=== PATIENT | female | born 1950 ===

== ENCOUNTER 2018-05-05 11:08 | Inpatient (IN) | payer MEDICARE, OTHER ==
[2018-05-05] MEDS ORDERED: Sodium Chloride 0.9% 1,000 ML IV STA ×2 (12:09→13:07)
[2018-05-05] MEDS ORDERED: Insulin Regular 100 units/ml IV STA (12:10)
[2018-05-05] MEDS ORDERED: Insulin Regular 100 units/ml ONE (12:38)
[2018-05-05 12:54] LABS: VENOUS BLOOD GAS BASE EXCESS -0.2 mmol/L (0.0-2.0); VENOUS BLOOD GAS PCO2 56 mmHg (40-60); VENOUS BLOOD GAS PO2 22 mm/Hg (30-55)
[2018-05-05 12:56] LABS: BASO # 0.1 K/uL (0.0-0.2); BASO % 0.7 % (0.0-2.0); EOS # 0.2 K/uL (0.0-0.7); EOS % 1.2 % (0.0-4.0); HEMOGLOBIN 15.7 g/dL (12.0-16.0); LYMPH # 1.9 K/uL (1.0-4.3); LYMPH % 12.8 % (20.0-40.0); MEAN CELL VOLUME 85.8 fl (81.0-99.0); MEAN CORPUSCULAR HEMOGLOBIN 28.8 pg (27.0-31.0); MEAN CORPUSCULAR HGB CONC 33.6 g/dL (33.0-37.0); MEAN PLATELET VOLUME 11.9 fl (7.2-11.7); MONO # 0.6 K/uL (0.0-0.8); MONO % 4.2 % (0.0-10.0); NEUT # 12.3 K/uL (1.8-7.0); NEUT % 81.1 % (50.0-75.0); NRBC % 0.1 % (0.0-0.0); RBC 5.45 Mil/uL (3.80-5.20); RED CELL DISTRIBUTION WIDTH 14.3 % (11.5-14.5); WHITE BLOOD COUNT 15.1 K/uL (4.8-10.8)
[2018-05-05 13:04] LABS: INR 0.9 (0.9-1.2); PARTIAL THROMBOPLASTIN TIME 30.9 Seconds (25.6-37.1); PROTHROMBIN TIME 9.6 Seconds (9.8-13.1)
--- NOTE | 2018-05-05 13:09 | ED PDOC ---
HPI: Altered Mental Status Time Seen by Provider: 05/05/18 11:57 Chief Complaint (Nursing): Weakness/Neurological Deficit Chief Complaint (Provider): Weakness/Neurological Deficit History Per: Patient History/Exam Limitations: None Onset/Duration Of Symptoms: Days Current Symptoms Are (Timing): Still Present Additional Complaint(s): 68 y/o female brought in by EMS with daughter at bedside who states home health aid called ambulance when patient didn't look well. Vomitus and patient found on the floor. Patient is usually baseline mental status but sleeping. Boil on the right groin was opened and drained last week however, patient has had generalized weakness since. Patient without active complaints. In addition, daughter states patient has had several strokes with right sided residual weakness in the past. PMD: [place] NIHSS Stroke Scale - Date/Time Evaluation Performed Date Performed: 05/05/18 Time Performed: 15:07 - How Severe is the Stroke Level of Consciousness: 1=Drowsy LOC to Questions: 0=Both comments correct LOC to commands: 0=Obeys both correctly Best Gaze: 0=Normal Visual: 0=No visual loss Facial: 0=Normal Motor Arm - Left: 0=No drift Motor Arm - Right: 1=Drift noted before 10 sec ((old)) Motor Leg - Left: 0=No drift Motor Leg - Right: 2=Falls before 5 sec Limb Ataxia: 0=Absent Sensory: 1=Mild to moderate loss Best Language: 0=No aphasia Dysarthia: 0=Normal articulation Extinction & Inattention (Neglect): 0=Normal, no object Score: 5 rTPA Inclusion/Exclusion - Refusal of Treatment Patient Refused Treatment: No - Inclusion Criteria for Altepase Patient is 18 years or Older: Yes Clinical DX Ischemic Stroke Cause Neurological Deficit: No Time of Onset Established Less Than 270 Mins Before TX Begin: No Risk/Benefit Discussed With Patient/Family Member Present: No - Exclusion Criteria for Altepase Evidence of an Intracranial Hemorrhage: Yes Past Medical History Reviewed: Historical Data, Nursing Documentation, Vital Signs Vital Signs: Last Vital Signs Temp 98.2 F 05/05/18 11:14 Pulse 88 05/05/18 12:55 Resp 20 05/05/18 12:55 BP 165/88 H 05/05/18 12:55 Pulse Ox 99 05/05/18 12:55 - Medical History PMH: No Chronic Diseases - Surgical History Surgical History: No Surg Hx - Family History Family History: States: Unknown Family Hx - Home Medications Home Medications: Ambulatory Orders Medication Instructions Recorded Clotrimazole 1% Cream [Lotrimin 1% 1 appl TOP BID 05/05/18 CREAM] Clotrimazole 1% [Lotrimin AF 1%] 1 appl TOP DAILY 05/05/18 Ergocalciferol (Vitamin D2) 50,000 unit PO QWK 05/05/18 [Vitamin D2] Escitalopram [Lexapro] 20 mg PO DAILY 05/05/18 Esomeprazole Magnesium [Nexium] 40 mg PO DAILY 05/05/18 Ezetimibe [Zetia] 10 mg PO DAILY 05/05/18 Insulin Glargine, Recombina 20 unit SC QAM 05/05/18 [Lantus] Insulin Glargine, Recombina 30 unit SC HS 05/05/18 [Lantus] Multivitamin [Multi-Vitamin Daily] 1 tab PO DAILY 05/05/18 Naproxen [Naprosyn] 500 mg PO Q12 05/05/18 Nitroglycerin [Nitrostat SL Tab] 0.3 mg SL Q5MIN PRN 05/05/18 Oxybutynin XL [Ditropan XL] 5 mg PO DAILY 05/05/18 Temazepam [Restoril] 15 mg PO HS 05/05/18 amLODIPine [Norvasc] 5 mg PO BID 05/05/18 - Allergies Allergies/Adverse Reactions: Allergies Allergy/AdvReac Type Severity Reaction Status Date / Time No Known Allergies Allergy Verified 05/05/18 11:29 Review of Systems ROS Statement: Except As Marked, All Systems Reviewed And Found Negative Constitutional: Positive for: Weakness Physical Exam - Reviewed Nursing Documentation Reviewed: Yes Vital Signs Reviewed: Yes - Physical Exam Appears: Positive for: No Acute Distress Head Exam: Positive for: ATRAUMATIC, NORMAL INSPECTION, NORMOCEPHALIC Skin: Positive for: Normal Color, Warm, Dry Eye Exam: Positive for: Normal appearance, EOMI, PERRL ENT: Positive for: Normal ENT Inspection, Other (Mucous membranes dry) Neck: Positive for: Normal, See Diagram (No C-spine tenderness) Cardiovascular/Chest: Positive for: Regular Rate, Rhythm. Negative for: Murmur Respiratory: Positive for: Normal Breath Sounds. Negative for: Respiratory Distress Gastrointestinal/Abdominal: Positive for: Normal Exam, Soft. Negative for: Tenderness Pelvic Exam: Positive for: Other (Right groin has no induration, no erythema, no edema, no tenderness. ) Back: Positive for: Normal Inspection, Other (No Cervical Spine Tenderness) Extremity: Positive for: Normal ROM. Negative for: Pedal Edema, Deformity Neurologic/Psych: Positive for: Alert, Oriented (x3). Negative for: Motor/ Sensory Deficits - Laboratory Results Result Diagrams: 05/05/18 12:45 05/05/18 14:40 - ECG O2 Sat by Pulse Oximetry: 99 (RA) Pulse Ox Interpretation: Normal - Radiology X-Ray: Interpreted by Me X-Ray Interpretation: No Acute Disease - Critical Care Total Time (In Min): 45 Medical Decision Making Medical Decision Making: Time: 1245 Plan: -- Venous Blood Gas -- Head CT w/o Contrast -- EKG -- CMP -- Troponin I -- ED Urine Dipstick -- CBC with differentials -- PTT -- Prothrombin Time -- CXR Portable -- HumuLIN 10 units IV -- Sodium Chloride IV 1000 mls/hr -- Sodium Chloride IV 1000 mls/hr -- Glucose, Blood, POC -- Urinalysis 15:13 Dr. Rodriguez paged. 15:[address] Castaneda. 15:[address] Rodriguez, states small bleed, appears nontraumatic, not neurosurgical emergency, admit to ICU and repeat CT in AM, MRI. Scribe Attestation: Documented by Sanya Ch acting as a scribe for Dr. Diamond Li MD. Provider Scribe Attestation: All medical record entries made by the Scribe were at my direction and personally dictated by me. I have reviewed the chart and agree that the record accurately reflects my personal performance of the history, physical exam, medical decision making, and the department course for this patient. I have also personally directed, reviewed, and agree with the discharge instructions and disposition. Disposition - Clinical Impression Clinical Impression: Dehydration, Uncontrolled diabetes mellitus, Cerebellar hemorrhage - Patient ED Disposition Is Patient to be Admitted: Yes - Disposition Disposition Time: 14:25 Condition: SERIOUS - Pt Status Changed To: Hospital Disposition Of: Inpatient - Admit Certification Admit to Inpatient:: After my assessment, the patient will require hospitalization for at least two midnights. This is because of the severity of symptoms shown, intensity of services needed, and/or the medical risk in this patient being treated as an outpatient. - POA Present On Arrival: Falls Or Trauma, Poor Glycemic Control
[2018-05-05 13:13] LABS: ALB/GLOB RATIO 1.4 (1.0-2.1); ALBUMIN 4.1 g/dL (3.5-5.0); ALT/SGPT 24 U/L (9-52); AST/SGOT 17 U/L (14-36); BLOOD UREA NITROGEN 20 mg/dl (7-17); CALCIUM 9.9 mg/dL (8.4-10.2); GFR NON-AFRICAN AMERICAN > 60
--- NOTE | 2018-05-05 13:25 | CARD ---
APPROVED REPORT Date of service: 05/05/2018 EKG Measurement Heart [id number] <Conclusion> Normal sinus rhythm Possible Left atrial enlargement Left axis deviation Incomplete left bundle branch block Prolonged QT Abnormal ECG
--- NOTE | 2018-05-05 14:35 | RAD ---
Date of service: 05/05/2018 HISTORY: Generalized weakness COMPARISON: No prior. FINDINGS: LUNGS: No active pulmonary disease. PLEURA: No significant pleural effusion identified, no pneumothorax apparent. CARDIOVASCULAR: No radiographic findings to suggest acute or significant cardiovascular disease. OSSEOUS STRUCTURES: No significant abnormalities. VISUALIZED UPPER ABDOMEN: Normal. OTHER FINDINGS: None. IMPRESSION: No active disease.
[2018-05-05 15:02] LABS: BLOOD UREA NITROGEN 19 mg/dl (7-17); CALCIUM 9.4 mg/dL (8.4-10.2); GFR NON-AFRICAN AMERICAN > 60
[2018-05-05 15:05] LABS: SQUAMOUS EPITHIAL 1 /hpf (0-5); URINE BILIRUBIN NEGATIVE (NEGATIVE); URINE BLOOD SMALL (NEGATIVE); URINE CLARITY CLOUDY (Clear); URINE COLOR YELLOW (YELLOW); URINE GLUCOSE (UA) >=500 mg/dL (Normal); URINE LEUKOCYTE ESTERASE NEG Leu/uL (Negative); URINE PROTEIN >=500 mg/dL (NEGATIVE); URINE UROBILINOGEN 0.2-1.0 mg/dL (0.2-1.0)
--- NOTE | 2018-05-05 15:06 | CT ---
Date of service: 05/05/2018 PROCEDURE: CT HEAD WITHOUT CONTRAST. HISTORY: Vertigo. Posttraumatic vomiting following a fall COMPARISON: 05/20/2010. TECHNIQUE: Axial computed tomography images were obtained through the head/brain without intravenous contrast. Radiation dose: Total exam DLP = 854.93 mGy-cm. This CT exam was performed using one or more of the following dose reduction techniques: Automated exposure control, adjustment of the mA and/or kV according to patient size, and/or use of iterative reconstruction technique. FINDINGS: HEMORRHAGE: Parenchymal hemorrhagic process left cerebellar hemisphere. It is difficult to determine if this is a hemorrhagic mass or uncomplicated intraparenchymal hemorrhage. BRAIN: No mass effect or edema. No atrophy or chronic microvascular ischemic changes. VENTRICLES: Unremarkable. No hydrocephalus. CALVARIUM: No evidence of displaced calvarial fracture. There prominent suture lines but these appear to been present on the prior CT scan from 05/20/2010. PARANASAL SINUSES: Unremarkable as visualized. No significant inflammatory changes. MASTOID AIR CELLS: Unremarkable as visualized. No inflammatory changes. OTHER FINDINGS: None. IMPRESSION: Left cerebellar hemorrhage. Is difficult to determine if this is posttraumatic hemorrhage, spontaneous intraparenchymal hemorrhage or hemorrhagic mass. Follow-up may be beneficial for further evaluation/ assessment. No displaced calvarial fracture. Communication of results: I discussed findings directly with the attending physician in the emergency department (Diamond Helton M.D.) at the time of this interpretation (15:01.
--- NOTE | 2018-05-05 15:24 | CP.PCM.PN ---
Subjective - Date & Time of Evaluation Date of Evaluation: 05/05/18 Time of Evaluation: 15:23 - Subjective Subjective: 68 yo female hx prior cva unwitnessed fall small left cerebelar hemorhage no mass rffrct no hydro repeat CT in AM Objective - Vital Signs/Intake and Output Vital Signs (last 24 hours): Temp Pulse Resp BP Pulse Ox 98.2 F 88 20 165/88 H 99 05/05/18 11:14 05/05/18 12:55 05/05/18 12:55 05/05/18 12:55 05/05/18 15:22 - Labs Labs: 05/05/18 12:45 05/05/18 14:40 PT 9.6 Seconds (9.8-13.1) L 05/05/18 12:45 INR 0.9 (0.9-1.2) 05/05/18 12:45 APTT 30.9 Seconds (25.6-37.1) 05/05/18 12:45
[2018-05-05] MEDS ORDERED: Fluconazole 150 MG TAB PO ONE (15:45)
[2018-05-05] MEDS ORDERED: Dextrose 50% SYRINGE Inj (50 ml) IV PRN (16:18)
[2018-05-05] MEDS ORDERED: Glucagon Recombinant 1 mg Inj IM PRN (16:18)
--- NOTE | 2018-05-05 17:08 | CP.PCM.CON ---
History of Present Illness - History of Present Illness History of Present Illness: 68 yr old woman with pmh of DM, HTN, and prior left sided MCA stroke, who fell at home sometime between 3 am and 7 am in her house, and was found to have a small left cerebellar bleed on CT scan. Miss Johnson lives with her daughter and she has baseline right sided hemiplegia and instability. She was found by home health aide earlier this am, when she fell and vomited. She said she felt dizzy and fell out of bed, after which ambulance arrived in the house and she was brought to the ER at [facility]. On examination , she is not able to give me a good history but daughter is present at bedside. PMH/PSH: as above FH/SH: Lives with daughter. No tobacco, no etoh. All: nkda. ON exam: AAOX3. PERRL. CN 2-12 normal. EOMI. right sided mild facial droop. RIght sided arm is contracted with about a 3/5 strength. Right leg is rotated inward with contracture as well. Left arm and leg are 5/5. SEnsory exam shows decreased ft, pin on right arm and leg. Speech fluent, and she can name and repeat. Past Patient History - Past Social History Smoking Status: Never Smoked - NEUROLOGICAL HX Cerebrovascular Accident: Yes - PSYCHIATRIC Hx Substance Use: No Meds Allergies/Adverse Reactions: Allergies Allergy/AdvReac Type Severity Reaction Status Date / Time No Known Allergies Allergy Verified 05/05/18 11:29 - Medications Medications: Current Medications Amlodipine Besylate (Norvasc) 10 mg PO DAILY [facility] Last Admin: 05/05/18 16:45 Dose: 10 mg Atorvastatin Calcium (Lipitor) 40 mg PO DAILY [facility] Clotrimazole (Lotrimin Af 1%) 1 applic TOP DAILY [facility] Dextrose (Dextrose 50% Inj) 0 ml IV STAT PRN; Protocol PRN Reason: Hypoglycemia Protocol Dextrose (Glutose 15) 0 gm PO ONCE PRN; Protocol PRN Reason: Hypoglycemia Protocol Glucagon (Glucagen Diagnostic Kit) 0 mg IM STAT PRN; Protocol PRN Reason: Hypoglycemia Protocol Home Med (Insulin Glargine, Recombina [Lantus]) 10 unit SC QAM [facility] Home Med (Insulin Glargine, Recombina [Lantus]) 15 unit SC HS [facility] Home Med (Multivitamin [Multi-Vitamin Daily]) 1 tab PO DAILY [facility] Home Med (Nitroglycerin [Nitrostat Sl Tab]) 0.3 mg SL Q5MIN PRN PRN Reason: chest pain Sodium Chloride (Sodium Chloride 0.9%) 1,000 mls @ 75 mls/hr IV .[id number] [facility] Stop: 05/06/18 16:35 Insulin Human Regular (Humulin R) 0 units SC ACHS [facility] PRN Reason: Protocol Labetalol HCl (Trandate) 20 mg IVP Q6 [facility] Pantoprazole Sodium (Protonix Ec Tab) 40 mg PO DAILY [facility] Results - Vital Signs Recent Vital Signs: Last Vital Signs Temp 98.2 F 05/05/18 11:14 Pulse 86 05/05/18 16:45 Resp 20 05/05/18 16:10 BP 163/85 H 05/05/18 16:45 Pulse Ox 96 05/05/18 15:53 - Labs Result Diagrams: 05/05/18 12:45 05/05/18 14:40 Labs: Laboratory Results - last 24 hr 05/05/18 05/05/18 05/05/18 11:29 12:32 12:45 WBC 15.1 H RBC 5.45 H Hgb 15.7 Hct 46.8 MCV 85.8 MCH 28.8 MCHC 33.6 RDW 14.3 Plt Count 228 MPV 11.9 H Neut % (Auto) 81.1 H Lymph % (Auto) 12.8 L [place] % (Auto) 4.2 Eos % (Auto) 1.2 Baso % (Auto) 0.7 Neut # (Auto) 12.3 H Lymph # (Auto) 1.9 [place] # (Auto) 0.6 Eos # (Auto) 0.2 Baso # (Auto) 0.1 PT INR APTT pO2 22 L ABG Carboxyhemoglobin 1.0 POC ABG HHb (Measured) 59.2 H ABG Methemoglobin 1.7 VBG pH 7.30 L VBG pCO2 56 VBG HCO3 22.9 VBG O2 Sat (Calc) 39.2 L VBG Base Excess -0.2 L VBG Hgb O2 Saturation 38.1 L Hemoglobin 15.9 Crit Value Called To Diamond bishop md Crit Value Called By 15 Crit Value Read Back Y Blood Gas Notified Time 1253 Sodium Potassium Chloride Carbon Dioxide Anion Gap BUN Creatinine Est GFR ( Amer) Est GFR (Non-Af Amer) POC Glucose (mg/dL) 422 H* Random Glucose Calcium Phosphorus Magnesium Total Bilirubin AST ALT Alkaline Phosphatase Troponin I Total Protein Albumin Globulin Albumin/Globulin Ratio Urine Color Urine Clarity Urine pH Ur Specific [place] Urine Protein Urine Glucose (UA) Urine Ketones Urine Blood Urine Nitrate Urine Bilirubin Urine Urobilinogen Ur Leukocyte Esterase Urine RBC (Auto) Urine Microscopic WBC Ur Squamous Epith Cells Urine Yeast (Budding) 05/05/18 05/05/18 05/05/18 12:45 12:45 14:20 WBC RBC Hgb Hct MCV MCH MCHC RDW Plt Count MPV Neut % (Auto) Lymph % (Auto) [place] % (Auto) Eos % (Auto) Baso % (Auto) Neut # (Auto) Lymph # (Auto) [place] # (Auto) Eos # (Auto) Baso # (Auto) PT 9.6 L INR 0.9 APTT 30.9 pO2 ABG Carboxyhemoglobin POC ABG HHb (Measured) ABG Methemoglobin VBG pH VBG pCO2 VBG HCO3 VBG O2 Sat (Calc) VBG Base Excess VBG Hgb O2 Saturation Hemoglobin Crit Value Called To Crit Value Called By Crit Value Read Back Blood Gas Notified Time Sodium 137 Potassium 3.7 Chloride 96 L Carbon Dioxide 25 Anion Gap 20 BUN 20 H Creatinine 0.6 L Est GFR ( Amer) > 60 Est GFR (Non-Af Amer) > 60 POC Glucose (mg/dL) Random Glucose 448 H* Calcium 9.9 Phosphorus Magnesium Total Bilirubin 1.0 AST 17 ALT 24 Alkaline Phosphatase 115 Troponin I < 0.0120 Total Protein 7.0 Albumin 4.1 Globulin 2.9 Albumin/Globulin Ratio 1.4 Urine Color Yellow Urine Clarity Cloudy Urine pH 6.0 Ur Specific [place] 1.028 Urine Protein >=500 Urine Glucose (UA) >=500 Urine Ketones 20 Urine Blood Small Urine Nitrate Negative Urine Bilirubin Negative Urine Urobilinogen 0.2-1.0 Ur Leukocyte Esterase Neg Urine RBC (Auto) 116 H Urine Microscopic WBC 5 Ur Squamous Epith Cells 1 Urine Yeast (Budding) Mod H 05/05/18 05/05/18 05/05/18 14:35 14:40 16:30 WBC RBC Hgb Hct MCV MCH MCHC RDW Plt Count MPV Neut % (Auto) Lymph % (Auto) [place] % (Auto) Eos % (Auto) Baso % (Auto) Neut # (Auto) Lymph # (Auto) [place] # (Auto) Eos # (Auto) Baso # (Auto) PT INR APTT pO2 ABG Carboxyhemoglobin POC ABG HHb (Measured) ABG Methemoglobin VBG pH VBG pCO2 VBG HCO3 VBG O2 Sat (Calc) VBG Base Excess VBG Hgb O2 Saturation Hemoglobin Crit Value Called To Crit Value Called By Crit Value Read Back Blood Gas Notified Time Sodium 139 Potassium 3.5 L Chloride 104 Carbon Dioxide 23 Anion Gap 16 BUN 19 H Creatinine 0.4 L Est GFR ( Amer) > 60 Est GFR (Non-Af Amer) > 60 POC Glucose (mg/dL) 234 H Random Glucose 273 H Calcium 9.4 Phosphorus 3.2 Magnesium 1.6 Total Bilirubin AST ALT Alkaline Phosphatase Troponin I Total Protein Albumin Globulin Albumin/Globulin Ratio Urine Color Urine Clarity Urine pH Ur Specific [place] Urine Protein Urine Glucose (UA) Urine Ketones Urine Blood Urine Nitrate Urine Bilirubin Urine Urobilinogen Ur Leukocyte Esterase Urine RBC (Auto) Urine Microscopic WBC Ur Squamous Epith Cells Urine Yeast (Budding) - Imaging and Cardiology CT scan - head Status: Image reviewed by me, Report reviewed by me (ct head shows cerebellar bleed. ) Assessment & Plan - Assessment and Plan (Free Text) Assessment: 68 yr old woman with left small cerebellar bleed that is not a surgical candidate. PLan: 1. MRI BRain, in light of prior stroke and history of fall. 2. Admit to ICU 3. Repeat ct head in am. 4. NO aspirin at this time. 5. PT/ot 6. Control htn within normal parameters Thank you. Our team will follow. DR. wang
--- NOTE | 2018-05-05 17:15 | CP.CCUPN ---
CCU Subjective - Physician Review Subjective (Free Text): 68F with h/o DM II; HTN, CAD, hyperlipidemia; multiple CVAs, having frequent falls at home; was found on the floor this AM by home health assistant with vomitus surrounding her and poorly responsive. Unknown if patient vomited first and subsequently fell to the floor versus having fell and then vomited, no urinary incontinence reported. Brought to ER and initial eval found to have left cerebellar hemorrhage. Official CT interpretation mentions unclear hemorrhagic mass lesion versus hemorrhagic stroke. IN ER, noted to be lethargic but easily arousable and responds appropriately. No distress noted, but daughter states speech appears to be mildly slurred than usual. Evaluated by NeuroSurg and deemed no surgical intervention required. Daughter states patient fell as early as 3 weeks ago and refused to seek medical care. Other vitals and I/O's reviewed. No fever spikes nor any low grade temps. Relatively tachycardic, HR 87-90s in sinus, BP range for systolic has been 160- 170's today, SPO2 95% on RA. ROS: No other pertinent negs or positives on 10+ system review PMSFH: All other Nursing and physician documentation reviewed to date; no new pertinent info noted relevant to current medical problems. Allergies: NKDA Home Meds: Lantus, Zetia, Vit D, Naprosyn, Ditropan, Restoril, Lexapro, Norvasc , EXAM- HEENT: no icterus, no gaze preference, Pupils 3 mm and reactive, + gag. NECK: No JVD, supple, carotids equal upstroke bilat/no bruits CHEST: decreased BS bases, no wheezes audible HEART: regular, distant, S1S2, no rubs or murmurs ABD: soft, obese, no tympany, no palp tenderness, BS hypoactive, no HS megaly. EXT: no edema; no peripheral/ digital cyanosis, no calf tenderness or palpable cords, distal pulses intact and symmetrical. NEURO: no focal motor deficits on L; mild RUE and RLE weakness = 4/5. SKIN: no rashes, warm and dry. LABS: WBC= 15.1 HGB= 15.7 PLTs= 228K Coags not elevated. VB.30/56/22 with 38% satn Un=250 K= 3.5 IK=080 HCO3= 23 BUN/Cr= 19/0.4 BS= 273 Mg= 1.6 Phos = 3.2 Trop #1 negative EKG: sinus 86/min, ?? old IWMI, poor R progression anteriorly. CXR and CT brain results reviewed: small left cerebellar hemorrhage, 4th ventricle open, no obvious massive local edema. Chest shows elevated R hemidiaphragm, no gross consolidation ( my interps) IMPRESSION / MAJOR PROBLEMS NOW: 1. Acute Cerebellar hemorrhage; spontaneous, unclear if atraumatic, patient is poor historian 2. Uncontrolled / Accelerated HTN 3. Uncontrolled DM II, r/o Hyperosmolar state PLAN; 1. Follow NeuroSurg recs, Neurochecks, seizure precautions, keep HOB elevated. Repeat brain imaging in AM. Get formal Neurology eval. If signs of clinical deterioration, would transfer to tertiary facility for definitive Neuro- monitoring and EVD. 2. Keep SBP no higher than 140-150. Resume Amlodipine, add Labetalol IV prn. If BP remains unresponsive, start Nicardipine drip. 3. Check serum osmolarity, maintain BS levels at approx 180 for now. 4. Hold all Home psychoactive meds: Lexapro, Restoril, and Ditropan. 5. No Advance Directives noted, full Code status.
[2018-05-05] MEDS ORDERED: Labetalol 5 mg/ml Inj 20ML IVP PRN (17:16)
--- NOTE | 2018-05-05 18:29 | MRI ---
Date of service: 05/05/2018 PROCEDURE: MRI BRAIN WITHOUT CONTRAST HISTORY: cerebellar bleed COMPARISON: Comparison is made to the previous same-day CT of the head without contrast. TECHNIQUE: Multiplanar, multisequence MR images of the brain were obtained without intravenous contrast enhancement. FINDINGS: HEMORRHAGE: There is focal intraparenchymal hemorrhage at the left cerebellum measures 2 centimeter in the AP diameter and 1.6 centimeter in the transverse diameter likely represent hemorrhagic mass. The possibility of primary or more likely metastasis should be considered. DWI: No evidence of an acute or early subacute infarction. BRAIN PARENCHYMA: Suspicious for hemorrhagic mass at the left cerebellum may represent metastasis. There is adjacent vasogenic edema in the left cerebellum. No evidence of significant volume loss. [id number] white matter changes likely represent chronic microvascular ischemic disease. VENTRICLES: Unremarkable. No hydrocephalus. CRANIUM: Unremarkable. ORBITS: Grossly unremarkable. PARANASAL SINUSES/MASTOIDS: Clear VASCULAR SYSTEM: Skull base flow voids intact. OTHER FINDINGS: None. IMPRESSION: Findings suspicious for hemorrhagic mass at the left cerebellum. The differential consideration includes hemorrhagic metastasis or less likely primary brain neoplasm. [id number] chronic microvascular white matter ischemic disease.
[2018-05-05] MEDS: Sodium Chloride 0.9% 1,000 ML IV SCH (20:21)
[2018-05-05] MEDS ORDERED: Labetalol 5 mg/ml Inj 20ML IVP SCH (22:00)
[2018-05-05] MEDS: Insulin Regular 100 units/ml SC SCH (22:40)
[2018-05-06 05:36] LABS: BASO # 0.1 K/uL (0.0-0.2); BASO % 0.8 % (0.0-2.0); EOS # 0.2 K/uL (0.0-0.7); EOS % 1.2 % (0.0-4.0); HEMOGLOBIN 14.7 g/dL (12.0-16.0); LYMPH # 2.5 K/uL (1.0-4.3); LYMPH % 18.5 % (20.0-40.0); MEAN CELL VOLUME 85.4 fl (81.0-99.0); MEAN CORPUSCULAR HEMOGLOBIN 28.7 pg (27.0-31.0); MEAN CORPUSCULAR HGB CONC 33.6 g/dL (33.0-37.0); MEAN PLATELET VOLUME 11.3 fl (7.2-11.7); MONO # 0.7 K/uL (0.0-0.8); NEUT # 10.2 K/uL (1.8-7.0); NEUT % 74.5 % (50.0-75.0); RBC 5.13 Mil/uL (3.80-5.20); RED CELL DISTRIBUTION WIDTH 14.5 % (11.5-14.5); WHITE BLOOD COUNT 13.6 K/uL (4.8-10.8)
[2018-05-06 05:52] LABS: LDL CHOLESTEROL 126 mg/dL (0-129)
[2018-05-06 05:58] LABS: ALB/GLOB RATIO 1.3 (1.0-2.1); ALBUMIN 3.3 g/dL (3.5-5.0); ALT/SGPT 19 U/L (9-52); AST/SGOT 21 U/L (14-36); BLOOD UREA NITROGEN 16 mg/dl (7-17); CALCIUM 8.6 mg/dL (8.4-10.2); GFR NON-AFRICAN AMERICAN > 60; HDL CHOLESTEROL 44 MG/DL (30-70)
--- NOTE | 2018-05-06 07:12 | CP.PCM.HP ---
History of Present Illness - History of Present Illness History of Present Illness: H&P from 05/05/18 HPI: 68 YO Female with PMHx of HTN, DM, CVA (x5, with residual R sided weakness ) in the past presents to [facility] ED after being found in the floor on her own vomit. Pt does not recall passing out, or recall any seizure like activity (no urinary or fecal incontinence, tongue biting). Pt was found on the floor by her homemaker and ambulance was called and pt was brought to the hospital. Pt states that she does not remember falling, but endorses feeling weak for the past week. Denies headache, blurry vision, diplopia, chest pain, palpitations, dyspnea, n/v/d/c. Endorsing nausea and vomiting day prior to her fall. Daughter by bedside, Patrick [phone] PMD: [facility] PMHx: HTN, DM, CVA x 5 SurgHx: cholesectomy, SH: 50+ yrs smoking hx, current smoker, denies ETOH and illicit drug use Allergies: NKDA Present on Admission - Present on Admission Any Indicators Present on Admission: No Review of Systems - Constitutional Constitutional: Malaise, Weakness. absent: Headache - EENT Eyes: absent: Blurred Vision, Diplopia - Cardiovascular Cardiovascular: absent: Chest Pain, Dyspnea - Respiratory Respiratory: absent: Cough, Dyspnea - Gastrointestinal Gastrointestinal: absent: Abdominal Pain - Genitourinary Genitourinary: absent: Dysuria - Musculoskeletal Musculoskeletal: Other (Baseline R sided weakness from previous CVA) - Neurological Neurological: Other (walks with a walker) Past Patient History - Past Medical History & Family History Past Medical History?: Yes - Past Social History Smoking Status: Smoker Currrent Status Unknown Alcohol: None Drugs: Denies Home Situation {Lives}: With Family (with daugher and help by homemaker) - NEUROLOGICAL HX Cerebrovascular Accident: Yes - MUSCULOSKELETAL/RHEUMATOLOGICAL Hx Falls: Yes - PSYCHIATRIC Hx Substance Use: No Meds Allergies/Adverse Reactions: Allergies Allergy/AdvReac Type Severity Reaction Status Date / Time No Known Allergies Allergy Verified 05/05/18 11:29 Physical Exam - Constitutional Appears: No Acute Distress, Other (lethergic ) - Eye Exam Eye Exam: EOMI, Normal appearance - ENT Exam ENT Exam: Mucous Membranes Dry - Respiratory Exam Respiratory Exam: Clear to Auscultation Bilateral, Wheezes, NORMAL BREATHING PATTERN - Cardiovascular Exam Cardiovascular Exam: REGULAR RHYTHM, +S1, +S2, Systolic Murmur - GI/Abdominal Exam GI & Abdominal Exam: Normal Bowel Sounds, Soft. absent: Tenderness - Extremities Exam Extremities exam: Positive for: normal inspection Additional comments: RUE contracted, residual weakness, poor strength RLE weaker then LLE Sensory intact in L side, decreased in the right throughout CN intact - Neurological Exam Neurological exam: Alert, CN II-XII Intact, Oriented x3 Results - Vital Signs Recent Vital Signs: Last Vital Signs Temp 98.3 F 05/06/18 05:00 Pulse 86 05/06/18 06:00 Resp 22 05/06/18 06:00 BP 140/68 05/06/18 06:00 Pulse Ox 100 05/06/18 06:00 - Labs Result Diagrams: 05/06/18 05:09 05/06/18 05:09 Labs: Laboratory Results - last 24 hr 05/05/18 05/05/18 05/05/18 11:29 12:32 12:45 WBC 15.1 H RBC 5.45 H Hgb 15.7 Hct 46.8 MCV 85.8 MCH 28.8 MCHC 33.6 RDW 14.3 Plt Count 228 MPV 11.9 H Neut % (Auto) 81.1 H Lymph % (Auto) 12.8 L [place] % (Auto) 4.2 Eos % (Auto) 1.2 Baso % (Auto) 0.7 Neut # (Auto) 12.3 H Lymph # (Auto) 1.9 [place] # (Auto) 0.6 Eos # (Auto) 0.2 Baso # (Auto) 0.1 PT INR APTT pO2 22 L ABG Carboxyhemoglobin 1.0 POC ABG HHb (Measured) 59.2 H ABG Methemoglobin 1.7 VBG pH 7.30 L VBG pCO2 56 VBG HCO3 22.9 VBG O2 Sat (Calc) 39.2 L VBG Base Excess -0.2 L VBG Hgb O2 Saturation 38.1 L Hemoglobin 15.9 Crit Value Called To Diamond bishop md Crit Value Called By 15 Crit Value Read Back Y Blood Gas Notified Time 1253 Sodium Potassium Chloride Carbon Dioxide Anion Gap BUN Creatinine Est GFR ( Amer) Est GFR (Non-Af Amer) POC Glucose (mg/dL) 422 H* Random Glucose Serum Osmolality Calcium Phosphorus Magnesium Total Bilirubin AST ALT Alkaline Phosphatase Troponin I Total Protein Albumin Globulin Albumin/Globulin Ratio Triglycerides Cholesterol LDL Cholesterol Direct HDL Cholesterol TSH 3rd Generation Urine Color Urine Clarity Urine pH Ur Specific [place] Urine Protein Urine Glucose (UA) Urine Ketones Urine Blood Urine Nitrate Urine Bilirubin Urine Urobilinogen Ur Leukocyte Esterase Urine RBC (Auto) Urine Microscopic WBC Ur Squamous Epith Cells Urine Yeast (Budding) 05/05/18 05/05/18 05/05/18 12:45 12:45 14:20 WBC RBC Hgb Hct MCV MCH MCHC RDW Plt Count MPV Neut % (Auto) Lymph % (Auto) [place] % (Auto) Eos % (Auto) Baso % (Auto) Neut # (Auto) Lymph # (Auto) [place] # (Auto) Eos # (Auto) Baso # (Auto) PT 9.6 L INR 0.9 APTT 30.9 pO2 ABG Carboxyhemoglobin POC ABG HHb (Measured) ABG Methemoglobin VBG pH VBG pCO2 VBG HCO3 VBG O2 Sat (Calc) VBG Base Excess VBG Hgb O2 Saturation Hemoglobin Crit Value Called To Crit Value Called By Crit Value Read Back Blood Gas Notified Time Sodium 137 Potassium 3.7 Chloride 96 L Carbon Dioxide 25 Anion Gap 20 BUN 20 H Creatinine 0.6 L Est GFR ( Amer) > 60 Est GFR (Non-Af Amer) > 60 POC Glucose (mg/dL) Random Glucose 448 H* Serum Osmolality Calcium 9.9 Phosphorus Magnesium Total Bilirubin 1.0 AST 17 ALT 24 Alkaline Phosphatase 115 Troponin I < 0.0120 Total Protein 7.0 Albumin 4.1 Globulin 2.9 Albumin/Globulin Ratio 1.4 Triglycerides Cholesterol LDL Cholesterol Direct HDL Cholesterol TSH 3rd Generation Urine Color Yellow Urine Clarity Cloudy Urine pH 6.0 Ur Specific [place] 1.028 Urine Protein >=500 Urine Glucose (UA) >=500 Urine Ketones 20 Urine Blood Small Urine Nitrate Negative Urine Bilirubin Negative Urine Urobilinogen 0.2-1.0 Ur Leukocyte Esterase Neg Urine RBC (Auto) 116 H Urine Microscopic WBC 5 Ur Squamous Epith Cells 1 Urine Yeast (Budding) Mod H 05/05/18 05/05/18 05/05/18 14:35 14:40 16:30 WBC RBC Hgb Hct MCV MCH MCHC RDW Plt Count MPV Neut % (Auto) Lymph % (Auto) [place] % (Auto) Eos % (Auto) Baso % (Auto) Neut # (Auto) Lymph # (Auto) [place] # (Auto) Eos # (Auto) Baso # (Auto) PT INR APTT pO2 ABG Carboxyhemoglobin POC ABG HHb (Measured) ABG Methemoglobin VBG pH VBG pCO2 VBG HCO3 VBG O2 Sat (Calc) VBG Base Excess VBG Hgb O2 Saturation Hemoglobin Crit Value Called To Crit Value Called By Crit Value Read Back Blood Gas Notified Time Sodium 139 Potassium 3.5 L Chloride 104 Carbon Dioxide 23 Anion Gap 16 BUN 19 H Creatinine 0.4 L Est GFR ( Amer) > 60 Est GFR (Non-Af Amer) > 60 POC Glucose (mg/dL) 234 H Random Glucose 273 H Serum Osmolality Calcium 9.4 Phosphorus 3.2 Magnesium 1.6 Total Bilirubin AST ALT Alkaline Phosphatase Troponin I Total Protein Albumin Globulin Albumin/Globulin Ratio Triglycerides Cholesterol LDL Cholesterol Direct HDL Cholesterol TSH 3rd Generation Urine Color Urine Clarity Urine pH Ur Specific [place] Urine Protein Urine Glucose (UA) Urine Ketones Urine Blood Urine Nitrate Urine Bilirubin Urine Urobilinogen Ur Leukocyte Esterase Urine RBC (Auto) Urine Microscopic WBC Ur Squamous Epith Cells Urine Yeast (Budding) 05/05/18 05/05/18 05/06/18 18:00 22:17 05:09 WBC RBC Hgb Hct MCV MCH MCHC RDW Plt Count MPV Neut % (Auto) Lymph % (Auto) [place] % (Auto) Eos % (Auto) Baso % (Auto) Neut # (Auto) Lymph # (Auto) [place] # (Auto) Eos # (Auto) Baso # (Auto) PT INR APTT pO2 ABG Carboxyhemoglobin POC ABG HHb (Measured) ABG Methemoglobin VBG pH VBG pCO2 VBG HCO3 VBG O2 Sat (Calc) VBG Base Excess VBG Hgb O2 Saturation Hemoglobin Crit Value Called To Crit Value Called By Crit Value Read Back Blood Gas Notified Time Sodium 138 Potassium 3.6 Chloride 103 Carbon Dioxide 22 Anion Gap 17 BUN 16 Creatinine 0.5 L Est GFR ( Amer) > 60 Est GFR (Non-Af Amer) > 60 POC Glucose (mg/dL) 197 H Random Glucose 224 H Serum Osmolality 359 H Calcium 8.6 Phosphorus Magnesium Total Bilirubin 1.0 AST 21 ALT 19 Alkaline Phosphatase 83 Troponin I Total Protein 6.0 L Albumin 3.3 L Globulin 2.6 Albumin/Globulin Ratio 1.3 Triglycerides 233 H Cholesterol 223 H LDL Cholesterol Direct 126 HDL Cholesterol 44 TSH 3rd Generation 2.53 Urine Color Urine Clarity Urine pH Ur Specific [place] Urine Protein Urine Glucose (UA) Urine Ketones Urine Blood Urine Nitrate Urine Bilirubin Urine Urobilinogen Ur Leukocyte Esterase Urine RBC (Auto) Urine Microscopic WBC Ur Squamous Epith Cells Urine Yeast (Budding) 05/06/18 05/06/18 05:09 05:24 WBC 13.6 H RBC 5.13 Hgb 14.7 Hct 43.8 MCV 85.4 MCH 28.7 MCHC 33.6 RDW 14.5 Plt Count 208 MPV 11.3 Neut % (Auto) 74.5 Lymph % (Auto) 18.5 L [place] % (Auto) 5.0 Eos % (Auto) 1.2 Baso % (Auto) 0.8 Neut # (Auto) 10.2 H Lymph # (Auto) 2.5 [place] # (Auto) 0.7 Eos # (Auto) 0.2 Baso # (Auto) 0.1 PT INR APTT pO2 ABG Carboxyhemoglobin POC ABG HHb (Measured) ABG Methemoglobin VBG pH VBG pCO2 VBG HCO3 VBG O2 Sat (Calc) VBG Base Excess VBG Hgb O2 Saturation Hemoglobin Crit Value Called To Crit Value Called By Crit Value Read Back Blood Gas Notified Time Sodium Potassium Chloride Carbon Dioxide Anion Gap BUN Creatinine Est GFR ( Amer) Est GFR (Non-Af Amer) POC Glucose (mg/dL) 191 H Random Glucose Serum Osmolality Calcium Phosphorus Magnesium Total Bilirubin AST ALT Alkaline Phosphatase Troponin I Total Protein Albumin Globulin Albumin/Globulin Ratio Triglycerides Cholesterol LDL Cholesterol Direct HDL Cholesterol TSH 3rd Generation Urine Color Urine Clarity Urine pH Ur Specific [place] Urine Protein Urine Glucose (UA) Urine Ketones Urine Blood Urine Nitrate Urine Bilirubin Urine Urobilinogen Ur Leukocyte Esterase Urine RBC (Auto) Urine Microscopic WBC Ur Squamous Epith Cells Urine Yeast (Budding) Assessment & Plan (1) Hypertension Status: Chronic (2) Cerebellar hemorrhage Status: Acute (3) Dehydration Status: Acute (4) Uncontrolled diabetes mellitus Status: Acute - Assessment and Plan (Free Text) Assessment: Assessment/Plan: 68 YO Female with PMHx of HTN, DM, CVA (x5, with residual R sided weakness) is admitted for uncontrolled DM and acute hemorrhagic stroke (cerebellar). -NIHSS score initially 5 -neurosurgery and neurology on board -neuro checks -control bp to keep <140/80 -CT head sig for cerebellar hemorrhage -MRI head suspicious for hemorrhagic mass at the L cerebellum. -repeat CT head this AM -plan as ordered -Hyperosmolar states with uncontrolled DM -swallow and speech eval -pt/ot on board Pt seen and examined with Dr. Bangura
[2018-05-06] MEDS: Insulin Regular 100 units/ml SC SCH ×3 (08:07→16:59)
[2018-05-06] MEDS: Pantoprazole 40 mg EC Tab PO SCH (08:43)
[2018-05-06] MEDS: Multivitamin With Minerals Tab PO SCH (08:43)
[2018-05-06] MEDS ORDERED: Patient's Own Med (Multivitamin [Multi-Vitamin Daily] 1 TAB) PO SCH (09:00)
--- NOTE | 2018-05-06 10:00 | CP.CCUPN ---
CCU Subjective - Physician Review Subjective (Free Text): Awake alert and appropriately responsive, nurses report patient trying to get OOB herself, denies any dizziness, headaches nor any new focal weakness. SBp has been in the 160s. Other vitals and I/O's reviewed. No fever spikes nor any low grade temps. Relatively tachycardic, HR 87-90s in sinus, BP range for systolic has been 160- 170's today, SPO2 95% on RA. ROS: No other pertinent negs or positives on 10+ system review PMSFH: All other Nursing and physician documentation reviewed to date; no new pertinent info noted relevant to current medical problems. EXAM- HEENT: no icterus, no gaze preference, Pupils 3 mm and reactive. NECK: No JVD, supple, carotids equal upstroke bilat/no bruits CHEST: decreased BS bases, no wheezes audible HEART: regular, distant, S1S2, no rubs or murmurs ABD: soft, no tympany, no palp tenderness, BS hypoactive, no HS megaly. EXT: no peripheral/ digital cyanosis, no calf tenderness or palpable cords, distal pulses intact and symmetrical. NEURO: no focal motor deficits on L; mild RLE weakness = 4/5. SKIN: no rashes, warm and dry. LABS: WBC= 13.6 HGB= 14.7 PLTs= 208K Ji=161 K= 3.6 ME=071 HCO3= 22 BUN/Cr= 16/0.5 BS= 224 MRI brain results reviewed, showing possible hemorrhagic mass lesion. IMPRESSION / MAJOR PROBLEMS NOW: 1. Acute Cerebellar hemorrhage spontaneous, unclear if atraumatic, patient is poor historian 2. Uncontrolled / Accelerated HTN 3. Uncontrolled DM II, with Hyperosmolar state PLAN: 1. Repeat CT Brain pendimng for this AM. 2. Maintain SBP control, ni higher than 140-150. 3. Serum Osmo elevated, suggestive of uncontrolled hyperglycemia with Hyperosmolar state. Get Endocrine eval, continue IVF hydration, and resume Lantus. Serial serum osmo levels. 4. Hold all Home psychoactive meds: Lexapro, Restoril, and Ditropan. CCU Objective - Vital Signs / Intake & Output Vital Signs (Last 4 hours): Vital Signs Temp Pulse Resp BP Pulse Ox 05/06/18 08:50 87 152/72 H 05/06/18 08:00 98.5 F 78 17 152/72 H 100 05/06/18 06:00 86 22 140/68 100 Intake and Output (Last 8hrs): Intake & Output 05/05/18 05/06/18 05/06/18 22:59 06:59 14:59 Intake Total 600 150 Balance 600 150 Weight 170 lb Intake: IV 600 150
--- NOTE | 2018-05-06 13:15 | CT ---
Date of service: 05/06/2018 PROCEDURE: CT HEAD WITHOUT CONTRAST. HISTORY: CVA COMPARISON: Noncontrast head CT 05/05/2018. Noncontrast brain MRI 05/05/2018. TECHNIQUE: Axial computed tomography images were obtained through the head/brain without intravenous contrast. Radiation dose: Total exam DLP = 848.86 mGy-cm. This CT exam was performed using one or more of the following dose reduction techniques: Automated exposure control, adjustment of the mA and/or kV according to patient size, and/or use of iterative reconstruction technique. FINDINGS: HEMORRHAGE: Interval a hyperdensity is again identified the left cerebellum measuring 1.1 x 1.4 cm lucency which covers a stable but large territory than the hyperdense focus. No evidence to suggest increasing hemorrhage at the left cerebellum or remainder of the brain and there is no significant mass effect appreciated at this time and hepatic could reflect hemorrhage within an area of cystic encephalomalacia the hemorrhagic neoplasm is not completely excluded common metastatic or, less likely primary. BRAIN: Reiterated age related neuro degenerative findings comprised of diffuse cerebral atrophy chronic microangiopathy without significant interval changes appreciated above or below the tentorium. VENTRICLES: Unremarkable. No hydrocephalus. CALVARIUM: Unremarkable. PARANASAL SINUSES: Unremarkable as visualized. No significant inflammatory changes. MASTOID AIR CELLS: Unremarkable as visualized. No inflammatory changes. OTHER FINDINGS: None. IMPRESSION: 1. Stable small hyperdensity at the medial left cerebellum with surrounding lucency but lack of mass effect. The lack of mass effect is important and may indicate prior cystic encephalomalacia here with potential posttraumatic hemorrhage although underlying neoplasm remains difficult to exclude here on metastatic or primary basis. Contrast CT or MRI may be helpful. No interval new hemorrhage or increase in hemorrhage appreciable at this time. 2. Age related neuro degenerative findings reiterated. Findings discussed with Dr. Morales 05/06/2018 12:55 p.m..
[2018-05-06] MEDS: Sodium Chloride 0.9% 1,000 ML IV SCH (13:46)
[2018-05-06] MEDS ORDERED: Glucagon Recombinant 1 mg Inj IM PRN (17:29)
[2018-05-06] MEDS ORDERED: Dextrose 50% SYRINGE Inj (50 ml) IV PRN (17:29)
[2018-05-06] MEDS ORDERED: Insulin Detemir 100 Units/ml Inj SC SCH (22:00)
[2018-05-06] MEDS: Insulin Lispro (humaLOG) 100 Units/ml Inj SC SCH (23:10)
--- NOTE | 2018-05-07 06:14 | CON ---
DATE: 05/06/2018 ENDOCRINOLOGY CONSULT LOCATION: Room 422, ICU. HISTORY OF PRESENT ILLNESS: This is a 68-year-old female with known history of type 2 insulin requiring diabetes, presenting here with an apparent loss of consciousness and has been evaluated to have a cerebellar hemorrhage with a significant history of previous cerebrovascular events with residual right-sided weakness and is now being referred for diabetic evaluation and management. PAST MEDICAL HISTORY: History of type 2 insulin-requiring diabetes, on a dual basal insulin regimen using Lantus given as 30 units of bedtime and 20 units in the morning. The family members said that she was not on any kind of short or rapid acting insulin at home. History of hypertension and dyslipidemia, history of coronary artery disease, and significant cerebrovascular disease. Apparently, having five previous events with residual right-sided weakness. Also history of cholelithiasis and underwent a cholecystectomy some years ago. FAMILY HISTORY: Positive for diabetes and hypertension. SOCIAL HISTORY: The patient is a current smoker with 50 pack years of significant nicotine dependence. She has a supportive family otherwise and has a homemaker who helps out to her day to day needs. REVIEW OF SYSTEMS: As mentioned above, admits to recent bouts of dizziness and lightheadedness, worse on the day of admission with generalized body weakness and increasing hypersomnolence and lethargy. However, she eventually had agitation in the hospital as noted. No chest pains or palpitations or PND. Her oral intake has been variable with episodic dyspepsia and vague upper abdominal pains with habitual constipation. PHYSICAL EXAMINATION: GENERAL: This is an average built female, in no apparent distress. VITAL SIGNS: Blood pressure of 140/80, pulse of 70 beats per minute and regular, temperature 98, respirations 20, height is 5 feet 7 inches, weight is 170 pounds. HEENT: Head normocephalic. Eyes anicteric with pink conjunctivae. Funduscopy, not possible at this time. Ears, nose and throat, otherwise, normal. NECK: Supple. Thyroid gland is normal in size. No carotid bruits or cervical adenopathy. CARDIOPULMONARY: Some adynamic precordium. S1, S2 rapid and regular. LUNGS: Clear to auscultation. ABDOMEN: Flat, soft with positive bowel sounds. EXTREMITIES: No peripheral edema. Pulses are +2 bilaterally. LABORATORY DATA: Her chemistry showed a BUN of 16, sodium 138, potassium 3.6, chloride 103, CO2 of 22, glucose 224, creatinine 0.5. Her glucose levels are fluctuating, ranging from 191 to 316 and 391 mg/dL. Her hemoglobin A1c is 15%. Her TSH is 2.53. ASSESSMENT: This is a 68-year-old female with uncontrolled and decompensated type 2 insulin-requiring diabetes with extremes of glycemic fluctuations and now with supervening hyperglycemic accelerations and clearly has suboptimal metabolic control of her diabetic condition even prior to this admission with a hemoglobin A1c of 15%. She has only been using basal insulin with no apparent rapid acting insulin to cover her mealtime insulin requirements as noted. She also has an acute cerebrovascular event with cerebellar hemorrhage and significant history of previous cerebrovascular events with residual right-sided weakness and also has underlying coronary artery disease. She also has diabetic microvascular complications of retinopathy and polyneuropathy as noted. PLAN OF MANAGEMENT: We will modify her current insulin regimen and discontinue the Lantus which we do not have available in our hospital formulary and switch her over to basal insulin using Levemir starting at 30 units subcu at bedtime daily to start tonight. We will add also Humalog at 12 units subcu t.i.d. before meals to start today as ordered. We will modify the coverage scale to obviate hypoglycemia and detailed orders have been given. We will obtain serial chemistries and supplement accordingly needed. We will reinforce with the family that she also needs rapid acting insulin to cover her mealtime insulin requirement besides the Lantus being given twice daily at home. We will follow and advise accordingly. Sangita Perez MD
[2018-05-07 06:23] LABS: BASO # 0.1 K/uL (0.0-0.2); BASO % 0.8 % (0.0-2.0); EOS # 0.3 K/uL (0.0-0.7); EOS % 2.5 % (0.0-4.0); HEMOGLOBIN 13.3 g/dL (12.0-16.0); LYMPH # 2.4 K/uL (1.0-4.3); MEAN CELL VOLUME 84.9 fl (81.0-99.0); MEAN CORPUSCULAR HGB CONC 34.2 g/dL (33.0-37.0); MEAN PLATELET VOLUME 10.9 fl (7.2-11.7); MONO # 0.7 K/uL (0.0-0.8); MONO % 5.8 % (0.0-10.0); NEUT # 8.4 K/uL (1.8-7.0); NEUT % 70.9 % (50.0-75.0); NRBC % 0.1 % (0.0-0.0); RBC 4.59 Mil/uL (3.80-5.20); RED CELL DISTRIBUTION WIDTH 14.4 % (11.5-14.5); WHITE BLOOD COUNT 11.8 K/uL (4.8-10.8)
[2018-05-07 06:42] LABS: ALB/GLOB RATIO 1.2 (1.0-2.1); ALT/SGPT 21 U/L (9-52); AST/SGOT 15 U/L (14-36); BLOOD UREA NITROGEN 17 mg/dl (7-17); CALCIUM 8.4 mg/dL (8.4-10.2); GFR NON-AFRICAN AMERICAN > 60
[2018-05-07] MEDS: Insulin Lispro (humaLOG) 100 Units/ml Inj SC SCH ×7 (07:28→22:06)
[2018-05-07] MEDS: Multivitamin With Minerals Tab PO SCH (08:16)
[2018-05-07] MEDS: Pantoprazole 40 mg EC Tab PO SCH (08:31)
[2018-05-07] MEDS: Potassium Chloride 20 mEq/15 ml LIQ UD PO SCH (10:58)
--- NOTE | 2018-05-07 13:45 | PN ---
DATE: 05/07/2018 SUBJECTIVE: The patient seen and examined. The patient seen for Dr. Bangura while he is away. The patient with intracranial bleed in intensive care unit. Hospital records reviewed. The patient is sleeping, arousable, feels okay. Denies any chest pain or shortness of breath. Complains of mild headache, which seems to be improving. PHYSICAL EXAMINATION: GENERAL: The patient is in no acute distress. VITAL SIGNS: Stable. HEART: S1 and S2. Normal and regular. LUNGS: Good bilateral air exchange. ABDOMEN: Soft and nontender. EXTREMITIES: No edema. No calf swelling. No tenderness. No acute ischemia. LEGUILLON DEBEADER: The patient is awake, responsive.. There are no new changes in physical exam or central nervous system. DIAGNOSTIC DATA: Available diagnostic data reviewed. Telemetry monitoring does not show significant arrhythmia. ASSESSMENT AND PLAN: Overall, the patient's general medical condition is stable. Plan as ordered. Case and plan discussed with the patient and go cart mechanic. Hal Mason MD
--- NOTE | 2018-05-07 15:58 | PN ---
DATE: 05/07/2018 ENDO FOLLOWUP NOTE LOCATION: In room 422 ICU. SUBJECTIVE: This is a 68-year-old female with recent uncontrolled type 2 insulin-requiring diabetes, now being followed closely for metabolic management. She presented here with an apparent loss of consciousness and gait instability and a possible new MRI evidence of a cerebellar hemorrhage as noted. Her glycemic levels are much improved as noted overnight and the latest glucose value today is 180 mg/dL. Her bedtime glucose was still elevated at 329 mg/dL. LABORATORY DATA: Her latest chemistries showed a BUN of 17, sodium 140, potassium 3.4, chloride 104, CO2 of 29, glucose 207, and creatinine 0.6. ASSESSMENT AND PLAN: So at this time, we will modify once again her basal and bolus insulin regimen and actually increase the basal insulin with Levemir to be given as 40 units subcutaneously at bedtime daily to start tonight. We will titrate her regimen to optimize metabolic control accordingly. We will also continue her Humalog given as 12 units subcutaneously t.i.d. before meals as ordered. We will continue also the low dose correction scale using Humalog insulin to obviate hypoglycemia and detailed orders have been given. We will obtain serial chemistries and supplement accordingly as needed. We will follow. Sangita Perez MD
[2018-05-07] MEDS: Insulin Detemir 100 Units/ml Inj SC SCH (22:07)
--- NOTE | 2018-05-07 22:37 | PN ---
PROCEDURE DATE: 05/07/2018 CRITICAL CARE PROGRESS NOTE LOCATION: The patient is in ICU, bed 422. TIME SPENT: 35 minutes. The patient is seen, evaluated at the bedside. Past medical, surgical, social, and family history reviewed. 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 CT showed a small left cerebellar bleed, seen by Neurosurgery, recommended repeat CT in the morning with no significant change compared to baseline on admission, seen by neurology consult. Overnight, remains normotensive, afebrile. Telemetry sinus rhythm. This morning, alert and awake. Follows commands appropriate. Complaining of left occipital headache, relieved with Tylenol. Denies nausea, vomiting, shortness of breath. No chest pain or palpitation. No abdominal discomfort. No diarrhea. No dysuria. Able to tolerate p.o. No signs of aspiration noted. PHYSICAL EXAMINATION: VITAL SIGNS: Temperature 98.5, heart rate 79, blood pressure 131/74, respiratory rate 18 thoracoabdominal, saturating 96% on 2 liters nasal cannula. Intake 1500, output not documented. Weight 170 pounds. HEAD, EYES, EARS, NOSE, AND THROAT: Pupils are reactive. Conjunctivae pink. Sclerae white. NECK: Supple. Trachea central. CHEST: Bilateral breath sounds, clear to auscultation. HEART: Rhythm regular. S1 and S2 normal intensity. No S3 or S4 gallop. No audible murmur. ABDOMEN: Bowel sounds present. Soft. Liver and spleen not palpable. EXTREMITIES: Left arm and left leg with normal strength, able to lift off gravity, reduced sensation on the left to touch. Right-sided arm is contracted with a strength of 3/5. Right leg is rotated inward with contracture. SKIN: Without rash. No sacral decubitus noted. CURRENT MEDICATIONS: Include Tylenol 650 every 4 hours p.r.n., Norvasc 10 mg p.o. daily, Lipitor 80 mg p.o. daily, Lotrimin 1% one application topically daily, glucagon 1 mg_ IM stat for hypoglycemia prn, Levemir 30 units subcu at bedtime, Humalog insulin 12 units subcu before meals and at bedtime, labetalol 20 mg IV every 6 hours p.r.n., multivitamin tablet daily, nitroglycerin 0.4 mg sublingual p.r.n., Protonix 40 p.o. daily, potassium chloride 20 mEq p.o. daily. LABORATORY DATA: WBC 11.8, hemoglobin 13.3, hematocrit 39, platelet count of 193, neutrophils 70.9, lymphocytes 20, monocytes 5.8. PT 9.6, INR 0.9, PTT 30.9. ABG: PH is 7.030, pO2 is 22, hemoglobin 15.9. SMA-7: Sodium 140, potassium 3.4, chloride 104, CO2 is 29, blood urea nitrogen 70, creatinine 0.6, random glucose 180, serum osmolality 302, calcium 8.4, total bilirubin 0.7, AST 15, ALT 21, alkaline phosphatase 79, total protein 5.04, albumin 3, albumin-globulin ratio 1.92. Urinalysis: Wbc 5, rbc 116. Microbiology: Head CT done this morning shows interval stable small hyperdensity at the medial left cerebellum with surrounding lucency, but lack of mass effect. The lack of mass effect is important and may indicate prior cystic encephalomalacia here with potential post-traumatic hemorrhage, although underlying neoplasm remains difficult to exclude here on metastatic or primary basis. IMPRESSION: 1. Neuro: Admitted with a new small left cerebellar hemorrhage, prior history of left middle cerebral artery stroke with right residual hemiparesis. Seen by Neurosurgery, no further recommendation. Seen by neurology consult. Blood pressure maintained in 140 to 160 range. Continue Tylenol for headache. 2. Pulmonary: No acute issues. 3. Cardiac: Telemetry with sinus rhythm. 4. Hematology: Leukocytosis trending down, reactive. Hemoglobin stable. Platelet count stable. No coagulopathy noted. 5. Renal. Hypokalemia being supplemented. Normal kidney function. 6. Endocrine: History of diabetes mellitus type 2, maintain sugar below 180 mg. Continue Levemir 30 units subcu bedtime and insulin lispro before meals and at bedtime. 7. Gastrointestinal: No acute issues. Continue deep venous thrombosis prophylaxis. Hold anticoagulation. Occupational therapy/physical therapy as some physical therapy evaluation for therapy. Joe Winters MD [facility] # [id number] MTDD
[2018-05-08] MEDS: Alum-Mag Hydrox-Simethicone Susp (30 mL) PO PRN (00:16)
[2018-05-08] MEDS: Insulin Lispro (humaLOG) 100 Units/ml Inj SC SCH ×7 (06:34→22:05)
[2018-05-08 07:15] LABS: HEMOGLOBIN 14.2 g/dL (12.0-16.0); MEAN CELL VOLUME 84.3 fl (81.0-99.0); MEAN CORPUSCULAR HEMOGLOBIN 29.4 pg (27.0-31.0); MEAN CORPUSCULAR HGB CONC 34.8 g/dL (33.0-37.0); RBC 4.83 Mil/uL (3.80-5.20); WHITE BLOOD COUNT 8.7 K/uL (4.8-10.8)
[2018-05-08 07:22] LABS: ALB/GLOB RATIO 1.1 (1.0-2.1); ALBUMIN 3.2 g/dL (3.5-5.0); ALT/SGPT 21 U/L (9-52); AST/SGOT 17 U/L (14-36); BLOOD UREA NITROGEN 19 mg/dl (7-17); GFR NON-AFRICAN AMERICAN > 60
[2018-05-08] MEDS: Pantoprazole 40 mg EC Tab PO SCH (08:59)
[2018-05-08] MEDS: Multivitamin With Minerals Tab PO SCH (08:59)
[2018-05-08] MEDS: Potassium Chloride 20 mEq/15 ml LIQ UD PO SCH (08:59)
--- NOTE | 2018-05-08 16:10 | PN ---
DATE: 05/08/2018 ENDO FOLLOWUP NOTE LOCATION: Room ICU. SUBJECTIVE: This is a 68-year-old female with recent uncontrolled type 2 insulin-requiring diabetes, now being followed closely for metabolic management. Her glycemic levels are fluctuating but much improved at this time, and the glucose values overnight have ranged from 142 to 215 mg/dL. LABORATORY DATA: Her latest chemistry showed a BUN of 19, sodium 141, potassium 3.4, chloride 104, CO2 28, glucose 146, and creatinine 0.5. At this time, we will continue the same basal and bolus insulin regimen and keep her on the Humalog given as 12 units subcu t.i.d. before meals as ordered. We will continue her Levemir given as 40 units subcu at bedtime daily as modified last night. We will continue the low-dose correction scale using Humalog insulin as given. We will obtain serial chemistries and supplement accordingly as needed. She also has ongoing neurological management and workup for recent cerebellar hemorrhage as noted. We will follow. Sangita Perez MD
[2018-05-08] MEDS: Insulin Detemir 100 Units/ml Inj SC SCH (22:03)
[2018-05-09] MEDS: Alum-Mag Hydrox-Simethicone Susp (30 mL) PO PRN (01:44)
--- NOTE | 2018-05-09 05:00 | PN ---
DATE: 05/08/2018 CRITICAL CARE PROGRESS NOTE LOCATION: The patient is in ICU, bed 422. TIME SPENT: 25 minutes. The patient is seen and evaluated at the bedside. Past medical, surgical, social, and family history reviewed. 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 CT showed small left cerebellar bleed. Overnight, normotensive, afebrile. Telemetry, sinus rhythm. This morning, alert and awake, out of bed to chair, There is some headache. No nausea, vomiting. No chest pain or palpitation. No abdominal discomfort. No diarrhea. No dysuria. Tolerating p.o. feeds. PHYSICAL EXAMINATION: VITAL SIGNS: Temperature 98.7, heart rate 91, blood pressure 145/77, mean arterial pressure 99, respiratory rate 20, saturation 97%. HEAD, EYES, EARS, NOSE, AND THROAT: Pupils reactive. Conjunctivae pink. Sclerae are white. NECK: Supple. Trachea central. CHEST: Bilateral breath sounds, clear to auscultation. HEART: Rhythm regular. S1, S2 normal. ABDOMEN: Bowel sounds present. Soft. Liver and spleen not palpable. Bladder not distended. EXTREMITIES: No clubbing or cyanosis. NEURO EXAMINATION: Left arm and left leg with normal strength, able to lift off gravity, reduced sensation on the left to touch. Right-sided arm is contracted with a strength 3/5. Right leg is rotated inward with contracture. SKIN: Without rash. CURRENT MEDICATIONS: Tylenol 650 every 4 hours p.r.n., Norvasc 10 mg p.o. daily, Lipitor 80 mg p.o. daily, Lotrimin 1% one application topically daily, glucagon 1 mg IM p.r.n. for hypoglycemia, Levemir 30 units subcu at bedtime, Humalog insulin 12 units subcu before meals and at bedtime, labetalol 20 mg IV every 6 hours p.r.n. for systolic pressure more than 180, multivitamin tablet daily, nitroglycerin 0.4 mg sublingual p.r.n., Protonix 40 daily, potassium chloride 20 mEq p.o. daily. LABORATORY DATA: WBC 8.7, hemoglobin 14.2, hematocrit 40.7, platelet count 189. PT 9.6, INR 0.9, PTT 30.9. SMA-7: Sodium 141, potassium 3.4, chloride 104, CO2 is 28, blood urea nitrogen 19, creatinine 0.5, random glucose 142, 278, calcium 9. Total bilirubin 0.7, AST 17, ALT 21, alkaline phosphatase 83, total protein 6.1, albumin 3.2. Urinalysis: 05/05/2018, bilirubin negative, rbc 116, wbc 5, moderate yeast. Microbiology: Nasal smear, MRSA negative. Repeat CT on 05/06/2018, small left cerebellar bleed unchanged. IMPRESSION: 1. Neurologic: Admitted with a new small left cerebellar hemorrhage, prior history of left middle cerebral artery stroke with right residual hemorrhage. Seen by Neurosurgery, no further recommendation. Neurology on board. Blood pressure maintained between 140 to 160. Continue Tylenol for headache. 2. Pulmonary: No acute issues. 3. Cardiac; Telemetry with sinus rhythm. No arrhythmias noted. 4. Hematology: Leukocytosis trending down, reactive. Hemoglobin stable. Platelet count stable. No coagulopathy noted. 5. Renal: Hypokalemia, being supplemented. Normal kidney function. 6. Endocrine: History of diabetes mellitus type 2. Maintain sugar below 180. Continue Levemir 30 units subcu at bedtime and insulin lispro before meals and bedtime. Endocrine input noted. 7. GI: No acute issues. 8. Continue deep venous thrombosis prophylaxis. Hold anticoagulation. 9. Occupational: Occupational Therapy, Physical Therapy as tolerated. The patient may be transferred to telemetry floor. Joe Winters MD
[2018-05-09 06:08] LABS: HEMOGLOBIN 13.5 g/dL (12.0-16.0); MEAN CELL VOLUME 85.3 fl (81.0-99.0); MEAN CORPUSCULAR HEMOGLOBIN 29.4 pg (27.0-31.0); MEAN CORPUSCULAR HGB CONC 34.5 g/dL (33.0-37.0); RBC 4.59 Mil/uL (3.80-5.20); RED CELL DISTRIBUTION WIDTH 14.4 % (11.5-14.5); WHITE BLOOD COUNT 9.7 K/uL (4.8-10.8)
[2018-05-09 06:43] LABS: BLOOD UREA NITROGEN 25 mg/dl (7-17); CALCIUM 9.4 mg/dL (8.4-10.2); GFR NON-AFRICAN AMERICAN > 60
[2018-05-09] MEDS: Insulin Lispro (humaLOG) 100 Units/ml Inj SC SCH ×6 (06:43→16:15)
[2018-05-09 07:49] VITALS: O2SAT 96
[2018-05-09] MEDS: Potassium Chloride 20 mEq/15 ml LIQ UD PO SCH (09:37)
[2018-05-09] MEDS: Pantoprazole 40 mg EC Tab PO SCH (09:38)
[2018-05-09] MEDS: Multivitamin With Minerals Tab PO SCH (09:38)
[2018-05-09 12:32] VITALS: BP 124/70; PULSE 19; RESP 22; TEMP 98
[2018-05-09] MEDS ORDERED: Insulin Detemir 100 Units/ml Inj SC SCH (22:00)
--- NOTE | 2018-05-09 22:25 | PN ---
DATE: 05/09/2018 LOCATION: Room 432, ICU. SUBJECTIVE: This is a 68-year-old female with recent uncontrolled type 2 insulin-requiring diabetes, presenting here with worsening extremity weakness and gait instability and is now being followed closely by Neurology and here in the ICU for closer hemodynamic monitoring and is also being followed closely for metabolic management. Her glycemic levels are fluctuating but improved, and the glucose values have ranged from 168-177 and 218 mg/dL. Her latest chemistry showed a BUN of 25, sodium 137, potassium 4.0, chloride 101, CO2 of 27, glucose 232, and creatinine 0.6. PLAN OF MANAGEMENT: At this time, we will continue the same prandial insulin given as Humalog at 12 units subcu t.i.d. before meals as ordered. We will titrate her basal insulin to a higher dosing of Levemir given as 44 units subcu at bedtime daily to start tonight. We will obtain serial chemistries and supplement accordingly as needed. We will follow. Sangita Perez MD
== END 2018-05-09 16:50 | DRG 65 ==
LOC: H.ER 11:08 → H.ERHOLD 14:24 → H.ICU/CCU 18:30
PROVIDERS: ADMIT Family Medicine; ATTEND Family Medicine
DX: I61.4 Nontraumatic intracerebral hemorrhage in cerebellum (principal); I69.351 Hemiplegia and hemiparesis following cerebral infarction affecting right dominant side; R29.6 Repeated falls; W06.XXXA Fall from bed, initial encounter; Z79.4 Long term (current) use of insulin; Y92.009 Unspecified place in unspecified non-institutional (private) residence as the place of occurrence of the external cause; Z79.899 Other long term (current) drug therapy; R00.0 Tachycardia, unspecified; R26.9 Unspecified abnormalities of gait and mobility; D72.829 Elevated white blood cell count, unspecified; E11.319 Type 2 diabetes mellitus with unspecified diabetic retinopathy without macular edema; E11.42 Type 2 diabetes mellitus with diabetic polyneuropathy; E11.65 Type 2 diabetes mellitus with hyperglycemia; E78.5 Hyperlipidemia, unspecified; E86.0 Dehydration; E87.6 Hypokalemia; F17.210 Nicotine dependence, cigarettes, uncomplicated; I10 Essential (primary) hypertension; I25.10 Atherosclerotic heart disease of native coronary artery without angina pectoris

== ENCOUNTER 2018-05-09 14:36 | Inpatient (IN) | payer MEDICARE, OTHER ==
[2018-05-09 14:49] VITALS: BMI 26.6
[2018-05-09] MEDS: Insulin Lispro (humaLOG) 100 Units/ml Inj SC SCH (21:00)
[2018-05-09] MEDS: Insulin Detemir 100 Units/ml Inj SC SCH (21:32)
[2018-05-10] MEDS: Pantoprazole 40 mg EC Tab PO SCH (06:29)
[2018-05-10] MEDS: Insulin Lispro (humaLOG) 100 Units/ml Inj SC SCH ×7 (06:30→21:00)
[2018-05-10] MEDS: Potassium Chloride 20 mEq/15 ml LIQ UD PO SCH (08:01)
[2018-05-10] MEDS: Multivitamin With Minerals Tab PO SCH (08:01)
--- NOTE | 2018-05-10 08:59 | CP.PCM.HP ---
History of Present Illness - History of Present Illness History of Present Illness: H&P from 05/05/18 HPI: 68 YO Female with PMHx of HTN, DM, CVA (x5, with residual R sided weakness) , new cerebellar hemorrhagic stroke is admitted to acute rehab for pt/ot and deconditioning. Pt doing well this AM. Denies headache, blurry vision, diplopia , chest pain, palpitations, dyspnea, n/v/d/c. DaughterPatrick [phone] PMD: [facility] PMHx: HTN, DM, CVA x 5 SurgHx: cholesectomy, SH: 50+ yrs smoking hx, current smoker, denies ETOH and illicit drug use Allergies: NKDA Present on Admission - Present on Admission Any Indicators Present on Admission: No Review of Systems - Constitutional Constitutional: absent: Chills, Fever - Cardiovascular Cardiovascular: absent: Chest Pain, Dyspnea - Respiratory Respiratory: absent: Cough, Dyspnea - Gastrointestinal Gastrointestinal: absent: Abdominal Pain - Genitourinary Genitourinary: absent: Dysuria - Musculoskeletal Musculoskeletal: Muscle Weakness (R sided ) - Neurological Neurological: absent: Dizziness, Headaches Past Patient History - Past Medical History & Family History Past Medical History?: Yes - Past Social History Smoking Status: Light Smoker < 10 Cigarettes Daily - CARDIAC Hx Hypercholesterolemia: Yes Hx Hypertension: Yes - PULMONARY Hx Respiratory Disorders: No - NEUROLOGICAL HX Cerebrovascular Accident: Yes Hx Dizziness: Yes - HEENT Hx HEENT Problems: No - RENAL Hx Chronic Kidney Disease: No - ENDOCRINE/METABOLIC Hx Diabetes Mellitus Type 2: Yes - HEMATOLOGICAL/ONCOLOGICAL Hx Blood Disorders: No - INTEGUMENTARY Hx Dermatological Problems: No - MUSCULOSKELETAL/RHEUMATOLOGICAL Hx Falls: Yes - GASTROINTESTINAL Hx Gastrointestinal Disorders: No - GENITOURINARY/GYNECOLOGICAL Hx Incontinence: Yes - PSYCHIATRIC Hx Depression: Yes Hx Substance Use: No - SURGICAL HISTORY Hx Cholecystectomy: Yes - ANESTHESIA Hx Anesthesia: Yes Hx Anesthesia Reactions: No Hx Malignant Hyperthermia: No Meds Allergies/Adverse Reactions: Allergies Allergy/AdvReac Type Severity Reaction Status Date / Time No Known Allergies Allergy Verified 05/09/18 14:48 Results - Vital Signs Recent Vital Signs: Last Vital Signs Temp 98 F 05/10/18 01:15 Pulse 81 05/10/18 01:15 Resp 20 05/10/18 01:15 BP 148/71 05/10/18 08:01 Pulse Ox 97 05/09/18 20:16 - Labs Labs: Laboratory Results - last 24 hr 05/09/18 05/10/18 20:48 06:26 POC Glucose (mg/dL) 166 H 170 H Assessment & Plan (1) Cerebellar hemorrhage Status: Acute (2) Uncontrolled diabetes mellitus Status: Chronic (3) Hypertension Status: Chronic - Assessment and Plan (Free Text) Assessment: Assessment/Plan: 68 YO Female with PMHx of HTN, DM, CVA (x5, with residual R sided weakness), new cerebellar hemorrhagic stroke is admitted to acute rehab for pt/ot and deconditioning. -plan as ordered -VS remain stable -cont Pt/Ot and rehab and planned -monitor for acute acute changes in mental status -endo, psych and neuro on board Pt seen and examined with Dr. Bangura
--- NOTE | 2018-05-10 16:43 | CP.PCM.CON ---
History of Present Illness - History of Present Illness History of Present Illness: 68 year female with CVA, HTN Dm, history of CVA Review of Systems - Musculoskeletal Musculoskeletal: Muscle Weakness Past Patient History - Past Medical History & Family History Past Medical History?: Yes - Past Social History Smoking Status: Light Smoker < 10 Cigarettes Daily - CARDIAC Hx Hypertension: Yes - PULMONARY Hx Respiratory Disorders: No - NEUROLOGICAL HX Cerebrovascular Accident: Yes - HEENT Hx HEENT Problems: No - RENAL Hx Chronic Kidney Disease: No - ENDOCRINE/METABOLIC Hx Diabetes Mellitus Type 2: Yes - HEMATOLOGICAL/ONCOLOGICAL Hx Blood Disorders: No - INTEGUMENTARY Hx Dermatological Problems: No - MUSCULOSKELETAL/RHEUMATOLOGICAL Hx Falls: Yes - GASTROINTESTINAL Hx Gastrointestinal Disorders: No - GENITOURINARY/GYNECOLOGICAL Hx Incontinence: Yes - PSYCHIATRIC Hx Depression: Yes Hx Substance Use: No - SURGICAL HISTORY Hx Cholecystectomy: Yes - ANESTHESIA Hx Anesthesia: Yes Hx Anesthesia Reactions: No Hx Malignant Hyperthermia: No Meds Allergies/Adverse Reactions: Allergies Allergy/AdvReac Type Severity Reaction Status Date / Time No Known Allergies Allergy Verified 05/09/18 14:48 - Medications Medications: Current Medications Acetaminophen (Tylenol 325mg Tab) 650 mg PO Q4 PRN PRN Reason: Pain scale 4-10 Last Admin: 05/10/18 12:29 Dose: 650 mg Al Hydrox/Mg Hydrox/Simethicone (Maalox Plus 30 Ml) 30 ml PO Q6 PRN PRN Reason: Indigestion / Heartburn Amlodipine Besylate (Norvasc) 10 mg PO DAILY [facility] Last Admin: 05/10/18 08:01 Dose: 10 mg Atorvastatin Calcium (Lipitor) 80 mg PO HS [facility] Insulin Detemir (Levemir) 44 units SC HS [facility] Last Admin: 05/09/18 21:32 Dose: 44 units Insulin Human Lispro (Humalog) 12 units SC AC [facility] Last Admin: 05/10/18 12:30 Dose: 12 units Insulin Human Lispro (Humalog) 0 units SC ACHS [facility] Last Admin: 05/10/18 12:36 Dose: Not Given Multivitamins/Minerals (Therapeutic-M Tab) 1 tab PO DAILY [facility] Last Admin: 05/10/18 08:01 Dose: 1 tab Nitroglycerin (Nitrostat Sl Tab) 0.4 mg SL Q5MIN PRN PRN Reason: chest pain Pantoprazole Sodium (Protonix Ec Tab) 40 mg PO DAILY@0630 [facility] Last Admin: 05/10/18 06:29 Dose: 40 mg Potassium Chloride (Potassium Chloride Oral Soln) 20 meq PO DAILY [facility] Last Admin: 05/10/18 08:01 Dose: 20 meq Physical Exam - Head Exam Head Exam: ATRAUMATIC, NORMAL INSPECTION, NORMOCEPHALIC - Eye Exam Eye Exam: EOMI, Normal appearance, PERRL Pupil Exam: NORMAL ACCOMODATION, PERRL - ENT Exam ENT Exam: Mucous Membranes Moist, Normal Exam - Neck Exam Neck exam: Positive for: Normal Inspection - Respiratory Exam Respiratory Exam: Clear to Auscultation Bilateral, NORMAL BREATHING PATTERN - Cardiovascular Exam Cardiovascular Exam: REGULAR RHYTHM - GI/Abdominal Exam GI & Abdominal Exam: Normal Bowel Sounds - Rectal Exam Rectal Exam: NORMAL INSPECTION - Exam External exam: NORMAL EXTERNAL EXAM - Extremities Exam Extremities exam: Positive for: normal inspection - Back Exam Back exam: NORMAL INSPECTION - Neurological Exam Neurological exam: Alert, CN II-XII Intact Additional comments: with left sided weakness - Psychiatric Exam Psychiatric exam: Normal Affect, Normal Mood - Skin Skin Exam: Dry, Intact Results - Vital Signs Recent Vital Signs: Last Vital Signs Temp 97.5 F L 05/10/18 10:00 Pulse 87 05/10/18 10:00 Resp 20 05/10/18 10:00 BP 142/80 05/10/18 10:00 Pulse Ox 97 05/10/18 10:00 - Labs Labs: Laboratory Results - last 24 hr 05/09/18 05/10/18 05/10/18 20:48 06:26 11:13 POC Glucose (mg/dL) 166 H 170 H 102 05/10/18 16:17 POC Glucose (mg/dL) 225 H Assessment & Plan (1) Cerebellar hemorrhage Assessment and Plan: plan for physical, occupational, rec and speech therapy for range of motion, strengthening, transfers and gait training . To write for overall plan of care Status: Acute (2) Dehydration Status: Acute (3) Hypertension Status: Chronic (4) Uncontrolled diabetes mellitus Status: Chronic
--- NOTE | 2018-05-10 16:51 | PCM.OPOC ---
Physiatry Overall Plan of Care - Overall Plan of Care Estimated Length of Stay in Weeks: 3 Rehab Impairment: Mobility, Gait, Cognition, Balance, Coordination Etiologic Diagnosis: Cerebrovascular Accident Rehab/Medical Prognosis: Fair - Anticipated Interventions Physical Therapy:: Yes Occupational Therapy:: Yes Speech Therapy:: Yes Recreational Therapy:: Yes - Therapy Goals Bed Mobility: Independent Ambulation: Supervision Functional Positional Changes:: Independent - Functional Outcomes Functional Outcomes: fair - Discharge Plan Identification of Barriers to Discharge: Cognition Discharge Destination: Home
--- NOTE | 2018-05-10 16:53 | CP.PCM.PN ---
Subjective - Date & Time of Evaluation Date of Evaluation: 05/10/18 Time of Evaluation: 15:00 - Subjective Subjective: no acute complaints at present Objective - Vital Signs/Intake and Output Vital Signs (last 24 hours): Temp Pulse Resp BP Pulse Ox 97.5 F L 91 H 20 142/80 96 05/10/18 10:00 05/10/18 11:34 05/10/18 10:00 05/10/18 10:00 05/10/18 11:34 - Medications Medications: Current Medications Acetaminophen (Tylenol 325mg Tab) 650 mg PO Q4 PRN PRN Reason: Pain scale 4-10 Last Admin: 05/10/18 12:29 Dose: 650 mg Al Hydrox/Mg Hydrox/Simethicone (Maalox Plus 30 Ml) 30 ml PO Q6 PRN PRN Reason: Indigestion / Heartburn Amlodipine Besylate (Norvasc) 10 mg PO DAILY [facility] Last Admin: 05/10/18 08:01 Dose: 10 mg Atorvastatin Calcium (Lipitor) 80 mg PO HS [facility] Insulin Detemir (Levemir) 44 units SC HS [facility] Last Admin: 05/09/18 21:32 Dose: 44 units Insulin Human Lispro (Humalog) 12 units SC AC [facility] Last Admin: 05/10/18 12:30 Dose: 12 units Insulin Human Lispro (Humalog) 0 units SC ACHS [facility] Last Admin: 05/10/18 12:36 Dose: Not Given Multivitamins/Minerals (Therapeutic-M Tab) 1 tab PO DAILY [facility] Last Admin: 05/10/18 08:01 Dose: 1 tab Nitroglycerin (Nitrostat Sl Tab) 0.4 mg SL Q5MIN PRN PRN Reason: chest pain Pantoprazole Sodium (Protonix Ec Tab) 40 mg PO DAILY@0630 [facility] Last Admin: 05/10/18 06:29 Dose: 40 mg Potassium Chloride (Potassium Chloride Oral Soln) 20 meq PO DAILY [facility] Last Admin: 05/10/18 08:01 Dose: 20 meq - Head Exam Head Exam: ATRAUMATIC, NORMAL INSPECTION, NORMOCEPHALIC - Eye Exam Eye Exam: EOMI, Normal appearance, PERRL Pupil Exam: NORMAL ACCOMODATION, PERRL - ENT Exam ENT Exam: Mucous Membranes Moist, Normal Exam - Neck Exam Neck Exam: Normal Inspection - Respiratory Exam Respiratory Exam: Clear to Ausculation Bilateral, NORMAL BREATHING PATTERN - Cardiovascular Exam Cardiovascular Exam: REGULAR RHYTHM - GI/Abdominal Exam GI & Abdominal Exam: Soft, Normal Bowel Sounds - Rectal Exam Rectal Exam: NORMAL INSPECTION - Exam External exam: NORMAL EXTERNAL EXAM - Extremities Exam Extremities Exam: Full ROM, Normal Capillary Refill, Normal Inspection - Back Exam Back Exam: NORMAL INSPECTION - Neurological Exam Neurological Exam: Alert, Awake Neuro motor strength exam: Left Upper Extremity: 3, Left Lower Extremity: 3 - Psychiatric Exam Psychiatric exam: Normal Affect, Normal Mood - Skin Skin Exam: Dry, Intact, Normal Color Assessment and Plan (1) Cerebellar hemorrhage Assessment & Plan: plan for physical, occupational, rec and speech therapy for team conference Status: Acute (2) Dehydration Status: Acute (3) Hypertension Status: Chronic (4) Uncontrolled diabetes mellitus Status: Chronic
--- NOTE | 2018-05-10 16:55 | CP.PCM.CON ---
History of Present Illness - History of Present Illness History of Present Illness: Neurology Consultation Note: Mrs. 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 According to the patient, she has had several other bleeds in the past and is on Lexapro. She is now in acute rehab for recovery and neurology is following her for continuity of care. She had no new complaints and is doing well in rehab. She complained of insomnia and having mood changes since being taken off of Lexapro. Review of Systems - Review of Systems All systems: reviewed and no additional remarkable complaints except Past Patient History - Past Medical History & Family History Past Medical History?: Yes - Past Social History Smoking Status: Light Smoker < 10 Cigarettes Daily - CARDIAC Hx Hypertension: Yes - PULMONARY Hx Respiratory Disorders: No - NEUROLOGICAL HX Cerebrovascular Accident: Yes - HEENT Hx HEENT Problems: No - RENAL Hx Chronic Kidney Disease: No - ENDOCRINE/METABOLIC Hx Diabetes Mellitus Type 2: Yes - HEMATOLOGICAL/ONCOLOGICAL Hx Blood Disorders: No - INTEGUMENTARY Hx Dermatological Problems: No - MUSCULOSKELETAL/RHEUMATOLOGICAL Hx Falls: Yes - GASTROINTESTINAL Hx Gastrointestinal Disorders: No - GENITOURINARY/GYNECOLOGICAL Hx Incontinence: Yes - PSYCHIATRIC Hx Depression: Yes Hx Substance Use: No - SURGICAL HISTORY Hx Cholecystectomy: Yes - ANESTHESIA Hx Anesthesia: Yes Hx Anesthesia Reactions: No Hx Malignant Hyperthermia: No Meds Allergies/Adverse Reactions: Allergies Allergy/AdvReac Type Severity Reaction Status Date / Time No Known Allergies Allergy Verified 05/09/18 14:48 - Medications Medications: Current Medications Acetaminophen (Tylenol 325mg Tab) 650 mg PO Q4 PRN PRN Reason: Pain scale 4-10 Last Admin: 05/10/18 12:29 Dose: 650 mg Al Hydrox/Mg Hydrox/Simethicone (Maalox Plus 30 Ml) 30 ml PO Q6 PRN PRN Reason: Indigestion / Heartburn Amlodipine Besylate (Norvasc) 10 mg PO DAILY [facility] Last Admin: 05/10/18 08:01 Dose: 10 mg Atorvastatin Calcium (Lipitor) 80 mg PO HS [facility] Insulin Detemir (Levemir) 44 units SC HS [facility] Last Admin: 05/09/18 21:32 Dose: 44 units Insulin Human Lispro (Humalog) 12 units SC AC [facility] Last Admin: 05/10/18 12:30 Dose: 12 units Insulin Human Lispro (Humalog) 0 units SC ACHS [facility] Last Admin: 05/10/18 12:36 Dose: Not Given Multivitamins/Minerals (Therapeutic-M Tab) 1 tab PO DAILY [facility] Last Admin: 05/10/18 08:01 Dose: 1 tab Nitroglycerin (Nitrostat Sl Tab) 0.4 mg SL Q5MIN PRN PRN Reason: chest pain Pantoprazole Sodium (Protonix Ec Tab) 40 mg PO DAILY@0630 [facility] Last Admin: 05/10/18 06:29 Dose: 40 mg Potassium Chloride (Potassium Chloride Oral Soln) 20 meq PO DAILY [facility] Last Admin: 05/10/18 08:01 Dose: 20 meq Physical Exam - Neurological Exam Neurological exam: Abnormal Gait, Alert, CN II-XII Intact, Oriented x3 Additional comments: Brisk reflexes on the right, FTN abnormal on the right, Strength is diminished on the right as compared with the left. PLantar responses were upgoing bilaterally. Results - Vital Signs Recent Vital Signs: Last Vital Signs Temp 97.5 F L 05/10/18 10:00 Pulse 91 H 05/10/18 11:34 Resp 20 05/10/18 10:00 BP 142/80 05/10/18 10:00 Pulse Ox 96 05/10/18 11:34 - Labs Labs: Laboratory Results - last 24 hr 05/09/18 05/10/18 05/10/18 20:48 06:26 11:13 POC Glucose (mg/dL) 166 H 170 H 102 05/10/18 16:17 POC Glucose (mg/dL) 225 H Assessment & Plan - Assessment and Plan (Free Text) Assessment: S/P cerebellar hemorrhage. Clinically stable. Plan: Continue current medications to control risk factors for stroke and follow PT/ OT treatment plan. Will start Depakote QHS which may help with sleep and mood changes. Neurology will follow. Thank you.
[2018-05-10] MEDS: Insulin Detemir 100 Units/ml Inj SC SCH (21:43)
[2018-05-11] MEDS: Pantoprazole 40 mg EC Tab PO SCH (06:25)
[2018-05-11 06:26] LABS: HEMOGLOBIN 14.4 g/dL (12.0-16.0); MEAN CELL VOLUME 86.6 fl (81.0-99.0); MEAN CORPUSCULAR HEMOGLOBIN 29.2 pg (27.0-31.0); MEAN CORPUSCULAR HGB CONC 33.7 g/dL (33.0-37.0); RBC 4.95 Mil/uL (3.80-5.20); RED CELL DISTRIBUTION WIDTH 14.9 % (11.5-14.5); WHITE BLOOD COUNT 8.8 K/uL (4.8-10.8)
[2018-05-11] MEDS: Insulin Lispro (humaLOG) 100 Units/ml Inj SC SCH ×7 (06:30→22:18)
[2018-05-11 07:00] LABS: ALB/GLOB RATIO 1.2 (1.0-2.1); ALBUMIN 3.6 g/dL (3.5-5.0); ALT/SGPT 22 U/L (9-52); AST/SGOT 35 U/L (14-36); BLOOD UREA NITROGEN 31 mg/dl (7-17); CALCIUM 9.7 mg/dL (8.4-10.2); GFR AFRICAN-AMERICAN > 60; GFR NON-AFRICAN AMERICAN > 60
[2018-05-11] MEDS: Potassium Chloride 20 mEq/15 ml LIQ UD PO SCH (08:47)
[2018-05-11] MEDS: Multivitamin With Minerals Tab PO SCH (08:47)
--- NOTE | 2018-05-11 08:49 | PN ---
Copied To: Sangita Perez MD Attending MD: Sangita Perez MD DATE: 05/10/2018 ENDO FOLLOWUP NOTE LOCATION: In room 621. SUBJECTIVE: This is a 68-year-old female with recent uncontrolled type 2 insulin-requiring diabetes, presenting here with cerebellar hemorrhage and worsening right-sided weakness, and is now undergoing acute rehabilitation therapy and is also being followed closely now for metabolic management. Her glycemic levels are fluctuating, but much improved at this time and the glucose values have ranged from 102 to 166 and 170 mg/dL. LABORATORY DATA: Her latest chemistry showed a BUN of 25, sodium 137, potassium 4.0, chloride 101, CO2 of 27, glucose 232, and creatinine 0.6. Her calcium level is 9.4. ASSESSMENT: This is a 68-year-old female with uncontrolled and decompensated type 2 insulin-requiring diabetes, presenting here with hyperosmolar hyperglycemic state and dehydration and has since then improved clinically and metabolically as noted thereof. She also has significant history of multiple recurrences of acute cerebrovascular events with a recent cerebellar hemorrhage as noted thereof. PLAN OF MANAGEMENT: We will continue the modified basal and bolus insulin regimen to optimize metabolic control. We will continue her Humalog at 12 units subcutaneous t.i.d. before meals to start today. We will also modify her basal insulin to a higher dosing of Levemir given as 44 units subcutaneous at bedtime daily as given. We will continue the modified low-dose correction scale using Humalog insulin as ordered. We will obtain serial chemistries and supplement accordingly as needed. We will follow. Sangita Perez MD
--- NOTE | 2018-05-11 12:22 | PSY.TMCNF ---
Nursing - Vital Signs Vital Signs (Last 8 hours): Vital Signs 05/11/18 05/11/18 05/11/18 08:39 08:48 08:54 Temperature 98.1 F Pulse Rate 87 84 Respiratory 19 Rate Blood Pressure 137/71 137/71 O2 Sat by Pulse 98 99 Oximetry 05/11/18 12:06 Temperature 98.1 F Pulse Rate 84 Respiratory 19 Rate Blood Pressure 137/71 O2 Sat by Pulse Oximetry Pain: 0 - Precautions: Precautions: Fall Prevention - Medications/Other Issues Comment: To follow as per nutrition protocol - Consults Comment: Dr. Batista. Dr. Arroyo - Toileting Toileting: Contact Guard - Bladder Management Bladder Pattern: Normal Voiding Method: Toilet Bladder Management: Supervision Frequency of Accidents: 0 - Bowel Management Bowel Pattern: Normal Bowel Management: Supervision Frequency of Accidents: 0 - Transfers Transfers: Minimal Assistance - ADL's ADL's: Minimal Assistance - Patient/Family Teaching Comments: Care post CVA and safety precautions - Goals/Time Frame Comments: Per multidisciplinary care plan - Provider Provider: Caroline ESTRADAN RN CRRN Physical Therapy - Bed Mobility Bed Mobility: Verbal Cues, Minimal Assistance - Transfers Wheelchair to Mat: Verbal Cues, Minimal Assistance Sit to Stand: Verbal Cues, Contact Guard - Ambulation Level of Assistance: Verbal Cues, Contact Guard Distance (ft.): 75 Assistive Devices: Rolling Walker - Stair Negotiation Stairs: Level of Assistance: Moderate Assistance Number of Stairs: 3 Handrails: Bilateral - Standing Balance Static Stand: Contact Guard Assist Dynamic Stand: Minimal Assistance - Pain Pain (assessed during therapy session): 0 - Insight/Carryover Insight/Carryover: Good - Patient/Family Education Comment: CVA recovery, safety - Assessment/Plan Assessment: Pt is s/p L cereballar hemorrhage; presents with impaired RLE strength, balance, and endurance. Pt currently requires min A for bed mobilty, CGA/min A for transfers, CGA for gait with RW,, mod A for stair negotiation. Pt will benefit from skilled PT interventions to address deficits, reduce fall risk , and maximize functional independence. Pt has supportive children that live in area as well as [employer] 28 hours/week. D/c home is likely recommendation. - Goals Timeframe: 2 weeks Goals: Sit < > supine mod I. SIt < > stand mod I. Pt will ambulate 150 ft with RW mod I. Pt will ascend/descend flight of stairs with handrails and supervision. - Provider Therapist: Mena Singh PT DPT License Number: [id number] Occupational Therapy - Arousal/Attention/Orientation Patient Orientation: Person, Place, Time, Appropriate to Age, Appropriate to Situation - ADL/IADL Self Feeding: Supervision, Verbal Cues, Set-up Help Grooming: Supervision, Set-up Help, Minimal Assistance Dressing-Upper Extremity: Supervision, Verbal Cues, Set-up Help Dressing-Lower Extremity: Supervision, Verbal Cues, Set-up Help, Minimal Assistance Comment: bathing TBA - Sitting Balance Static Sitting: Supervision Dynamic Sitting: Requires supervision, Contact Guard Assist - Transfers Wheelchair to Bed Transfers: Minimal Assistance Toilet Transfers: Minimal Assistance Comment: shower transfer tba - Wheelchair Management Level of Assistance: Supervision, Verbal Cues Distance (ft.): 75 - Upper Extremity Status Right Upper Extremity Comment: R shoulder PROM WFLs. AROM R shoulder 60 degrees. R hand: synergistic movement patterns Left Upper Extremity Comment: WFL - Pain Pain (assessed during therapy session): 0 - Insight/Carryover Insight/Carryover: Good - Patient/Family Education Comment: CVA recovery, safety - Assessment/Plan Assessment: Pt is s/p L cereballar hemorrhage; presents with impaired RLE strength, balance, and endurance. Pt currently requires min A for bed mobilty, CGA/min A for transfers, CGA for gait with RW,, mod A for stair negotiation. Pt will benefit from skilled PT interventions to address deficits, reduce fall risk , and maximize functional independence. Pt has supportive children that live in [facility] as well as [facility] 28 hours/week. D/c home is likely recommendation. - Goals Timeframe: 2 weeks Goals: Sit < > supine mod I. SIt < > stand mod I. Pt will ambulate 150 ft with RW mod I. Pt will ascend/descend flight of stairs with handrails and supervision. - Provider Therapist: TRIPP Gorman License Number: [id number] Speech Therapy - Consult Information Patient on Program: Yes Medical Diagnosis: CVA Treatment Diagnosis: mild cognitive deficits - Assessment Memory Impairment: Mild - Plan Assessment: Pt is s/p L cereballar hemorrhage; presents with impaired RLE strength, balance, and endurance. Pt currently requires min A for bed mobilty, CGA/min A for transfers, CGA for gait with RW,, mod A for stair negotiation. Pt will benefit from skilled PT interventions to address deficits, reduce fall risk , and maximize functional independence. Pt has supportive children that live in area as well as [employer] 28 hours/week. D/c home is likely recommendation. - Provider Therapist: Rosalina Desai License Number: [id number] Recreational Therapy - Participation Participation: Participates in Individual and/or Group Sessions - Attendance Attendance: 3-5 times per week - Activities Leisure Activities: Crafts - Socialization Level of Socialization: Initiates/interacts freely with care givers and peer - Assessment Assessment/Plan: Pt is s/p L cereballar hemorrhage; presents with impaired RLE strength, balance, and endurance. Pt currently requires min A for bed mobilty, CGA/min A for transfers, CGA for gait with RW,, mod A for stair negotiation. Pt will benefit from skilled PT interventions to address deficits, reduce fall risk , and maximize functional independence. Pt has supportive children that live in area as well as [employer] 28 hours/week. D/c home is likely recommendation. - Provider Therapist: Simona Randle, [id number] #[id number] Nutrition - Current Diet Current Diet/ Supplement/ Feedings: Moderate consistent CHO 2 gram Na advanced bite size thin liquids - Appetite Percent Meal Consumed: 50-74% - Comments Comments: Care post CVA and safety precautions - Assessment/Goals/Time Frame Assessment/Goals/Time Frame: To follow as per nutrition protocol - Provider Provider: Carisa Montenegro RD Case Management - Discharge Plan Discharge Plan: Home with significant other/family
--- NOTE | 2018-05-11 13:15 | CP.PCM.PN ---
Subjective - Date & Time of Evaluation Date of Evaluation: 05/11/18 Time of Evaluation: 09:00 - Subjective Subjective: no acute complaints of any pain Objective - Vital Signs/Intake and Output Vital Signs (last 24 hours): Temp Pulse Resp BP Pulse Ox 98.1 F 84 19 137/71 99 05/11/18 12:06 05/11/18 12:06 05/11/18 12:06 05/11/18 12:06 05/11/18 08:54 - Medications Medications: Current Medications Acetaminophen (Tylenol 325mg Tab) 650 mg PO Q4 PRN PRN Reason: Pain scale 4-10 Al Hydrox/Mg Hydrox/Simethicone (Maalox Plus 30 Ml) 30 ml PO Q6 PRN PRN Reason: Indigestion / Heartburn Amlodipine Besylate (Norvasc) 10 mg PO DAILY [facility] Last Admin: 05/11/18 08:48 Dose: 10 mg Atorvastatin Calcium (Lipitor) 80 mg PO HS [facility] Last Admin: 05/10/18 21:02 Dose: 80 mg Insulin Detemir (Levemir) 44 units SC HS [facility] Last Admin: 05/10/18 21:43 Dose: 44 units Insulin Human Lispro (Humalog) 12 units SC AC [facility] Last Admin: 05/11/18 12:20 Dose: 12 units Insulin Human Lispro (Humalog) 0 units SC ACHS [facility] Last Admin: 05/11/18 12:31 Dose: Not Given Multivitamins/Minerals (Therapeutic-M Tab) 1 tab PO DAILY [facility] Last Admin: 05/11/18 08:47 Dose: 1 tab Nitroglycerin (Nitrostat Sl Tab) 0.4 mg SL Q5MIN PRN PRN Reason: chest pain Pantoprazole Sodium (Protonix Ec Tab) 40 mg PO DAILY@0630 [facility] Last Admin: 05/11/18 06:25 Dose: 40 mg Potassium Chloride (Potassium Chloride Oral Soln) 20 meq PO DAILY [facility] Last Admin: 05/11/18 08:47 Dose: 20 meq Valproate Sodium (Depakene Cap) 500 mg PO DAILY@2100 [facility] - Labs Labs: 05/11/18 05:15 05/11/18 05:15 - Head Exam Head Exam: ATRAUMATIC, NORMAL INSPECTION, NORMOCEPHALIC - Eye Exam Eye Exam: EOMI, Normal appearance, PERRL Pupil Exam: NORMAL ACCOMODATION - ENT Exam ENT Exam: Mucous Membranes Moist, Normal Exam - Neck Exam Neck Exam: Full ROM, Normal Inspection - Respiratory Exam Respiratory Exam: Clear to Ausculation Bilateral, NORMAL BREATHING PATTERN - Cardiovascular Exam Cardiovascular Exam: REGULAR RHYTHM - GI/Abdominal Exam GI & Abdominal Exam: Soft, Normal Bowel Sounds - Rectal Exam Rectal Exam: NORMAL INSPECTION - Exam External exam: NORMAL EXTERNAL EXAM - Extremities Exam Extremities Exam: Full ROM, Normal Capillary Refill, Normal Inspection - Back Exam Back Exam: NORMAL INSPECTION - Neurological Exam Neurological Exam: Alert, Awake Neuro motor strength exam: Left Upper Extremity: 3, Right Upper Extremity: 3, Left Lower Extremity: 3, Right Lower Extremity: 2/1 - Psychiatric Exam Psychiatric exam: Normal Affect, Normal Mood - Skin Skin Exam: Dry, Intact, Normal Color Assessment and Plan (1) Cerebellar hemorrhage Assessment & Plan: staut post Pt, ot rec and st team conference no Dc date foolowed up by neurology on depakote Status: Acute (2) Dehydration Status: Acute (3) Hypertension Status: Chronic (4) Uncontrolled diabetes mellitus Status: Chronic
[2018-05-11] MEDS: Insulin Detemir 100 Units/ml Inj SC SCH (22:09)
[2018-05-12] MEDS: Pantoprazole 40 mg EC Tab PO SCH (06:47)
[2018-05-12] MEDS: Insulin Lispro (humaLOG) 100 Units/ml Inj SC SCH ×7 (06:52→22:12)
[2018-05-12] MEDS: Potassium Chloride 20 mEq/15 ml LIQ UD PO SCH (08:11)
[2018-05-12] MEDS: Multivitamin With Minerals Tab PO SCH (08:12)
--- NOTE | 2018-05-12 08:25 | PN ---
Copied To: Sangita Perez MD Attending MD: Sangita Perez MD DATE: 05/11/2018 ENDO FOLLOWUP NOTE LOCATION: Room 621. SUBJECTIVE: This is a 68-year-old female with recent uncontrolled type 2 insulin-requiring diabetes, now being followed closely for metabolic management. She is undergoing acute rehabilitation therapy following a recent cerebellar hemorrhagic stroke and is also being followed closely for metabolic management. Her glycemic levels are fluctuating but much improved at this time, and the glucose values have ranged from 108 to 149 and 184 mg/dL. LABORATORY DATA: Her latest chemistries showed a BUN of 31, sodium 139, potassium 4.4, chloride 101, CO2 of 26, glucose 208, and creatinine 0.7. ASSESSMENT AND PLAN: So, at this time, we will continue the same basal and bolus insulin regimen as given with Humalog given as 12 units subcu three times a day before meals as ordered. We will also continue the basal insulin given as Levemir at 44 units subcutaneously at bedtime daily as given. We will continue the low-dose correction scale using Humalog insulin as ordered. We will obtain serial chemistries and supplement accordingly as needed. We will follow. Sangita Perez MD
[2018-05-12] MEDS: Insulin Detemir 100 Units/ml Inj SC SCH (22:10)
--- NOTE | 2018-05-12 22:52 | PN ---
Copied To: Sangita Perez MD Attending MD: Sangita Perez MD DATE: 05/12/2018 Room: 621 SUBJECTIVE: This is a 68-year-old female with recent uncontrolled type 2 insulin-requiring diabetes, now undergoing acute rehabilitation treatment for a recent cerebellar hemorrhagic stroke as noted thereof. Her glycemic levels are fluctuating but much improved at this time, and the glucose values today have ranged from 161 to 185 mg/dL. LABORATORY DATA: Her latest chemistry showed a BUN of 31, sodium 139, potassium 4.4, chloride 101, CO2 of 26, glucose 208, and creatinine 0.7. ASSESSMENT AND PLAN: So, at this time, we will continue the same basal and bolus insulin regimen to allow for dose equilibration and keep her on the Levemir given as 44 units subcu at bedtime daily as given. We will also continue the Humalog given as 12 units subcu three times a day before meals as ordered. We will obtain serial chemistries and supplement accordingly as needed. We will follow. Sangita Perez MD
[2018-05-13] MEDS: Pantoprazole 40 mg EC Tab PO SCH (07:04)
[2018-05-13] MEDS: Insulin Lispro (humaLOG) 100 Units/ml Inj SC SCH ×5 (07:08→21:47)
--- NOTE | 2018-05-13 08:04 | CP.PCM.CON ---
History of Present Illness - History of Present Illness History of Present Illness: Pt is a 68 year old female admitted to [facility] and referred to the marketing writer for evaluation (7:20-7:50). Medical history postive for "bleed." Pt reported previous "Bleed", HTN and DM. See medical record for complete medical history and medications. she also reported a history of depression with Lexapro prescribed by her PCP. Social History: Pt lives in a friend's home- with multiple stairs. Pt had four children, 1 "was killed." She reported little family support from [facility] remaining children- 1 dx with Bipolar disorder as was her X . Pt has 7 grandchildren. 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 No university education. Psych: pt reported depression since her daughter's andn other family tensions. She denied formal psychiatric/ psychological services. Pt negative for a history of alc/sub abuse. Pt spoke of moving out of state following her duaghter's - searching for an improved life. She spoke of her current tensions with her living situation and isolation "I can not get out." Sources of satisfaction discussed. MSE: pt alert, oriented x3, relevant/coherent, no psychosis, affect constricted , mood depressed, no si no hi ideation. Plan: Continued Sup therapy Dx: Depression Past Patient History - Past Medical History & Family History Past Medical History?: Yes - Past Social History Smoking Status: Light Smoker < 10 Cigarettes Daily - CARDIAC Hx Hypertension: Yes - PULMONARY Hx Respiratory Disorders: No - NEUROLOGICAL HX Cerebrovascular Accident: Yes - HEENT Hx HEENT Problems: No - RENAL Hx Chronic Kidney Disease: No - ENDOCRINE/METABOLIC Hx Diabetes Mellitus Type 2: Yes - HEMATOLOGICAL/ONCOLOGICAL Hx Blood Disorders: No - INTEGUMENTARY Hx Dermatological Problems: No - MUSCULOSKELETAL/RHEUMATOLOGICAL Hx Falls: Yes - GASTROINTESTINAL Hx Gastrointestinal Disorders: No - GENITOURINARY/GYNECOLOGICAL Hx Incontinence: Yes - PSYCHIATRIC Hx Depression: Yes Hx Substance Use: No - SURGICAL HISTORY Hx Cholecystectomy: Yes - ANESTHESIA Hx Anesthesia: Yes Hx Anesthesia Reactions: No Hx Malignant Hyperthermia: No Meds Allergies/Adverse Reactions: Allergies Allergy/AdvReac Type Severity Reaction Status Date / Time No Known Allergies Allergy Verified 05/09/18 14:48 - Medications Medications: Current Medications Acetaminophen (Tylenol 325mg Tab) 650 mg PO Q4 PRN PRN Reason: Pain scale 4-10 Last Admin: 05/12/18 23:14 Dose: 650 mg Al Hydrox/Mg Hydrox/Simethicone (Maalox Plus 30 Ml) 30 ml PO Q6 PRN PRN Reason: Indigestion / Heartburn Amlodipine Besylate (Norvasc) 10 mg PO DAILY [facility] Last Admin: 05/12/18 08:11 Dose: 10 mg Atorvastatin Calcium (Lipitor) 80 mg PO HS [facility] Last Admin: 05/12/18 21:57 Dose: 80 mg Insulin Detemir (Levemir) 44 units SC HS [facility] Last Admin: 05/12/18 22:10 Dose: 44 units Insulin Human Lispro (Humalog) 12 units SC AC [facility] Last Admin: 05/12/18 17:09 Dose: 12 units Insulin Human Lispro (Humalog) 0 units SC ACHS [facility] Last Admin: 05/13/18 07:08 Dose: Not Given Multivitamins/Minerals (Therapeutic-M Tab) 1 tab PO DAILY [facility] Last Admin: 05/12/18 08:12 Dose: 1 tab Nitroglycerin (Nitrostat Sl Tab) 0.4 mg SL Q5MIN PRN PRN Reason: chest pain Pantoprazole Sodium (Protonix Ec Tab) 40 mg PO DAILY@0630 [facility] Last Admin: 05/13/18 07:04 Dose: 40 mg Valproate Sodium (Depakene Cap) 500 mg PO DAILY@2100 [facility] Last Admin: 05/12/18 21:57 Dose: 500 mg Results - Vital Signs Recent Vital Signs: Last Vital Signs Temp 97.4 F L 05/12/18 20:00 Pulse 89 05/12/18 20:00 Resp 20 05/12/18 20:00 BP 121/64 05/12/18 20:00 Pulse Ox 98 05/12/18 20:00 - Labs Result Diagrams: 05/11/18 05:15 05/11/18 05:15 Labs: Laboratory Results - last 24 hr 05/12/18 05/12/18 05/12/18 06:50 11:48 16:13 POC Glucose (mg/dL) 185 H 161 H 206 H 05/12/18 05/13/18 20:05 07:06 POC Glucose (mg/dL) 229 H 166 H
[2018-05-13] MEDS: Multivitamin With Minerals Tab PO SCH (08:31)
--- NOTE | 2018-05-13 09:34 | CP.PCM.PN ---
Subjective - Date & Time of Evaluation Date of Evaluation: 05/11/18 Time of Evaluation: 10:00 - Subjective Subjective: Patient remains stable. Noted elevated FBS Has no chest pain or SOB Doing well with PT. Objective - Vital Signs/Intake and Output Vital Signs (last 24 hours): Temp Pulse Resp BP Pulse Ox 97.6 F 80 19 136/71 97 05/13/18 08:10 05/13/18 08:30 05/13/18 08:10 05/13/18 08:30 05/13/18 08:10 - Medications Medications: Current Medications Acetaminophen (Tylenol 325mg Tab) 650 mg PO Q4 PRN PRN Reason: Pain scale 4-10 Last Admin: 05/12/18 23:14 Dose: 650 mg Al Hydrox/Mg Hydrox/Simethicone (Maalox Plus 30 Ml) 30 ml PO Q6 PRN PRN Reason: Indigestion / Heartburn Amlodipine Besylate (Norvasc) 10 mg PO DAILY [facility] Last Admin: 05/13/18 08:30 Dose: 10 mg Atorvastatin Calcium (Lipitor) 80 mg PO HS [facility] Last Admin: 05/12/18 21:57 Dose: 80 mg Insulin Detemir (Levemir) 44 units SC HS [facility] Last Admin: 05/12/18 22:10 Dose: 44 units Insulin Human Lispro (Humalog) 12 units SC AC [facility] Last Admin: 05/13/18 08:28 Dose: 12 units Insulin Human Lispro (Humalog) 0 units SC ACHS [facility] Last Admin: 05/13/18 07:08 Dose: Not Given Multivitamins/Minerals (Therapeutic-M Tab) 1 tab PO DAILY [facility] Last Admin: 05/13/18 08:31 Dose: 1 tab Nitroglycerin (Nitrostat Sl Tab) 0.4 mg SL Q5MIN PRN PRN Reason: chest pain Pantoprazole Sodium (Protonix Ec Tab) 40 mg PO DAILY@0630 [facility] Last Admin: 05/13/18 07:04 Dose: 40 mg Valproate Sodium (Depakene Cap) 500 mg PO DAILY@2100 [facility] Last Admin: 05/12/18 21:57 Dose: 500 mg - Labs Labs: 05/11/18 05:15 05/11/18 05:15 - Head Exam Head Exam: NORMAL INSPECTION - Eye Exam Eye Exam: Normal appearance - ENT Exam ENT Exam: Mucous Membranes Moist - Respiratory Exam Respiratory Exam: Clear to Ausculation Bilateral - Cardiovascular Exam Cardiovascular Exam: REGULAR RHYTHM - GI/Abdominal Exam GI & Abdominal Exam: Normal Bowel Sounds - Neurological Exam Neurological Exam: CN II-XII Intact, Oriented x3 Assessment and Plan (1) Gait abnormality Status: Acute (2) Cerebellar hemorrhage Status: Acute (3) Hypertension Status: Chronic (4) Uncontrolled diabetes mellitus Status: Chronic - Assessment and Plan (Free Text) Plan: Cont meds Cont tx phys therapy adjust meds recheck labs
--- NOTE | 2018-05-13 09:34 | CP.PCM.PN ---
Subjective - Date & Time of Evaluation Date of Evaluation: 05/12/18 Time of Evaluation: 10:30 - Subjective Subjective: Patient continues to have elevated FBS A1c last week was 15. Has no fever Doing well with PT Objective - Vital Signs/Intake and Output Vital Signs (last 24 hours): Temp Pulse Resp BP Pulse Ox 97.6 F 80 19 136/71 97 05/13/18 08:10 05/13/18 08:30 05/13/18 08:10 05/13/18 08:30 05/13/18 08:10 - Medications Medications: Current Medications Acetaminophen (Tylenol 325mg Tab) 650 mg PO Q4 PRN PRN Reason: Pain scale 4-10 Last Admin: 05/12/18 23:14 Dose: 650 mg Al Hydrox/Mg Hydrox/Simethicone (Maalox Plus 30 Ml) 30 ml PO Q6 PRN PRN Reason: Indigestion / Heartburn Amlodipine Besylate (Norvasc) 10 mg PO DAILY [facility] Last Admin: 05/13/18 08:30 Dose: 10 mg Atorvastatin Calcium (Lipitor) 80 mg PO HS [facility] Last Admin: 05/12/18 21:57 Dose: 80 mg Insulin Detemir (Levemir) 44 units SC HS [facility] Last Admin: 05/12/18 22:10 Dose: 44 units Insulin Human Lispro (Humalog) 12 units SC AC [facility] Last Admin: 05/13/18 08:28 Dose: 12 units Insulin Human Lispro (Humalog) 0 units SC ACHS [facility] Last Admin: 05/13/18 07:08 Dose: Not Given Multivitamins/Minerals (Therapeutic-M Tab) 1 tab PO DAILY [facility] Last Admin: 05/13/18 08:31 Dose: 1 tab Nitroglycerin (Nitrostat Sl Tab) 0.4 mg SL Q5MIN PRN PRN Reason: chest pain Pantoprazole Sodium (Protonix Ec Tab) 40 mg PO DAILY@0630 [facility] Last Admin: 05/13/18 07:04 Dose: 40 mg Valproate Sodium (Depakene Cap) 500 mg PO DAILY@2100 [facility] Last Admin: 05/12/18 21:57 Dose: 500 mg - Labs Labs: 05/11/18 05:15 05/11/18 05:15 - Head Exam Head Exam: NORMAL INSPECTION - Eye Exam Eye Exam: Normal appearance - ENT Exam ENT Exam: Mucous Membranes Moist - Respiratory Exam Respiratory Exam: Clear to Ausculation Bilateral - Cardiovascular Exam Cardiovascular Exam: REGULAR RHYTHM - GI/Abdominal Exam GI & Abdominal Exam: Normal Bowel Sounds - Neurological Exam Neurological Exam: Awake, Oriented x3 Assessment and Plan (1) Gait abnormality Status: Acute (2) Cerebellar hemorrhage Status: Acute (3) Dehydration Status: Acute (4) Hypertension Status: Chronic (5) Uncontrolled diabetes mellitus Status: Chronic - Assessment and Plan (Free Text) Plan: Cont meds Cont tx Cont PT start metformin januvia adjust levemir cont accucheck cont meds
--- NOTE | 2018-05-13 17:34 | PN ---
Copied To: Sangita Perez MD Attending MD: Sangita Perez MD DATE: 05/13/2018 ENDO FOLLOWUP NOTE LOCATION: In room 621. SUBJECTIVE: This is a 68-year-old female with recent uncontrolled type 2 insulin-requiring diabetes, now being followed closely for metabolic management. Her glycemic levels are fluctuating, but much improved at this time and the latest glucose levels have ranged from 179 to 166 mg/dL. LABORATORY DATA: Her latest chemistry showed a BUN of 31, sodium 139, potassium 4.4, chloride 101, CO2 of 26, glucose 208, and creatinine 0.7. ASSESSMENT AND PLAN: So at this time, we will continue the same basal and bolus insulin regimen to allow for dose equilibration and keep her on the Humalog given as 12 units subcutaneously t.i.d. before meals as ordered. We will continue the basal insulin given as Levemir at 44 units subcutaneously at bedtime daily as given. We will titrate incrementally as indicated to optimize metabolic control. We will obtain serial chemistries and supplement accordingly as needed. We will follow. Sangita Perez MD
[2018-05-13] MEDS: Insulin Detemir 100 Units/ml Inj SC SCH (21:53)
[2018-05-13] MEDS: Alum-Mag Hydrox-Simethicone Susp (30 mL) PO PRN (23:36)
[2018-05-14] MEDS: Pantoprazole 40 mg EC Tab PO SCH (06:55)
[2018-05-14] MEDS: Insulin Lispro (humaLOG) 100 Units/ml Inj SC SCH ×4 (07:06→21:00)
[2018-05-14] MEDS: Multivitamin With Minerals Tab PO SCH (08:07)
--- NOTE | 2018-05-14 08:31 | CP.PCM.PN ---
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 motivated continue current care Objective - Vital Signs/Intake and Output Vital Signs (last 24 hours): Temp Pulse Resp BP Pulse Ox 97.2 F L 77 20 124/69 98 05/14/18 07:53 05/14/18 08:05 05/14/18 07:53 05/14/18 08:05 05/14/18 07:53 - Medications Medications: Current Medications Acetaminophen (Tylenol 325mg Tab) 650 mg PO Q4 PRN PRN Reason: Pain scale 4-10 Last Admin: 05/14/18 06:58 Dose: 650 mg Al Hydrox/Mg Hydrox/Simethicone (Maalox Plus 30 Ml) 30 ml PO Q6 PRN PRN Reason: Indigestion / Heartburn Last Admin: 05/13/18 23:36 Dose: 30 ml Atorvastatin Calcium (Lipitor) 80 mg PO [facility] Last Admin: 05/13/18 21:45 Dose: 80 mg Insulin Detemir (Levemir) 20 units SC [facility] Last Admin: 05/13/18 21:53 Dose: 20 units Insulin Human Lispro (Humalog) 0 units SC [facility] PRN Reason: Protocol Last Admin: 05/14/18 07:06 Dose: 4 units Losartan Potassium (Cozaar) 100 mg PO DAILY [facility] Last Admin: 05/14/18 08:05 Dose: 100 mg Metformin HCl (Glucophage) 1,000 mg PO BIDWM [facility] Last Admin: 05/14/18 08:06 Dose: 1,000 mg Multivitamins/Minerals (Therapeutic-M Tab) 1 tab PO DAILY [facility] Last Admin: 05/14/18 08:07 Dose: 1 tab Nitroglycerin (Nitrostat Sl Tab) 0.4 mg SL Q5MIN PRN PRN Reason: chest pain Pantoprazole Sodium (Protonix Ec Tab) 40 mg PO DAILY@0630 [facility] Last Admin: 05/14/18 06:55 Dose: 40 mg Sitagliptin Phosphate (Januvia) 100 mg PO DAILY [facility] Last Admin: 05/14/18 08:08 Dose: 100 mg Valproate Sodium (Depakene Cap) 500 mg PO DAILY@2100 [facility] Last Admin: 05/13/18 21:45 Dose: 500 mg - Labs Labs: 05/11/18 05:15 05/11/18 05:15
--- NOTE | 2018-05-14 16:55 | PN ---
Copied To: Sangita Perez MD Attending MD: Sangita Perez MD DATE: 05/14/2018 ENDO FOLLOWUP LOCATION: In room 621. SUBJECTIVE: This is a 68-year-old female with recent uncontrolled type 2 insulin-requiring diabetes, presenting here with marked hyperglycemic accelerations and concomitant acute hemorrhagic stroke in the cerebellar area and is undergoing acute rehabilitation therapy as noted. Her glycemic levels have remarkably improved with the initiation of a basal and bolus insulin regimen since admission to ICU and also since transfer to the acute rehab unit as noted. However, the primary physician has opted to stop her mealtime insulin dosing and switch her over to oral hypoglycemic therapy as given with supervening hyperglycemic accelerations as expected. Her glucose values overnight have ranged from 189 to 304 and 213 mg/dL. So at this time, we will continue the present combination of oral hypoglycemic therapy and insulin therapy as ordered by the primary physician as given. We will obtain serial chemistries and supplement accordingly as needed. We will follow. In light of previous and multiple recurrences of cerebrovascular events or hemorrhagic strokes, we will really be very prudent in switching over her insulin regimen because our goal is to optimize her glycemic levels and metabolic control to prevent further micro or macrovascular complications of diabetes. Sangita Perez MD
[2018-05-14] MEDS: Insulin Detemir 100 Units/ml Inj SC SCH (21:57)
[2018-05-14] MEDS: Alum-Mag Hydrox-Simethicone Susp (30 mL) PO PRN (22:35)
[2018-05-15] MEDS: Pantoprazole 40 mg EC Tab PO SCH (06:36)
[2018-05-15] MEDS: Insulin Lispro (humaLOG) 100 Units/ml Inj SC SCH ×4 (06:45→21:25)
[2018-05-15] MEDS: Multivitamin With Minerals Tab PO SCH (08:59)
[2018-05-15] MEDS: Alum-Mag Hydrox-Simethicone Susp (30 mL) PO PRN (20:17)
[2018-05-15] MEDS: Insulin Detemir 100 Units/ml Inj SC SCH (21:47)
--- NOTE | 2018-05-15 23:24 | CP.PCM.PN ---
Subjective - Date & Time of Evaluation Date of Evaluation: 05/13/18 Time of Evaluation: 10:00 - Subjective Subjective: Patient remains stable tolerates new po meds for DM 2 Accuchecks are still elevated Has no chest pain or SOB Doing well with Phsy therapy Objective - Vital Signs/Intake and Output Vital Signs (last 24 hours): Temp Pulse Resp BP Pulse Ox 97.9 F 108 H 20 134/67 99 05/15/18 20:19 05/15/18 20:16 05/15/18 20:16 05/15/18 20:16 05/15/18 20:16 - Medications Medications: Current Medications Acetaminophen (Tylenol 325mg Tab) 650 mg PO Q4 PRN PRN Reason: Pain scale 4-10 Last Admin: 05/15/18 20:19 Dose: 650 mg Al Hydrox/Mg Hydrox/Simethicone (Maalox Plus 30 Ml) 30 ml PO Q6 PRN PRN Reason: Indigestion / Heartburn Last Admin: 05/15/18 20:17 Dose: 30 ml Atorvastatin Calcium (Lipitor) 80 mg PO HS [facility] Last Admin: 05/15/18 21:28 Dose: 80 mg Glipizide (Glucotrol Xl) 5 mg PO BRK [facility] Insulin Detemir (Levemir) 20 units SC HS [facility] Last Admin: 05/15/18 21:47 Dose: 20 units Insulin Human Lispro (Humalog) 0 units SC [facility] PRN Reason: Protocol Last Admin: 05/15/18 21:25 Dose: Not Given Losartan Potassium (Cozaar) 100 mg PO DAILY [facility] Last Admin: 05/15/18 08:59 Dose: 100 mg Metformin HCl (Glucophage) 1,000 mg PO BIDWM [facility] Last Admin: 05/15/18 16:44 Dose: 1,000 mg Multivitamins/Minerals (Therapeutic-M Tab) 1 tab PO DAILY [facility] Last Admin: 05/15/18 08:59 Dose: 1 tab Nitroglycerin (Nitrostat Sl Tab) 0.4 mg SL Q5MIN PRN PRN Reason: chest pain Pantoprazole Sodium (Protonix Ec Tab) 40 mg PO DAILY@0630 [facility] Last Admin: 05/15/18 06:36 Dose: 40 mg Sitagliptin Phosphate (Januvia) 100 mg PO DAILY [facility] Last Admin: 05/15/18 08:59 Dose: 100 mg Valproate Sodium (Depakene Cap) 500 mg PO DAILY@2100 [facility] Last Admin: 05/15/18 21:28 Dose: 500 mg - Labs Labs: 05/11/18 05:15 05/11/18 05:15 - Head Exam Head Exam: NORMAL INSPECTION - Eye Exam Eye Exam: Normal appearance - Respiratory Exam Respiratory Exam: Clear to Ausculation Bilateral - Cardiovascular Exam Cardiovascular Exam: REGULAR RHYTHM - GI/Abdominal Exam GI & Abdominal Exam: Soft - Neurological Exam Neurological Exam: Awake, Oriented x3 - Psychiatric Exam Psychiatric exam: Normal Mood Assessment and Plan (1) Gait abnormality Status: Acute (2) Cerebellar hemorrhage Status: Acute (3) Dehydration Status: Acute (4) Hypertension Status: Chronic (5) Uncontrolled diabetes mellitus Status: Chronic - Assessment and Plan (Free Text) Plan: Cont meds Cont PT cont meformin januvia adjust Levemir
--- NOTE | 2018-05-15 23:26 | CP.PCM.PN ---
Subjective - Date & Time of Evaluation Date of Evaluation: 05/14/18 Time of Evaluation: 10:00 - Subjective Subjective: Patient remains stable Accuchecks are better Doing well with PT Objective - Vital Signs/Intake and Output Vital Signs (last 24 hours): Temp Pulse Resp BP Pulse Ox 97.9 F 108 H 20 134/67 99 05/15/18 20:19 05/15/18 20:16 05/15/18 20:16 05/15/18 20:16 05/15/18 20:16 - Medications Medications: Current Medications Acetaminophen (Tylenol 325mg Tab) 650 mg PO Q4 PRN PRN Reason: Pain scale 4-10 Last Admin: 05/15/18 20:19 Dose: 650 mg Al Hydrox/Mg Hydrox/Simethicone (Maalox Plus 30 Ml) 30 ml PO Q6 PRN PRN Reason: Indigestion / Heartburn Last Admin: 05/15/18 20:17 Dose: 30 ml Atorvastatin Calcium (Lipitor) 80 mg PO [facility] Last Admin: 05/15/18 21:28 Dose: 80 mg Glipizide (Glucotrol Xl) 5 mg PO BRK [facility] Insulin Detemir (Levemir) 20 units SC [facility] Last Admin: 05/15/18 21:47 Dose: 20 units Insulin Human Lispro (Humalog) 0 units SC [facility] PRN Reason: Protocol Last Admin: 05/15/18 21:25 Dose: Not Given Losartan Potassium (Cozaar) 100 mg PO DAILY [facility] Last Admin: 05/15/18 08:59 Dose: 100 mg Metformin HCl (Glucophage) 1,000 mg PO BIDWM [facility] Last Admin: 05/15/18 16:44 Dose: 1,000 mg Multivitamins/Minerals (Therapeutic-M Tab) 1 tab PO DAILY [facility] Last Admin: 05/15/18 08:59 Dose: 1 tab Nitroglycerin (Nitrostat Sl Tab) 0.4 mg SL Q5MIN PRN PRN Reason: chest pain Pantoprazole Sodium (Protonix Ec Tab) 40 mg PO DAILY@0630 [facility] Last Admin: 05/15/18 06:36 Dose: 40 mg Sitagliptin Phosphate (Januvia) 100 mg PO DAILY [facility] Last Admin: 05/15/18 08:59 Dose: 100 mg Valproate Sodium (Depakene Cap) 500 mg PO DAILY@2100 [facility] Last Admin: 05/15/18 21:28 Dose: 500 mg - Labs Labs: 05/11/18 05:15 05/11/18 05:15 - Head Exam Head Exam: NORMAL INSPECTION - Eye Exam Eye Exam: Normal appearance - ENT Exam ENT Exam: Mucous Membranes Moist - Respiratory Exam Respiratory Exam: Clear to Ausculation Bilateral - Cardiovascular Exam Cardiovascular Exam: REGULAR RHYTHM - GI/Abdominal Exam GI & Abdominal Exam: Soft, Normal Bowel Sounds - Neurological Exam Neurological Exam: Awake, Oriented x3 Assessment and Plan (1) Gait abnormality Status: Acute (2) Cerebellar hemorrhage Status: Acute (3) Dehydration Status: Acute (4) Hypertension Status: Chronic (5) Uncontrolled diabetes mellitus Status: Chronic - Assessment and Plan (Free Text) Plan: Contmeds Cont Phys therapy cont accucheck adjust levemir
--- NOTE | 2018-05-15 23:32 | CP.PCM.PN ---
Subjective - Date & Time of Evaluation Date of Evaluation: 05/15/18 Time of Evaluation: 11:00 - Subjective Subjective: Still with elevated FBS but much better controlled. Has no chest pain or SOB [facility] Objective - Vital Signs/Intake and Output Vital Signs (last 24 hours): Temp Pulse Resp BP Pulse Ox 97.9 F 108 H 20 134/67 99 05/15/18 20:19 05/15/18 20:16 05/15/18 20:16 05/15/18 20:16 05/15/18 20:16 - Medications Medications: Current Medications Acetaminophen (Tylenol 325mg Tab) 650 mg PO Q4 PRN PRN Reason: Pain scale 4-10 Last Admin: 05/15/18 20:19 Dose: 650 mg Al Hydrox/Mg Hydrox/Simethicone (Maalox Plus 30 Ml) 30 ml PO Q6 PRN PRN Reason: Indigestion / Heartburn Last Admin: 05/15/18 20:17 Dose: 30 ml Atorvastatin Calcium (Lipitor) 80 mg PO [facility] Last Admin: 05/15/18 21:28 Dose: 80 mg Glipizide (Glucotrol Xl) 5 mg PO BRK [facility] Insulin Detemir (Levemir) 20 units SC [facility] Last Admin: 05/15/18 21:47 Dose: 20 units Insulin Human Lispro (Humalog) 0 units SC [facility] PRN Reason: Protocol Last Admin: 05/15/18 21:25 Dose: Not Given Losartan Potassium (Cozaar) 100 mg PO DAILY [facility] Last Admin: 05/15/18 08:59 Dose: 100 mg Metformin HCl (Glucophage) 1,000 mg PO BIDWM [facility] Last Admin: 05/15/18 16:44 Dose: 1,000 mg Multivitamins/Minerals (Therapeutic-M Tab) 1 tab PO DAILY [facility] Last Admin: 05/15/18 08:59 Dose: 1 tab Nitroglycerin (Nitrostat Sl Tab) 0.4 mg SL Q5MIN PRN PRN Reason: chest pain Pantoprazole Sodium (Protonix Ec Tab) 40 mg PO DAILY@0630 [facility] Last Admin: 05/15/18 06:36 Dose: 40 mg Sitagliptin Phosphate (Januvia) 100 mg PO DAILY [facility] Last Admin: 05/15/18 08:59 Dose: 100 mg Valproate Sodium (Depakene Cap) 500 mg PO DAILY@2100 [facility] Last Admin: 05/15/18 21:28 Dose: 500 mg - Labs Labs: 05/11/18 05:15 05/11/18 05:15 - Head Exam Head Exam: NORMAL INSPECTION - Eye Exam Eye Exam: Normal appearance - ENT Exam ENT Exam: Mucous Membranes Moist - Respiratory Exam Respiratory Exam: Clear to Ausculation Bilateral - Cardiovascular Exam Cardiovascular Exam: REGULAR RHYTHM - GI/Abdominal Exam GI & Abdominal Exam: Normal Bowel Sounds - Neurological Exam Neurological Exam: CN II-XII Intact, Oriented x3 - Psychiatric Exam Psychiatric exam: Normal Mood Assessment and Plan (1) Gait abnormality Status: Acute (2) Cerebellar hemorrhage Status: Acute (3) Dehydration Status: Acute (4) Hypertension Status: Chronic (5) Uncontrolled diabetes mellitus Status: Chronic - Assessment and Plan (Free Text) Plan: Cont meds Cont tx add glipizide in am cont tx Cont Phys therapy
--- NOTE | 2018-05-16 04:40 | PN ---
Copied To: Sangita Perez MD Attending MD: Sangita Perez MD DATE: 05/15/2018 ENDO FOLLOWUP NOTE LOCATION: Room 621. SUBJECTIVE: This is a 68-year-old female with recent uncontrolled type 2 insulin-requiring diabetes, now being followed closely for metabolic management. Her glycemic levels are fluctuating, but improved as she was placed on a high dose Humalog insulin coverage given p.r.n. for glucose fluctuations as inpatient. Her glycemic levels today have ranged from 179 to 166 mg/dL. Her latest chemistry shows a BUN of 31, sodium 139, potassium 4.4, chloride 101, CO2 of 26, glucose 208, and creatinine 0.7. ASSESSMENT AND PLAN: So at this time, we will continue the current basal insulin given as Levemir at 20 units subcu at bedtime daily as given. We will continue also the dual oral hypoglycemic therapy as ordered. We will obtain serial chemistries and supplement accordingly as needed. We will follow. Sangita Perez MD
[2018-05-16] MEDS: Pantoprazole 40 mg EC Tab PO SCH (06:17)
[2018-05-16] MEDS: Insulin Lispro (humaLOG) 100 Units/ml Inj SC SCH ×4 (06:30→22:17)
[2018-05-16 06:59] LABS: BASO # 0.1 K/uL (0.0-0.2); EOS # 0.2 K/uL (0.0-0.7); EOS % 2.2 % (0.0-4.0); HEMOGLOBIN 13.7 g/dL (12.0-16.0); LYMPH # 3.5 K/uL (1.0-4.3); LYMPH % 37.1 % (20.0-40.0); MEAN CORPUSCULAR HEMOGLOBIN 29.5 pg (27.0-31.0); MEAN CORPUSCULAR HGB CONC 34.3 g/dL (33.0-37.0); MEAN PLATELET VOLUME 11.2 fl (7.2-11.7); MONO # 0.6 K/uL (0.0-0.8); MONO % 6.7 % (0.0-10.0); NRBC % 0.1 % (0.0-0.0); RBC 4.63 Mil/uL (3.80-5.20); RED CELL DISTRIBUTION WIDTH 14.4 % (11.5-14.5); WHITE BLOOD COUNT 9.3 K/uL (4.8-10.8)
[2018-05-16 07:21] LABS: ALB/GLOB RATIO 1.3 (1.0-2.1); ALBUMIN 3.5 g/dL (3.5-5.0); ALT/SGPT 55 U/L (9-52); AST/SGOT 68 U/L (14-36); BLOOD UREA NITROGEN 55 mg/dl (7-17); CALCIUM 9.3 mg/dL (8.4-10.2); GFR AFRICAN-AMERICAN > 60; GFR NON-AFRICAN AMERICAN > 60
[2018-05-16] MEDS: Multivitamin With Minerals Tab PO SCH (08:12)
[2018-05-16] MEDS: GlipiZIDE 5 mg SR Tab PO SCH (08:12)
--- NOTE | 2018-05-16 10:41 | CP.PCM.PN ---
Subjective - Date & Time of Evaluation Date of Evaluation: 05/16/18 Time of Evaluation: 10:33 - Subjective Subjective: Ms. Johnson was seen and examined during therapy session. She is alert, oriented but claims of not feeling well since admission. She denies any headache , dizziness, blurred vision, diplopia. He also claims of poor PO intake especially fluid, explained the importance of hydration, verbalizes understanding. She remains with right side weakness. There was no untoward events overnight. Objective - Vital Signs/Intake and Output Vital Signs (last 24 hours): Temp Pulse Resp BP Pulse Ox 97.5 F L 95 H 20 120/68 96 05/16/18 07:46 05/16/18 08:46 05/16/18 07:46 05/16/18 08:12 05/16/18 07:46 - Medications Medications: Current Medications Acetaminophen (Tylenol 325mg Tab) 650 mg PO Q4 PRN PRN Reason: Pain scale 4-10 Last Admin: 05/15/18 20:19 Dose: 650 mg Al Hydrox/Mg Hydrox/Simethicone (Maalox Plus 30 Ml) 30 ml PO Q6 PRN PRN Reason: Indigestion / Heartburn Last Admin: 05/15/18 20:17 Dose: 30 ml Atorvastatin Calcium (Lipitor) 80 mg PO HS [facility] Last Admin: 05/15/18 21:28 Dose: 80 mg Glipizide (Glucotrol Xl) 5 mg PO BRK [facility] Last Admin: 05/16/18 08:12 Dose: 5 mg Insulin Detemir (Levemir) 20 units SC HS [facility] Last Admin: 05/15/18 21:47 Dose: 20 units Insulin Human Lispro (Humalog) 0 units SC [facility] PRN Reason: Protocol Last Admin: 05/16/18 06:30 Dose: Not Given Losartan Potassium (Cozaar) 100 mg PO DAILY [facility] Last Admin: 05/16/18 08:12 Dose: 100 mg Metformin HCl (Glucophage) 1,000 mg PO BIDWM [facility] Last Admin: 05/16/18 08:11 Dose: 1,000 mg Multivitamins/Minerals (Therapeutic-M Tab) 1 tab PO DAILY [facility] Last Admin: 05/16/18 08:12 Dose: 1 tab Nitroglycerin (Nitrostat Sl Tab) 0.4 mg SL Q5MIN PRN PRN Reason: chest pain Pantoprazole Sodium (Protonix Ec Tab) 40 mg PO DAILY@0630 [facility] Last Admin: 05/16/18 06:17 Dose: 40 mg Sitagliptin Phosphate (Januvia) 100 mg PO DAILY [facility] Last Admin: 05/16/18 08:12 Dose: 100 mg Valproate Sodium (Depakene Cap) 500 mg PO DAILY@2100 [facility] Last Admin: 05/15/18 21:28 Dose: 500 mg - Labs Labs: 05/16/18 05:10 05/16/18 05:10 - Constitutional Appears: No Acute Distress - Head Exam Head Exam: NORMAL INSPECTION - Eye Exam Pupil Exam: PERRL - Neurological Exam Neurological Exam: Alert, Awake Neuro motor strength exam: Left Upper Extremity: 4, Right Upper Extremity: 3, Left Lower Extremity: 4, Right Lower Extremity: 3 Additional comments: alert, oriented, participates during therapy session. Assessment and Plan (1) Cerebellar hemorrhage Assessment & Plan: Case discussed with Dr. Arroyo, continue all current medical, physical, occupational, and speech therapies. Recommend blood pressure and glycemic control, hydration. Status: Acute
[2018-05-16] MEDS: Sodium Chloride 0.45% 1,000 ML IV SCH (17:35)
--- NOTE | 2018-05-16 18:23 | PN ---
Copied To: Sangita Perez MD Attending MD: Sangita Perez MD DATE: 05/16/2018 ENDO FOLLOWUP NOTE LOCATION: Room 621. SUBJECTIVE: This is a 68-year-old female with recent uncontrolled type 2 insulin-requiring diabetes now with improved metabolic profile on a combination of oral hypoglycemic therapy and basal insulin therapy as given. Her glucose values have ranged from 145 to 166 and 179 mg/dL. LABORATORY DATA: Her latest chemistry showed a BUN of 55, sodium 139, potassium 4.8, chloride 100, CO2 of 29, glucose 115, and creatinine 0.9. ASSESSMENT AND PLAN: So, at this time, we will continue the same basal insulin given as Levemir at 20 units subcu at bedtime daily as given. We will also continue the metformin given as 1 g b.i.d. and glipizide given as 5 mg at breakfast time and Januvia at 100 mg once daily as ordered. She has also been placed on high dose coverage scale of Humalog insulin as given by the primary physician. We will obtain serial chemistries and supplement accordingly as needed. We will follow. Sangita Perez MD
--- NOTE | 2018-05-16 19:36 | CP.PCM.PN ---
Subjective - Date & Time of Evaluation Date of Evaluation: 05/12/18 Time of Evaluation: 09:00 - Subjective Subjective: no acute complaints Objective - Vital Signs/Intake and Output Vital Signs (last 24 hours): Temp Pulse Resp BP Pulse Ox 97.5 F L 95 H 20 120/68 96 05/16/18 07:46 05/16/18 08:46 05/16/18 07:46 05/16/18 08:12 05/16/18 07:46 - Medications Medications: Current Medications Acetaminophen (Tylenol 325mg Tab) 650 mg PO Q4 PRN PRN Reason: Pain scale 4-10 Last Admin: 05/15/18 20:19 Dose: 650 mg Al Hydrox/Mg Hydrox/Simethicone (Maalox Plus 30 Ml) 30 ml PO Q6 PRN PRN Reason: Indigestion / Heartburn Last Admin: 05/15/18 20:17 Dose: 30 ml Atorvastatin Calcium (Lipitor) 40 mg PO [facility] Glipizide (Glucotrol Xl) 5 mg PO BRK [facility] Last Admin: 05/16/18 08:12 Dose: 5 mg Sodium Chloride (Sodium Chloride 0.45%) 1,000 mls @ 80 mls/hr IV .[id number] [facility] Stop: 05/18/18 00:14 Last Admin: 05/16/18 17:35 Dose: 80 mls/hr Insulin Detemir (Levemir) 20 units SC [facility] Last Admin: 05/15/18 21:47 Dose: 20 units Insulin Human Lispro (Humalog) 0 units SC [facility] PRN Reason: Protocol Last Admin: 05/16/18 17:34 Dose: Not Given Losartan Potassium (Cozaar) 100 mg PO DAILY [facility] Last Admin: 05/16/18 08:12 Dose: 100 mg Metformin HCl (Glucophage) 500 mg PO 1200,1700 [facility] Last Admin: 05/16/18 17:34 Dose: Not Given Multivitamins/Minerals (Therapeutic-M Tab) 1 tab PO DAILY [facility] Last Admin: 05/16/18 08:12 Dose: 1 tab Nitroglycerin (Nitrostat Sl Tab) 0.4 mg SL Q5MIN PRN PRN Reason: chest pain Wuthd-4-Asmt Ethyl Esters (Lovaza) 2 gm PO DAILY [facility] Pantoprazole Sodium (Protonix Ec Tab) 40 mg PO DAILY@0630 [facility] Last Admin: 05/16/18 06:17 Dose: 40 mg Sitagliptin Phosphate (Januvia) 100 mg PO DAILY [facility] Last Admin: 05/16/18 08:12 Dose: 100 mg Valproate Sodium (Depakene Cap) 500 mg PO DAILY@2100 [facility] Last Admin: 05/15/18 21:28 Dose: 500 mg - Labs Labs: 05/16/18 05:10 05/16/18 05:10 - Head Exam Head Exam: ATRAUMATIC, NORMAL INSPECTION, NORMOCEPHALIC - Eye Exam Eye Exam: EOMI, Normal appearance Pupil Exam: NORMAL ACCOMODATION, PERRL - ENT Exam ENT Exam: Mucous Membranes Moist, Normal Exam - Neck Exam Neck Exam: Normal Inspection - Respiratory Exam Respiratory Exam: Clear to Ausculation Bilateral, NORMAL BREATHING PATTERN - Cardiovascular Exam Cardiovascular Exam: REGULAR RHYTHM - GI/Abdominal Exam GI & Abdominal Exam: Soft, Normal Bowel Sounds - Rectal Exam Rectal Exam: NORMAL INSPECTION - Exam External exam: NORMAL EXTERNAL EXAM - Extremities Exam Extremities Exam: Full ROM, Normal Capillary Refill, Normal Inspection - Back Exam Back Exam: NORMAL INSPECTION - Neurological Exam Neurological Exam: Alert, Awake - Psychiatric Exam Psychiatric exam: Normal Mood - Skin Skin Exam: Normal Color Assessment and Plan (1) Cerebellar hemorrhage Assessment & Plan: plan for physical,occupational, rec and speech therapy program Status: Acute (2) Dehydration Status: Acute (3) Hypertension Status: Chronic (4) Uncontrolled diabetes mellitus Status: Chronic
--- NOTE | 2018-05-16 19:40 | CP.PCM.PN ---
Subjective - Date & Time of Evaluation Date of Evaluation: 05/13/18 Time of Evaluation: 10:00 - Subjective Subjective: no acute complaints Objective - Vital Signs/Intake and Output Vital Signs (last 24 hours): Temp Pulse Resp BP Pulse Ox 97.5 F L 95 H 20 120/68 96 05/16/18 07:46 05/16/18 08:46 05/16/18 07:46 05/16/18 08:12 05/16/18 07:46 - Medications Medications: Current Medications Acetaminophen (Tylenol 325mg Tab) 650 mg PO Q4 PRN PRN Reason: Pain scale 4-10 Last Admin: 05/15/18 20:19 Dose: 650 mg Al Hydrox/Mg Hydrox/Simethicone (Maalox Plus 30 Ml) 30 ml PO Q6 PRN PRN Reason: Indigestion / Heartburn Last Admin: 05/15/18 20:17 Dose: 30 ml Atorvastatin Calcium (Lipitor) 40 mg PO [facility] Glipizide (Glucotrol Xl) 5 mg PO BRK [facility] Last Admin: 05/16/18 08:12 Dose: 5 mg Sodium Chloride (Sodium Chloride 0.45%) 1,000 mls @ 80 mls/hr IV .[id number] [facility] Stop: 05/18/18 00:14 Last Admin: 05/16/18 17:35 Dose: 80 mls/hr Insulin Detemir (Levemir) 20 units SC [facility] Last Admin: 05/15/18 21:47 Dose: 20 units Insulin Human Lispro (Humalog) 0 units SC [facility] PRN Reason: Protocol Last Admin: 05/16/18 17:34 Dose: Not Given Losartan Potassium (Cozaar) 100 mg PO DAILY [facility] Last Admin: 05/16/18 08:12 Dose: 100 mg Metformin HCl (Glucophage) 500 mg PO 1200,1700 [facility] Last Admin: 05/16/18 17:34 Dose: Not Given Multivitamins/Minerals (Therapeutic-M Tab) 1 tab PO DAILY [facility] Last Admin: 05/16/18 08:12 Dose: 1 tab Nitroglycerin (Nitrostat Sl Tab) 0.4 mg SL Q5MIN PRN PRN Reason: chest pain Jyxat-7-Xbpz Ethyl Esters (Lovaza) 2 gm PO DAILY [facility] Pantoprazole Sodium (Protonix Ec Tab) 40 mg PO DAILY@0630 [facility] Last Admin: 05/16/18 06:17 Dose: 40 mg Sitagliptin Phosphate (Januvia) 100 mg PO DAILY [facility] Last Admin: 05/16/18 08:12 Dose: 100 mg Valproate Sodium (Depakene Cap) 500 mg PO DAILY@2100 [facility] Last Admin: 05/15/18 21:28 Dose: 500 mg - Labs Labs: 05/16/18 05:10 05/16/18 05:10 - Head Exam Head Exam: NORMAL INSPECTION - Eye Exam Eye Exam: EOMI, Normal appearance Pupil Exam: NORMAL ACCOMODATION - Neck Exam Neck Exam: Normal Inspection - Respiratory Exam Respiratory Exam: Clear to Ausculation Bilateral, NORMAL BREATHING PATTERN - Cardiovascular Exam Cardiovascular Exam: REGULAR RHYTHM - GI/Abdominal Exam GI & Abdominal Exam: Normal Bowel Sounds - Rectal Exam Rectal Exam: NORMAL INSPECTION - Exam External exam: NORMAL EXTERNAL EXAM - Back Exam Back Exam: NORMAL INSPECTION - Neurological Exam Neurological Exam: Alert, Awake Neuro motor strength exam: Left Upper Extremity: 3, Right Upper Extremity: 3, Left Lower Extremity: 3, Right Lower Extremity: 3 - Psychiatric Exam Psychiatric exam: Normal Affect, Normal Mood - Skin Skin Exam: Dry, Normal Color Assessment and Plan (1) Cerebellar hemorrhage Assessment & Plan: neurology and medical follow up . PT Ot rec St dc planning Status: Acute (2) Dehydration Status: Acute (3) Hypertension Status: Chronic (4) Uncontrolled diabetes mellitus Status: Chronic
--- NOTE | 2018-05-16 19:46 | CP.PCM.PN ---
Subjective - Date & Time of Evaluation Date of Evaluation: 05/13/18 Time of Evaluation: 10:00 - Subjective Subjective: no acute complaints Objective - Vital Signs/Intake and Output Vital Signs (last 24 hours): Temp Pulse Resp BP Pulse Ox 97.5 F L 95 H 20 120/68 96 05/16/18 07:46 05/16/18 08:46 05/16/18 07:46 05/16/18 08:12 05/16/18 07:46 - Medications Medications: Current Medications Acetaminophen (Tylenol 325mg Tab) 650 mg PO Q4 PRN PRN Reason: Pain scale 4-10 Last Admin: 05/15/18 20:19 Dose: 650 mg Al Hydrox/Mg Hydrox/Simethicone (Maalox Plus 30 Ml) 30 ml PO Q6 PRN PRN Reason: Indigestion / Heartburn Last Admin: 05/15/18 20:17 Dose: 30 ml Atorvastatin Calcium (Lipitor) 40 mg PO [facility] Glipizide (Glucotrol Xl) 5 mg PO BRK [facility] Last Admin: 05/16/18 08:12 Dose: 5 mg Sodium Chloride (Sodium Chloride 0.45%) 1,000 mls @ 80 mls/hr IV .[id number] [facility] Stop: 05/18/18 00:14 Last Admin: 05/16/18 17:35 Dose: 80 mls/hr Insulin Detemir (Levemir) 20 units SC [facility] Last Admin: 05/15/18 21:47 Dose: 20 units Insulin Human Lispro (Humalog) 0 units SC [facility] PRN Reason: Protocol Last Admin: 05/16/18 17:34 Dose: Not Given Losartan Potassium (Cozaar) 100 mg PO DAILY [facility] Last Admin: 05/16/18 08:12 Dose: 100 mg Metformin HCl (Glucophage) 500 mg PO 1200,1700 [facility] Last Admin: 05/16/18 17:34 Dose: Not Given Multivitamins/Minerals (Therapeutic-M Tab) 1 tab PO DAILY [facility] Last Admin: 05/16/18 08:12 Dose: 1 tab Nitroglycerin (Nitrostat Sl Tab) 0.4 mg SL Q5MIN PRN PRN Reason: chest pain Rnxek-0-Cwma Ethyl Esters (Lovaza) 2 gm PO DAILY [facility] Pantoprazole Sodium (Protonix Ec Tab) 40 mg PO DAILY@0630 [facility] Last Admin: 05/16/18 06:17 Dose: 40 mg Sitagliptin Phosphate (Januvia) 100 mg PO DAILY [facility] Last Admin: 05/16/18 08:12 Dose: 100 mg Valproate Sodium (Depakene Cap) 500 mg PO DAILY@2100 [facility] Last Admin: 05/15/18 21:28 Dose: 500 mg - Labs Labs: 05/16/18 05:10 05/16/18 05:10 - Eye Exam Eye Exam: EOMI, Normal appearance, PERRL Pupil Exam: NORMAL ACCOMODATION, PERRL - ENT Exam ENT Exam: Mucous Membranes Moist, Normal Exam - Neck Exam Neck Exam: Normal Inspection - Respiratory Exam Respiratory Exam: Clear to Ausculation Bilateral, NORMAL BREATHING PATTERN - Cardiovascular Exam Cardiovascular Exam: REGULAR RHYTHM - GI/Abdominal Exam GI & Abdominal Exam: Soft, Normal Bowel Sounds - Exam External exam: NORMAL EXTERNAL EXAM - Extremities Exam Extremities Exam: Normal Capillary Refill - Back Exam Back Exam: NORMAL INSPECTION - Neurological Exam Neurological Exam: Alert, Awake - Psychiatric Exam Psychiatric exam: Normal Affect - Skin Skin Exam: Normal Color Assessment and Plan (1) Cerebellar hemorrhage Assessment & Plan: continue with present therapy program Status: Acute (2) Dehydration Status: Acute (3) Hypertension Status: Chronic (4) Uncontrolled diabetes mellitus Status: Chronic
[2018-05-16] MEDS: Insulin Detemir 100 Units/ml Inj SC SCH (22:15)
[2018-05-17] MEDS: Sodium Chloride 0.45% 1,000 ML IV SCH ×2 (00:22→17:23)
[2018-05-17] MEDS: Pantoprazole 40 mg EC Tab PO SCH (06:56)
[2018-05-17] MEDS: Insulin Lispro (humaLOG) 100 Units/ml Inj SC SCH ×4 (07:01→22:08)
[2018-05-17 07:24] LABS: ALB/GLOB RATIO 1.3 (1.0-2.1); ALBUMIN 3.5 g/dL (3.5-5.0); ALT/SGPT 41 U/L (9-52); AST/SGOT 24 U/L (14-36); BLOOD UREA NITROGEN 47 mg/dl (7-17); CALCIUM 9.4 mg/dL (8.4-10.2); GFR AFRICAN-AMERICAN > 60; GFR NON-AFRICAN AMERICAN > 60
[2018-05-17] MEDS: Omega-3-Acid Ethyl Esters 1 GM Cap PO SCH (08:34)
[2018-05-17] MEDS: Multivitamin With Minerals Tab PO SCH (08:34)
[2018-05-17] MEDS: GlipiZIDE 5 mg SR Tab PO SCH (08:36)
--- NOTE | 2018-05-17 10:43 | CP.PCM.PN ---
Subjective - Date & Time of Evaluation Date of Evaluation: 05/17/18 Time of Evaluation: 10:41 - Subjective Subjective: Ms. Johnson was seen and examined during therapy session. She is alert, oriented but claims of feeling better after having the episode of vomiting yesterday. She denies any headache, dizziness, blurred vision, diplopia. He also claims of poor PO intake especially fluid, explained the importance of hydration and carb/ sugar control, verbalizes understanding. She remains with right side weakness. Objective - Vital Signs/Intake and Output Vital Signs (last 24 hours): Temp Pulse Resp BP Pulse Ox 97.0 F L 81 22 124/69 98 05/17/18 08:34 05/17/18 08:34 05/17/18 08:34 05/17/18 08:35 05/17/18 08:34 Intake and Output: 05/17/18 05/17/18 06:59 18:59 Intake Total 1070 Output Total 600 Balance 470 - Medications Medications: Current Medications Acetaminophen (Tylenol 325mg Tab) 650 mg PO Q4 PRN PRN Reason: Pain scale 4-10 Last Admin: 05/16/18 21:01 Dose: 650 mg Al Hydrox/Mg Hydrox/Simethicone (Maalox Plus 30 Ml) 30 ml PO Q6 PRN PRN Reason: Indigestion / Heartburn Last Admin: 05/15/18 20:17 Dose: 30 ml Atorvastatin Calcium (Lipitor) 40 mg PO HS [facility] Last Admin: 05/16/18 21:08 Dose: 40 mg Glipizide (Glucotrol Xl) 10 mg PO BRK [facility] Sodium Chloride (Sodium Chloride 0.45%) 1,000 mls @ 80 mls/hr IV .[id number] [facility] Stop: 05/18/18 00:14 Last Admin: 05/17/18 00:22 Dose: Not Given Insulin Detemir (Levemir) 20 units SC HS [facility] Last Admin: 05/16/18 22:15 Dose: 20 units Insulin Human Lispro (Humalog) 0 units SC [facility] PRN Reason: Protocol Last Admin: 05/17/18 07:01 Dose: Not Given Losartan Potassium (Cozaar) 100 mg PO DAILY [facility] Last Admin: 05/17/18 08:35 Dose: 100 mg Metformin HCl (Glucophage) 500 mg PO 1200,1700 [facility] Last Admin: 05/16/18 17:34 Dose: Not Given Multivitamins/Minerals (Therapeutic-M Tab) 1 tab PO DAILY [facility] Last Admin: 05/17/18 08:34 Dose: 1 tab Nitroglycerin (Nitrostat Sl Tab) 0.4 mg SL Q5MIN PRN PRN Reason: chest pain Apava-1-Kyhu Ethyl Esters (Lovaza) 2 gm PO DAILY [facility] Last Admin: 05/17/18 08:34 Dose: 2 gm Ondansetron HCl (Zofran Inj) 4 mg IVP Q6 PRN PRN Reason: Nausea/Vomiting Pantoprazole Sodium (Protonix Ec Tab) 40 mg PO DAILY@0630 [facility] Last Admin: 05/17/18 06:56 Dose: 40 mg Sitagliptin Phosphate (Januvia) 100 mg PO DAILY [facility] Last Admin: 05/17/18 08:36 Dose: 100 mg Valproate Sodium (Depakene Cap) 500 mg PO DAILY@2100 [facility] Last Admin: 05/16/18 21:07 Dose: 500 mg - Labs Labs: 05/16/18 05:10 05/17/18 05:06 - Constitutional Appears: No Acute Distress - Head Exam Head Exam: NORMAL INSPECTION - Eye Exam Pupil Exam: PERRL - Neurological Exam Neurological Exam: Alert, Awake, Oriented x3 Neuro motor strength exam: Left Upper Extremity: 5, Right Upper Extremity: 3, Left Lower Extremity: 5, Right Lower Extremity: 3 Additional comments: neurological unchanged from previous examination. Assessment and Plan (1) Cerebellar hemorrhage Assessment & Plan: Case discussed with Dr. Arroyo, continue all current medical, physical, occupational, and speech therapies. Recommend blood pressure and glycemic control, hydration. Status: Acute
--- NOTE | 2018-05-17 12:49 | CP.PCM.PN ---
Subjective - Date & Time of Evaluation Date of Evaluation: 05/17/18 Time of Evaluation: 11:00 - Subjective Subjective: Pt seen this morning; was sitting in chair and getting dressed with help of rehab staff. Reports that she felt nauseous and vomited overnight; attributes this to recent metformin. Pt states she took metformin years ago with similar reaction, but thought maybe this time would be different. Objective - Vital Signs/Intake and Output Vital Signs (last 24 hours): Temp Pulse Resp BP Pulse Ox 97.0 F L 89 22 124/69 98 05/17/18 08:34 05/17/18 08:51 05/17/18 08:34 05/17/18 08:35 05/17/18 08:34 Intake and Output: 05/17/18 05/17/18 06:59 18:59 Intake Total 1070 Output Total 600 Balance 470 - Medications Medications: Current Medications Acetaminophen (Tylenol 325mg Tab) 650 mg PO Q4 PRN PRN Reason: Pain scale 4-10 Last Admin: 05/16/18 21:01 Dose: 650 mg Al Hydrox/Mg Hydrox/Simethicone (Maalox Plus 30 Ml) 30 ml PO Q6 PRN PRN Reason: Indigestion / Heartburn Last Admin: 05/15/18 20:17 Dose: 30 ml Atorvastatin Calcium (Lipitor) 40 mg PO HS [facility] Last Admin: 05/16/18 21:08 Dose: 40 mg Glipizide (Glucotrol Xl) 10 mg PO BRK [facility] Sodium Chloride (Sodium Chloride 0.45%) 1,000 mls @ 80 mls/hr IV .[id number] [facility] Stop: 05/18/18 00:14 Last Admin: 05/17/18 00:22 Dose: Not Given Insulin Detemir (Levemir) 20 units SC HS [facility] Last Admin: 05/16/18 22:15 Dose: 20 units Insulin Human Lispro (Humalog) 0 units SC [facility] PRN Reason: Protocol Last Admin: 05/17/18 12:26 Dose: 2 units Losartan Potassium (Cozaar) 100 mg PO DAILY [facility] Last Admin: 05/17/18 08:35 Dose: 100 mg Metformin HCl (Glucophage) 500 mg PO 1200,1700 [facility] Last Admin: 05/16/18 17:34 Dose: Not Given Multivitamins/Minerals (Therapeutic-M Tab) 1 tab PO DAILY [facility] Last Admin: 05/17/18 08:34 Dose: 1 tab Nitroglycerin (Nitrostat Sl Tab) 0.4 mg SL Q5MIN PRN PRN Reason: chest pain Pdirr-0-Wzcg Ethyl Esters (Lovaza) 2 gm PO DAILY [facility] Last Admin: 05/17/18 08:34 Dose: 2 gm Ondansetron HCl (Zofran Inj) 4 mg IVP Q6 PRN PRN Reason: Nausea/Vomiting Pantoprazole Sodium (Protonix Ec Tab) 40 mg PO DAILY@0630 [facility] Last Admin: 05/17/18 06:56 Dose: 40 mg Sitagliptin Phosphate (Januvia) 100 mg PO DAILY [facility] Last Admin: 05/17/18 08:36 Dose: 100 mg Valproate Sodium (Depakene Cap) 500 mg PO DAILY@2100 [facility] Last Admin: 05/16/18 21:07 Dose: 500 mg - Labs Labs: 05/16/18 05:10 05/17/18 05:06 - Constitutional Appears: Non-toxic, No Acute Distress - Eye Exam Eye Exam: Normal appearance - Respiratory Exam Respiratory Exam: NORMAL BREATHING PATTERN - Cardiovascular Exam Cardiovascular Exam: REGULAR RHYTHM - GI/Abdominal Exam GI & Abdominal Exam: Soft - Back Exam Back Exam: NORMAL INSPECTION - Neurological Exam Neurological Exam: Alert, Awake - Psychiatric Exam Psychiatric exam: Normal Mood - Skin Skin Exam: Dry, Normal Color, Warm Assessment and Plan (1) Gait abnormality Status: Acute (2) Cerebellar hemorrhage Status: Acute (3) Hypertension Status: Chronic (4) Uncontrolled diabetes mellitus Status: Chronic - Assessment and Plan (Free Text) Plan: - hold metformin, increase glipizide and continue with insulin dose - insulin coverage scale protocol - continue with therapies, encourage participation - rest of plan as ordered
--- NOTE | 2018-05-17 13:46 | CP.PCM.PN ---
Subjective - Date & Time of Evaluation Date of Evaluation: 05/17/18 Time of Evaluation: 11:00 - Subjective Subjective: no acute complaints previously back pain but gone now Objective - Vital Signs/Intake and Output Vital Signs (last 24 hours): Temp Pulse Resp BP Pulse Ox 97.0 F L 89 22 124/69 98 05/17/18 08:34 05/17/18 08:51 05/17/18 08:34 05/17/18 08:35 05/17/18 08:34 Intake and Output: 05/17/18 05/17/18 06:59 18:59 Intake Total 1070 Output Total 600 Balance 470 - Medications Medications: Current Medications Acetaminophen (Tylenol 325mg Tab) 650 mg PO Q4 PRN PRN Reason: Pain scale 4-10 Last Admin: 05/16/18 21:01 Dose: 650 mg Al Hydrox/Mg Hydrox/Simethicone (Maalox Plus 30 Ml) 30 ml PO Q6 PRN PRN Reason: Indigestion / Heartburn Last Admin: 05/15/18 20:17 Dose: 30 ml Atorvastatin Calcium (Lipitor) 40 mg PO [facility] Last Admin: 05/16/18 21:08 Dose: 40 mg Glipizide (Glucotrol Xl) 10 mg PO BRK [facility] Sodium Chloride (Sodium Chloride 0.45%) 1,000 mls @ 80 mls/hr IV .[id number] [facility] Stop: 05/18/18 00:14 Last Admin: 05/17/18 00:22 Dose: Not Given Insulin Detemir (Levemir) 20 units SC [facility] Last Admin: 05/16/18 22:15 Dose: 20 units Insulin Human Lispro (Humalog) 0 units SC A[facility] PRN Reason: Protocol Last Admin: 05/17/18 12:26 Dose: 2 units Losartan Potassium (Cozaar) 100 mg PO DAILY [facility] Last Admin: 05/17/18 08:35 Dose: 100 mg Metformin HCl (Glucophage) 500 mg PO 1200,1700 [facility] Last Admin: 05/16/18 17:34 Dose: Not Given Multivitamins/Minerals (Therapeutic-M Tab) 1 tab PO DAILY [facility] Last Admin: 05/17/18 08:34 Dose: 1 tab Nitroglycerin (Nitrostat Sl Tab) 0.4 mg SL Q5MIN PRN PRN Reason: chest pain Iiwtl-0-Awfg Ethyl Esters (Lovaza) 2 gm PO DAILY [facility] Last Admin: 05/17/18 08:34 Dose: 2 gm Ondansetron HCl (Zofran Inj) 4 mg IVP Q6 PRN PRN Reason: Nausea/Vomiting Pantoprazole Sodium (Protonix Ec Tab) 40 mg PO DAILY@0630 [facility] Last Admin: 05/17/18 06:56 Dose: 40 mg Sitagliptin Phosphate (Januvia) 100 mg PO DAILY [facility] Last Admin: 05/17/18 08:36 Dose: 100 mg Valproate Sodium (Depakene Cap) 500 mg PO DAILY@2100 [facility] Last Admin: 05/16/18 21:07 Dose: 500 mg - Labs Labs: 05/16/18 05:10 05/17/18 05:06 - Head Exam Head Exam: ATRAUMATIC, NORMAL INSPECTION, NORMOCEPHALIC - Eye Exam Eye Exam: EOMI, Normal appearance, PERRL Pupil Exam: NORMAL ACCOMODATION - ENT Exam ENT Exam: Mucous Membranes Moist, Normal Exam - Neck Exam Neck Exam: Normal Inspection - Respiratory Exam Respiratory Exam: Clear to Ausculation Bilateral, NORMAL BREATHING PATTERN - Cardiovascular Exam Cardiovascular Exam: REGULAR RHYTHM - GI/Abdominal Exam GI & Abdominal Exam: Soft, Normal Bowel Sounds - Rectal Exam Rectal Exam: NORMAL INSPECTION - Exam External exam: NORMAL EXTERNAL EXAM - Extremities Exam Extremities Exam: Full ROM, Normal Capillary Refill - Back Exam Back Exam: NORMAL INSPECTION - Neurological Exam Neurological Exam: Alert Neuro motor strength exam: Left Upper Extremity: 3, Right Upper Extremity: 4, Left Lower Extremity: 3, Right Lower Extremity: 4 - Psychiatric Exam Psychiatric exam: Normal Affect, Normal Mood - Skin Skin Exam: Dry, Intact Assessment and Plan (1) Cerebellar hemorrhage Assessment & Plan: status post BM status post Pt , Ot rec and St Status: Acute (2) Dehydration Status: Acute (3) Hypertension Status: Chronic (4) Uncontrolled diabetes mellitus Status: Chronic
--- NOTE | 2018-05-17 15:44 | PN ---
Copied To: Sangita Perez MD Attending MD: Sangita Perez MD DATE: 05/17/2018 ENDO FOLLOWUP NOTE LOCATION: In room 621. SUBJECTIVE: This is a 68-year-old female with recent uncontrolled type 2 insulin-requiring diabetes, now being followed closely for metabolic management. Her glycemic levels are fluctuating, but much improved and the latest glucose values have ranged from mg/dL. LABORATORY DATA: Her latest chemistry showed a BUN of 37, sodium 139, potassium 4.2, chloride of 101, CO2 of 27, glucose 116, and creatinine 0.7. ASSESSMENT AND PLAN: At this time, we will continue the same oral hypoglycemic combination with basal insulin as given. We will continue the Levemir given as 20 units subcutaneously at bedtime daily as ordered. We will also continue her glipizide given as 5 mg daily with Januvia at 100 mg daily as ordered. We will obtain serial chemistries and supplement accordingly as needed. We will follow. Sangita Perez MD
[2018-05-17] MEDS: Insulin Detemir 100 Units/ml Inj SC SCH (22:00)
[2018-05-18] MEDS: Pantoprazole 40 mg EC Tab PO SCH (06:27)
[2018-05-18] MEDS: Insulin Lispro (humaLOG) 100 Units/ml Inj SC SCH ×4 (07:40→21:00)
[2018-05-18] MEDS: Multivitamin With Minerals Tab PO SCH (08:16)
[2018-05-18] MEDS: GlipiZIDE 10 mg SR Tab PO SCH (08:17)
[2018-05-18] MEDS: Omega-3-Acid Ethyl Esters 1 GM Cap PO SCH (08:17)
--- NOTE | 2018-05-18 09:28 | CP.PCM.PN ---
Subjective - Date & Time of Evaluation Date of Evaluation: 05/18/18 Time of Evaluation: 09:28 - Subjective Subjective: Ms. Johnson was seen and examined during therapy session. She is alert, oriented. She denies any headache, dizziness, blurred vision, diplopia. She also claims of poor PO intake especially fluid, explained the importance of hydration and carb/ sugar control, verbalizes understanding. She remains with right side weakness. She is able to move around the room using wheelchair. There was no untoward events overnight. Objective - Vital Signs/Intake and Output Vital Signs (last 24 hours): Temp Pulse Resp BP Pulse Ox 97.3 F L 82 20 129/64 98 05/18/18 09:01 05/18/18 09:01 05/18/18 09:01 05/18/18 09:01 05/18/18 09:01 Intake and Output: 05/18/18 05/18/18 06:59 18:59 Intake Total 840 Output Total 700 Balance 140 - Medications Medications: Current Medications Acetaminophen (Tylenol 325mg Tab) 650 mg PO Q4 PRN PRN Reason: Pain scale 4-10 Last Admin: 05/16/18 21:01 Dose: 650 mg Al Hydrox/Mg Hydrox/Simethicone (Maalox Plus 30 Ml) 30 ml PO Q6 PRN PRN Reason: Indigestion / Heartburn Last Admin: 05/15/18 20:17 Dose: 30 ml Atorvastatin Calcium (Lipitor) 40 mg PO HS [facility] Last Admin: 05/17/18 22:00 Dose: 40 mg Glipizide (Glucotrol Xl) 10 mg PO BRK [facility] Last Admin: 05/18/18 08:17 Dose: 10 mg Sodium Chloride (Sodium Chloride 0.45%) 1,000 mls @ 80 mls/hr IV .[id number] [facility] Stop: 05/19/18 06:29 Insulin Detemir (Levemir) 20 units SC [facility] Last Admin: 05/17/18 22:00 Dose: 20 units Insulin Human Lispro (Humalog) 0 units SC [facility] PRN Reason: Protocol Last Admin: 05/18/18 07:40 Dose: 2 units Losartan Potassium (Cozaar) 100 mg PO DAILY [facility] Last Admin: 05/18/18 08:16 Dose: 100 mg Metformin HCl (Glucophage) 500 mg PO 1200,1700 [facility] Last Admin: 05/16/18 17:34 Dose: Not Given Multivitamins/Minerals (Therapeutic-M Tab) 1 tab PO DAILY [facility] Last Admin: 05/18/18 08:16 Dose: 1 tab Nitroglycerin (Nitrostat Sl Tab) 0.4 mg SL Q5MIN PRN PRN Reason: chest pain Tcotl-1-Fvcx Ethyl Esters (Lovaza) 2 gm PO DAILY [facility] Last Admin: 05/18/18 08:17 Dose: 2 gm Ondansetron HCl (Zofran Inj) 4 mg IVP Q6 PRN PRN Reason: Nausea/Vomiting Pantoprazole Sodium (Protonix Ec Tab) 40 mg PO DAILY@0630 [facility] Last Admin: 05/18/18 06:27 Dose: 40 mg Sitagliptin Phosphate (Januvia) 100 mg PO DAILY [facility] Last Admin: 05/18/18 08:17 Dose: 100 mg Valproate Sodium (Depakene Cap) 500 mg PO DAILY@2100 [facility] Last Admin: 05/17/18 22:00 Dose: 500 mg - Labs Labs: 05/16/18 05:10 05/17/18 05:06 - Constitutional Appears: No Acute Distress - Head Exam Head Exam: NORMAL INSPECTION - Eye Exam Pupil Exam: PERRL - Neurological Exam Neurological Exam: Alert, Awake, Oriented x3 Neuro motor strength exam: Left Upper Extremity: 4, Right Upper Extremity: 2/1, Left Lower Extremity: 4, Right Lower Extremity: 2/1 Additional comments: neurological unchanged from previous examination. Assessment and Plan (1) Cerebellar hemorrhage Assessment & Plan: Continue current medical, physical, occupational, speech therapies. Recommend a repeat CT of the head without contrast to monitor hemorrhagic stroke, blood pressure and glycemic control, hydration. Status: Acute
--- NOTE | 2018-05-18 11:37 | CT ---
Date of service: 05/18/2018 PROCEDURE: CT HEAD WITHOUT CONTRAST. HISTORY: Follow-up hemorrhagic stroke COMPARISON: Comparison made with prior CT scan and MRI brain both dated 05/05/18 TECHNIQUE: Axial computed tomography images were obtained through the head/brain without intravenous contrast. Radiation dose: Total exam DLP = 826.21 mGy-cm. This CT exam was performed using one or more of the following dose reduction techniques: Automated exposure control, adjustment of the mA and/or kV according to patient size, and/or use of iterative reconstruction technique. FINDINGS: HEMORRHAGE: Current study re- demonstrates an round /elliptical shaped hyperdense focus within the left cerebellum bordering the posterior margin of the left middle cerebellar peduncle with surrounding encephalomalacia. Recent MRI demonstrates no with evidence to suggest an acute hemorrhagic infarct. The findings most likely represent sequela of old hemorrhage (evidenced by hemosiderin blooming on gradient echo weighted sequence) possibly associated with dystrophic microcalcification ; rule out old hypertensive origin hemorrhage. Additional differential diagnosis would include underlying vascular lesion such as a cavernous hemangioma which has undergone repeated micro hemorrhages. Focus of hemorrhage related to amyloid angiography not excluded. Postcontrast MRI of the brain is recommended to further characterize this lesion if indicated. BRAIN: Mild to moderate diffuse/confluent chronic periventricular white matter ischemic changes extending peripherally into the deep and subcortical white matter both cerebral hemispheres as well as multiple more discrete round and elliptical shaped varying sized chronic infarcts scattered about the deep and subcortical white matter as well as both basal nuclei and left brainstem less well seen on this exam as compared to high-resolution MRI. Mild moderate generalized volume loss. VENTRICLES: No obstructive hydrocephalus. CALVARIUM: No acute calvarial fractures. Mild hyperostosis frontalis interna again noted. Small round/elliptical shaped extra-axial calcification are left frontal region near the vertex likely represents a simple dural base calcification as no obvious masses identified in this location on MRI. PARANASAL SINUSES: Unremarkable as visualized. No significant inflammatory changes. MASTOID AIR CELLS: Unremarkable as visualized. No inflammatory changes. OTHER FINDINGS: None. IMPRESSION: No interval change in the appearance of what appears represent old hemorrhagic focus possibly associated with dystrophic type microcalcification left cerebellum with stable surrounding encephalomalacia as described. See above discussion for differential diagnostic considerations. . Note that this lesion is less well seen compared to prior MRI. Chronic white matter, basal nuclei and brainstem ischemic changes also less well seen compared the prior MRI. Mild moderate generalized volume loss.
--- NOTE | 2018-05-18 15:59 | CP.PCM.PN ---
Subjective - Date & Time of Evaluation Date of Evaluation: 05/18/18 Time of Evaluation: 15:55 - Subjective Subjective: Pt seen/evaluated today; no acute events overnight. This morning she had repeat CT of head as per neuro to monitor hemorrhagic stroke. She is participating in therapy. No more nausea since discontinuing metformin. Objective - Vital Signs/Intake and Output Vital Signs (last 24 hours): Temp Pulse Resp BP Pulse Ox 97.3 F L 82 20 129/64 98 05/18/18 11:30 05/18/18 11:30 05/18/18 11:30 05/18/18 11:30 05/18/18 09:01 Intake and Output: 05/18/18 05/18/18 06:59 18:59 Intake Total 840 Output Total 700 Balance 140 - Medications Medications: Current Medications Acetaminophen (Tylenol 325mg Tab) 650 mg PO Q4 PRN PRN Reason: Pain scale 4-10 Last Admin: 05/16/18 21:01 Dose: 650 mg Al Hydrox/Mg Hydrox/Simethicone (Maalox Plus 30 Ml) 30 ml PO Q6 PRN PRN Reason: Indigestion / Heartburn Last Admin: 05/15/18 20:17 Dose: 30 ml Atorvastatin Calcium (Lipitor) 40 mg PO HS [facility] Last Admin: 05/17/18 22:00 Dose: 40 mg Glipizide (Glucotrol Xl) 10 mg PO BRK [facility] Last Admin: 05/18/18 08:17 Dose: 10 mg Sodium Chloride (Sodium Chloride 0.45%) 1,000 mls @ 80 mls/hr IV .[id number] ONE Stop: 05/19/18 06:29 Insulin Detemir (Levemir) 20 units SC HS [facility] Last Admin: 05/17/18 22:00 Dose: 20 units Insulin Human Lispro (Humalog) 0 units SC ACHS [facility] PRN Reason: Protocol Last Admin: 05/18/18 12:22 Dose: 8 units Losartan Potassium (Cozaar) 100 mg PO DAILY [facility] Last Admin: 05/18/18 08:16 Dose: 100 mg Metformin HCl (Glucophage) 500 mg PO 1200,1700 [facility] Last Admin: 05/16/18 17:34 Dose: Not Given Multivitamins/Minerals (Therapeutic-M Tab) 1 tab PO DAILY [facility] Last Admin: 05/18/18 08:16 Dose: 1 tab Nitroglycerin (Nitrostat Sl Tab) 0.4 mg SL Q5MIN PRN PRN Reason: chest pain [id number] Ethyl Esters (Lovaza) 2 gm PO DAILY [facility] Last Admin: 05/18/18 08:17 Dose: 2 gm Ondansetron HCl (Zofran Inj) 4 mg IVP Q6 PRN PRN Reason: Nausea/Vomiting Pantoprazole Sodium (Protonix Ec Tab) 40 mg PO DAILY@0630 [facility] Last Admin: 05/18/18 06:27 Dose: 40 mg Sitagliptin Phosphate (Januvia) 100 mg PO DAILY [facility] Last Admin: 05/18/18 08:17 Dose: 100 mg Valproate Sodium (Depakene Cap) 500 mg PO DAILY@2100 [facility] Last Admin: 05/17/18 22:00 Dose: 500 mg - Labs Labs: 05/16/18 05:10 05/17/18 05:06 - Constitutional Appears: Non-toxic, No Acute Distress - Eye Exam Eye Exam: Normal appearance - Respiratory Exam Respiratory Exam: NORMAL BREATHING PATTERN - Cardiovascular Exam Cardiovascular Exam: REGULAR RHYTHM - GI/Abdominal Exam GI & Abdominal Exam: Soft - Neurological Exam Neurological Exam: Alert, Awake Additional comments: R sided weakness, s/p stroke - Psychiatric Exam Psychiatric exam: Normal Mood - Skin Skin Exam: Dry, Normal Color, Warm Assessment and Plan (1) Gait abnormality Status: Acute (2) Cerebellar hemorrhage Status: Acute (3) Hypertension Status: Chronic (4) Uncontrolled diabetes mellitus Status: Chronic - Assessment and Plan (Free Text) Plan: - continue with current medications and therapies - encourage adequate hydration - insulin coverage scale protocol - rest of plan as ordered
--- NOTE | 2018-05-18 16:04 | PSY.TMCNF ---
Nursing - Vital Signs Vital Signs (Last 8 hours): Vital Signs 05/18/18 05/18/18 05/18/18 08:16 08:42 09:01 Temperature 97.3 F L Pulse Rate 91 H 82 Respiratory 20 Rate Blood Pressure 126/72 129/64 O2 Sat by Pulse 100 98 Oximetry 05/18/18 11:30 Temperature 97.3 F L Pulse Rate 82 Respiratory 20 Rate Blood Pressure 129/64 O2 Sat by Pulse Oximetry Pain: 0 - Precautions: Precautions: Fall Prevention - Medications/Other Issues Comment: -Insulin injection switched to PO by MD. Now pt is on Jnauvia and Glucotrol XL. - Repeat CT of head done for follow-up and possible initiation of ASA, result pending. - Consults Comment: Dr. Arroyo, Dr. Perez, Dr. Abebe-Mg - Toileting Toileting: Contact Guard - Bladder Management Bladder Pattern: Normal Voiding Method: Toilet Bladder Management: Supervision Frequency of Accidents: 0 - Bowel Management Bowel Pattern: Normal Bowel Management: Supervision Frequency of Accidents: 0 - Transfers Transfers: Minimal Assistance - ADL's ADL's: Minimal Assistance - Patient/Family Teaching Comments: Care post CVA and safety precautions - Goals/Time Frame Comments: Per multidisciplinary care plan - Provider Provider: Caroline ESTRADAN RN CRRN Physical Therapy - Bed Mobility Bed Mobility: Contact Guard - Transfers Wheelchair to Mat: Contact Guard Sit to Stand: Supervision, Verbal Cues, Contact Guard - Ambulation Level of Assistance: Contact Guard Distance (ft.): 125 Assistive Devices: Rolling Walker - Stair Negotiation Stairs: Level of Assistance: Verbal Cues, Contact Guard, Minimal Assistance Number of Stairs: 6 Handrails: Bilateral - Standing Balance Static Stand: Supervision Dynamic Stand: Contact Guard Assist - Pain Pain (assessed during therapy session): 0 Management Techniques: Medication Comment: occasional R neck, low back - Insight/Carryover Insight/Carryover: Good - Patient/Family Education Comment: CVA recovery, safety, plan of care and goals - Assessment/Plan Assessment: Ms Johnson presents with impaired dynamic standing balance, impaired activity tolerance, impaired safety awareness, weakness RUE/LE, imparied strength/ROM in RUE, impaired knowledge of compensatory, adaptive techniques and slighty defecits in cognition impacting patient's ability to complete self care routien, transfers and mobility safely and effectively. patient currently able to complete ub ADLs with s/u and lb ADLs with cga. pt benefits from intermittent minimal verbal cueing for safety and proper transfer technique/positioning. pt able to complete transfers/mobility with min A. reccommed tub transfer bench and commode for d/c. reccommend intermittent supervision /assist at home for bathing an iadls, reccommend cont [facility] OT services 5-6x/week to return pt to [facility]. - Goals Timeframe: 1 week Goals: mod I transfers. mod I UB ADLs. supervision LB ADLS. supervision shower transfer. mod I toileting tasks - Provider License Number: [id number] Occupational Therapy - Arousal/Attention/Orientation Patient Orientation: Person, Place, Time, Appropriate to Age, Appropriate to Situation - ADL/IADL Self Feeding: Verbal Cues, Set-up Help Grooming: Set-up Help Bathing-Upper Extremity: Supervision, Verbal Cues, Set-up Help Bathing-Lower Extremity: Supervision, Verbal Cues, Contact Guard Dressing-Upper Extremity: Set-up Help Dressing-Lower Extremity: Contact Guard - Sitting Balance Static Sitting: Supervision Dynamic Sitting: Requires supervision, Contact Guard Assist - Transfers Wheelchair to Bed Transfers: Contact Guard Toilet Transfers: Contact Guard Tub Transfers: Verbal Cues, Set-up Help, Contact Guard - Wheelchair Management Level of Assistance: Supervision, Verbal Cues Distance (ft.): 150 - Upper Extremity Status Right Upper Extremity Comment: R shoulder PROM WFLs. AROM R shoulder 60 degrees. R hand: synergistic movement patterns Left Upper Extremity Comment: WFL - Pain Pain (assessed during therapy session): 0 Alleviating Techniques: Medication Comment: occasional R neck, low back - Insight/Carryover Insight/Carryover: Good - Patient/Family Education Comment: CVA recovery, safety, plan of care and goals - Assessment/Plan Assessment: Ms Jhonson presents with impaired dynamic standing balance, impaired activity tolerance, impaired safety awareness, weakness RUE/LE, imparied strength/ROM in RUE, impaired knowledge of compensatory, adaptive techniques and slighty defecits in cognition impacting patient's ability to complete self care routien, transfers and mobility safely and effectively. patient currently able to complete ub ADLs with s/u and lb ADLs with cga. pt benefits from intermittent minimal verbal cueing for safety and proper transfer technique/positioning. pt able to complete transfers/mobility with min A. reccommed tub transfer bench and commode for d/c. reccommend intermittent supervision /assist at home for bathing an iadls, reccommend cont [facility] OT services 5-6x/week to return pt to [facility]. - Goals Timeframe: 1 week Goals: mod I transfers. mod I UB ADLs. supervision LB ADLS. supervision shower transfer. mod I toileting tasks - Provider Therapist: DEDE Gorman/L Speech Therapy - Consult Information Patient on Program: Yes Medical Diagnosis: CVA Treatment Diagnosis: mild cognitive deficits - Assessment Memory Impairment: Mild - Plan Assessment: Ms Johnson presents with impaired dynamic standing balance, impaired activity tolerance, impaired safety awareness, weakness RUE/LE, imparied strength/ROM in RUE, impaired knowledge of compensatory, adaptive techniques and slighty defecits in cognition impacting patient's ability to complete self care routien, transfers and mobility safely and effectively. patient currently able to complete ub ADLs with s/u and lb ADLs with cga. pt benefits from intermittent minimal verbal cueing for safety and proper transfer technique/positioning. pt able to complete transfers/mobility with min A. reccommed tub transfer bench and commode for d/c. reccommend intermittent supervision /assist at home for bathing an iadls, reccommend cont [facility] OT services 5-6x/week to return pt to [facility]. Plan: Continue Dysphagia Therapy, Continue Speech/Language Therapy - Provider Therapist: Rosalina Desai License Number: [id number] Recreational Therapy - Participation Participation: Participates in Individual and/or Group Sessions - Attendance Attendance: 3-5 times per week - Activities Leisure Activities: Crafts - Socialization Level of Socialization: Initiates/interacts freely with care givers and peer - Assessment Assessment/Plan: Ms Johnson presents with impaired dynamic standing balance, impaired activity tolerance, impaired safety awareness, weakness RUE/LE, imparied strength/ROM in RUE, impaired knowledge of compensatory, adaptive techniques and slighty defecits in cognition impacting patient's ability to complete self care routien, transfers and mobility safely and effectively. patient currently able to complete ub ADLs with s/u and lb ADLs with cga. pt benefits from intermittent minimal verbal cueing for safety and proper transfer technique/positioning. pt able to complete transfers/mobility with min A. reccommed tub transfer bench and commode for d/c. reccommend intermittent supervision /assist at home for bathing an iadls, reccommend cont [facility] OT services 5-6x/week to return pt to [facility]. - Provider Therapist: Michelle Miller Nutrition - Current Diet Current Diet/ Supplement/ Feedings: Moderate consistent CHO 2 gram Na advanced bite size thin liquids - Appetite Percent Meal Consumed: 50-74% - Comments Comments: Care post CVA and safety precautions - Assessment/Goals/Time Frame Assessment/Goals/Time Frame: -Insulin injection switched to PO by MD. Now pt is on Jnauvia and Glucotrol XL. - Repeat CT of head done for follow-up and possible initiation of ASA, result pending. - Provider Provider: Carisa Montenegro RD Case Management - Psychosocial Assessment Support Systems: Bexie Johnson/daughter/[phone] Psychological Interventions/Needs: Pt is alert and oriented x3, could benefit from supportive therapy for recent loss of daughter Discharge Concerns: Pt has 3 flights of stairs to negotiate Patient/Family Meeting: CM met with pt and rehab team Intervention/Goal/Outcome:: 1. Will reteam to determine safest discharge plan 2. Plan: home with skilled homecare vs [facility] 3. Emotional support 4. Will refer for reevaluation of increase of HOSPITAL NURSE services. - Discharge Plan Discharge Plan: Home with services - Provider Provider: STEVEN Yin, [employer] License Number: [id number] Rehabilitation Plan - Treatment Plan Treatment Plan: Physical Therapy, Occupational Therapy, Speech, Dietary, Patient /Family Education - Recommendation Recommendation: Physical Therapy, Occupational Therapy, Speech, Dietary - Discharge Plan Discharge to: Home (!3)
--- NOTE | 2018-05-18 17:05 | CP.PCM.PN ---
Subjective - Date & Time of Evaluation Date of Evaluation: 05/18/18 Time of Evaluation: 14:00 - Subjective Subjective: no acute complaints at present Objective - Vital Signs/Intake and Output Vital Signs (last 24 hours): Temp Pulse Resp BP Pulse Ox 97.3 F L 82 20 129/64 98 05/18/18 11:30 05/18/18 11:30 05/18/18 11:30 05/18/18 11:30 05/18/18 09:01 Intake and Output: 05/18/18 05/18/18 06:59 18:59 Intake Total 840 Output Total 700 Balance 140 - Medications Medications: Current Medications Acetaminophen (Tylenol 325mg Tab) 650 mg PO Q4 PRN PRN Reason: Pain scale 4-10 Last Admin: 05/16/18 21:01 Dose: 650 mg Al Hydrox/Mg Hydrox/Simethicone (Maalox Plus 30 Ml) 30 ml PO Q6 PRN PRN Reason: Indigestion / Heartburn Last Admin: 05/15/18 20:17 Dose: 30 ml Aspirin (Ecotrin) 81 mg PO DAILY [facility] Atorvastatin Calcium (Lipitor) 40 mg PO HS [facility] Last Admin: 05/17/18 22:00 Dose: 40 mg Glipizide (Glucotrol Xl) 10 mg PO BRK [facility] Last Admin: 05/18/18 08:17 Dose: 10 mg Sodium Chloride (Sodium Chloride 0.45%) 1,000 mls @ 80 mls/hr IV .[id number] ONE Stop: 05/19/18 06:29 Insulin Detemir (Levemir) 20 units SC HS [facility] Last Admin: 05/17/18 22:00 Dose: 20 units Insulin Human Lispro (Humalog) 0 units SC ACHS [facility] PRN Reason: Protocol Last Admin: 05/18/18 12:22 Dose: 8 units Losartan Potassium (Cozaar) 100 mg PO DAILY [facility] Last Admin: 05/18/18 08:16 Dose: 100 mg Metformin HCl (Glucophage) 500 mg PO 1200,1700 [facility] Last Admin: 05/16/18 17:34 Dose: Not Given Multivitamins/Minerals (Therapeutic-M Tab) 1 tab PO DAILY [facility] Last Admin: 05/18/18 08:16 Dose: 1 tab Nitroglycerin (Nitrostat Sl Tab) 0.4 mg SL Q5MIN PRN PRN Reason: chest pain [id number] Ethyl Esters (Lovaza) 2 gm PO DAILY [facility] Last Admin: 05/18/18 08:17 Dose: 2 gm Ondansetron HCl (Zofran Inj) 4 mg IVP Q6 PRN PRN Reason: Nausea/Vomiting Pantoprazole Sodium (Protonix Ec Tab) 40 mg PO DAILY@0630 [facility] Last Admin: 05/18/18 06:27 Dose: 40 mg Sitagliptin Phosphate (Januvia) 100 mg PO DAILY [facility] Last Admin: 05/18/18 08:17 Dose: 100 mg Valproate Sodium (Depakene Cap) 500 mg PO DAILY@2100 [facility] Last Admin: 05/17/18 22:00 Dose: 500 mg - Labs Labs: 05/16/18 05:10 05/17/18 05:06 - Head Exam Head Exam: ATRAUMATIC, NORMAL INSPECTION, NORMOCEPHALIC - Eye Exam Eye Exam: EOMI, Normal appearance, PERRL Pupil Exam: NORMAL ACCOMODATION - ENT Exam ENT Exam: Mucous Membranes Moist, Normal Exam - Neck Exam Neck Exam: Full ROM, Normal Inspection - Respiratory Exam Respiratory Exam: Clear to Ausculation Bilateral, NORMAL BREATHING PATTERN - Cardiovascular Exam Cardiovascular Exam: REGULAR RHYTHM - GI/Abdominal Exam GI & Abdominal Exam: Soft, Normal Bowel Sounds - Rectal Exam Rectal Exam: NORMAL INSPECTION - Exam External exam: NORMAL EXTERNAL EXAM - Extremities Exam Extremities Exam: Full ROM, Normal Capillary Refill, Normal Inspection - Back Exam Back Exam: NORMAL INSPECTION - Neurological Exam Neurological Exam: Alert, Awake Neuro motor strength exam: Left Upper Extremity: 3, Right Upper Extremity: 3, Left Lower Extremity: 3, Right Lower Extremity: 3 - Psychiatric Exam Psychiatric exam: Normal Affect, Normal Mood - Skin Skin Exam: Dry, Intact Assessment and Plan (1) Cerebellar hemorrhage Assessment & Plan: pt ot Rt and St status post team status post Ct radialogy neurology top follow up Dc for 23 Status: Acute (2) Dehydration Status: Acute (3) Hypertension Status: Chronic (4) Uncontrolled diabetes mellitus Status: Chronic
[2018-05-18] MEDS ORDERED: Sodium Chloride 0.45% 1,000 ML IV ONE (18:00)
[2018-05-18] MEDS: Insulin Detemir 100 Units/ml Inj SC SCH (21:11)
--- NOTE | 2018-05-18 21:28 | PN ---
Copied To: Sangita Perez MD Attending MD: Sangita Perez MD DATE: 05/18/2018 SUBJECTIVE: This is a 68-year-old female with recent uncontrolled type 2 insulin-requiring diabetes, currently undergoing acute rehabilitation therapy following a recent cerebellar hemorrhagic stroke as noted and is now being followed closely for metabolic management. Her glycemic levels are fluctuating as expected with glucose values ranging from 159 to 203 and 341 mg/dL. She has been taken off the prandial or mealtime insulin which she actually needs as we saw today with the glucose values fluctuating during her mealtime as noted. ASSESSMENT AND PLAN: We will continue the basal insulin given as Levemir at 20 units subcu at bedtime daily as given. We will also continue the Januvia given as 100 mg once daily as ordered. We will continue also her glipizide given as 10 mg once daily, although she can be maximized to b.i.d. before meals as noted. Her primary physician has taken over the diabetic management at this time as noted. We would highly recommend that she continues the basal insulin given as Levemir at 20 units subcu at bedtime daily as given. We will obtain serial chemistries and supplement accordingly needed. We will follow. Sangita Perez MD
[2018-05-19] MEDS: Pantoprazole 40 mg EC Tab PO SCH (06:18)
[2018-05-19] MEDS: Insulin Lispro (humaLOG) 100 Units/ml Inj SC SCH ×4 (06:30→21:23)
[2018-05-19] MEDS: GlipiZIDE 10 mg SR Tab PO SCH (08:01)
[2018-05-19] MEDS: Multivitamin With Minerals Tab PO SCH (08:02)
[2018-05-19] MEDS: Omega-3-Acid Ethyl Esters 1 GM Cap PO SCH (08:02)
--- NOTE | 2018-05-19 09:40 | CP.PCM.PN ---
Subjective - Date & Time of Evaluation Date of Evaluation: 05/19/18 Time of Evaluation: 09:39 - Subjective Subjective: Ms. Johnson was seen and examined at the bedside. She is alert, oriented. She denies any headache, dizziness, blurred vision, diplopia. She remains with right side weakness. She is able to move around the room using wheelchair. CTH showed no interval change in the appearance of what appears represent old hemorrhagic focus possibly associated with dystrophic type microcalcification left cerebellum with stable surrounding encephalomalacia as described. See above discussion for differential diagnostic considerations. . Note that this lesion is less well seen compared to prior MRI. Chronic white matter, basal nuclei and brainstem ischemic changes also less well seen compared the prior MRI. Mild moderate generalized volume loss.There was no untoward events overnight. Objective - Vital Signs/Intake and Output Vital Signs (last 24 hours): Temp Pulse Resp BP Pulse Ox 97.3 F L 93 H 20 103/54 L 98 05/19/18 08:47 05/19/18 08:47 05/19/18 08:47 05/19/18 08:47 05/19/18 08:47 Intake and Output: 05/19/18 05/19/18 06:59 18:59 Intake Total 1100 Balance 1100 - Medications Medications: Current Medications Acetaminophen (Tylenol 325mg Tab) 650 mg PO Q4 PRN PRN Reason: Pain scale 4-10 Last Admin: 05/19/18 08:05 Dose: 650 mg Al Hydrox/Mg Hydrox/Simethicone (Maalox Plus 30 Ml) 30 ml PO Q6 PRN PRN Reason: Indigestion / Heartburn Last Admin: 05/15/18 20:17 Dose: 30 ml Aspirin (Ecotrin) 81 mg PO DAILY [facility] Last Admin: 05/19/18 08:00 Dose: 81 mg Atorvastatin Calcium (Lipitor) 40 mg PO [facility] Last Admin: 05/18/18 21:10 Dose: 40 mg Glipizide (Glucotrol Xl) 10 mg PO BRK [facility] Last Admin: 05/19/18 08:01 Dose: 10 mg Insulin Detemir (Levemir) 20 units SC [facility] Last Admin: 05/18/18 21:11 Dose: 20 units Insulin Human Lispro (Humalog) 0 units SC [facility] PRN Reason: Protocol Last Admin: 05/19/18 06:30 Dose: Not Given Losartan Potassium (Cozaar) 100 mg PO DAILY [facility] Last Admin: 05/18/18 08:16 Dose: 100 mg Metformin HCl (Glucophage) 500 mg PO 1200,1700 [facility] Last Admin: 05/16/18 17:34 Dose: Not Given Multivitamins/Minerals (Therapeutic-M Tab) 1 tab PO DAILY [facility] Last Admin: 05/19/18 08:02 Dose: 1 tab Nitroglycerin (Nitrostat Sl Tab) 0.4 mg SL Q5MIN PRN PRN Reason: chest pain Vzisp-6-Wgfv Ethyl Esters (Lovaza) 2 gm PO DAILY [facility] Last Admin: 05/19/18 08:02 Dose: 2 gm Ondansetron HCl (Zofran Inj) 4 mg IVP Q6 PRN PRN Reason: Nausea/Vomiting Pantoprazole Sodium (Protonix Ec Tab) 40 mg PO DAILY@0630 [facility] Last Admin: 05/19/18 06:18 Dose: 40 mg Sitagliptin Phosphate (Januvia) 100 mg PO DAILY [facility] Last Admin: 05/19/18 08:01 Dose: 100 mg Valproate Sodium (Depakene Cap) 500 mg PO DAILY@2100 [facility] Last Admin: 05/18/18 21:10 Dose: 500 mg - Labs Labs: 05/16/18 05:10 05/17/18 05:06 - Constitutional Appears: No Acute Distress - Head Exam Head Exam: NORMAL INSPECTION - Neurological Exam Neurological Exam: Alert, Awake, Motor Sensory Deficit Neuro motor strength exam: Left Upper Extremity: 5, Right Upper Extremity: 4, Left Lower Extremity: 5, Right Lower Extremity: 4 Additional comments: neurological unchanged from previous examination. Assessment and Plan (1) Cerebellar hemorrhage Assessment & Plan: Continue current medical, physical, occupational, speech therapies. Recommend blood pressure and glycemic control, hydration, treat any electrolyte abnormalities. Status: Acute
[2018-05-19 10:15] LABS: ALB/GLOB RATIO 1.3 (1.0-2.1); ALBUMIN 3.3 g/dL (3.5-5.0); ALT/SGPT 33 U/L (9-52); AST/SGOT 19 U/L (14-36); BLOOD UREA NITROGEN 26 mg/dl (7-17); CALCIUM 8.7 mg/dL (8.4-10.2); GFR AFRICAN-AMERICAN > 60; GFR NON-AFRICAN AMERICAN > 60
--- NOTE | 2018-05-19 17:58 | PN ---
Copied To: Sangita Perez MD Attending MD: Sangita Perez MD DATE: 05/19/2018 ENDO FOLLOWUP NOTE LOCATION: Room 621 SUBJECTIVE: This is a 68-year-old female with recent uncontrolled type 2 insulin requiring diabetes, transferred here for acute rehabilitation following a recent hemorrhagic stroke in the cerebellar area and is now also being followed closely for metabolic management. Her glycemic levels are fluctuating with glucose values ranging from 108 to 287 and 345 mg/dL. LABORATORY DATA: Her latest chemistry showed BUN of 26, sodium 137, potassium 4.4, chloride of 100, CO2 of 27, glucose 280, and creatinine 0.7. ASSESSMENT AND PLAN: So, at this time, we will continue the same basal insulin given as Levemir at 20 units subcu at bedtime daily as given. She has been switched over to oral hypoglycemic therapy as ordered with a combination of Januvia at 100 mg daily and glipizide at 10 mg daily. We would recommend at least for inpatient management the resumption of the Humalog given to cover the meal time insulin requirement to prevent extremes of glycemic fluctuations thereof. We will obtain serial chemistries and supplement accordingly as needed. We will follow. Sangita Perez MD
[2018-05-19] MEDS: Insulin Detemir 100 Units/ml Inj SC SCH (21:21)
--- NOTE | 2018-05-19 23:39 | CP.PCM.PN ---
Subjective - Date & Time of Evaluation Date of Evaluation: 05/16/18 Time of Evaluation: 10:00 - Subjective Subjective: Patient remains stable Has problems with metformin. Objective - Vital Signs/Intake and Output Vital Signs (last 24 hours): Temp Pulse Resp BP Pulse Ox 98 F 75 20 125/59 L 99 05/19/18 20:00 05/19/18 20:00 05/19/18 20:00 05/19/18 20:00 05/19/18 20:00 Intake and Output: 05/19/18 05/20/18 18:59 06:59 Intake Total 720 Balance 720 - Medications Medications: Current Medications Acetaminophen (Tylenol 325mg Tab) 650 mg PO Q4 PRN PRN Reason: Pain scale 4-10 Last Admin: 05/19/18 08:05 Dose: 650 mg Al Hydrox/Mg Hydrox/Simethicone (Maalox Plus 30 Ml) 30 ml PO Q6 PRN PRN Reason: Indigestion / Heartburn Last Admin: 05/15/18 20:17 Dose: 30 ml Aspirin (Ecotrin) 81 mg PO DAILY [facility] Last Admin: 05/19/18 08:00 Dose: 81 mg Atorvastatin Calcium (Lipitor) 40 mg PO HS [facility] Last Admin: 05/19/18 21:20 Dose: 40 mg Glipizide (Glucotrol Xl) 10 mg PO BRK [facility] Last Admin: 05/19/18 08:01 Dose: 10 mg Insulin Detemir (Levemir) 20 units SC [facility] Last Admin: 05/19/18 21:21 Dose: 20 units Insulin Human Lispro (Humalog) 0 units SC [facility] PRN Reason: Protocol Last Admin: 05/19/18 21:23 Dose: Not Given Losartan Potassium (Cozaar) 50 mg PO DAILY [facility] Metformin HCl (Glucophage) 500 mg PO 1200,1700 [facility] Last Admin: 05/16/18 17:34 Dose: Not Given Multivitamins/Minerals (Therapeutic-M Tab) 1 tab PO DAILY [facility] Last Admin: 05/19/18 08:02 Dose: 1 tab Nitroglycerin (Nitrostat Sl Tab) 0.4 mg SL Q5MIN PRN PRN Reason: chest pain Iyxqi-4-Pdrh Ethyl Esters (Lovaza) 2 gm PO DAILY [facility] Last Admin: 05/19/18 08:02 Dose: 2 gm Ondansetron HCl (Zofran Inj) 4 mg IVP Q6 PRN PRN Reason: Nausea/Vomiting Pantoprazole Sodium (Protonix Ec Tab) 40 mg PO DAILY@0630 [facility] Last Admin: 05/19/18 06:18 Dose: 40 mg Sitagliptin Phosphate (Januvia) 100 mg PO DAILY [facility] Last Admin: 05/19/18 08:01 Dose: 100 mg Valproate Sodium (Depakene Cap) 500 mg PO DAILY@2100 [facility] Last Admin: 05/19/18 21:35 Dose: 500 mg - Labs Labs: 05/16/18 05:10 05/19/18 09:35 Assessment and Plan (1) Gait abnormality Status: Acute (2) Cerebellar hemorrhage Status: Acute (3) Dehydration Status: Acute (4) Hypertension Status: Chronic (5) Uncontrolled diabetes mellitus Status: Chronic
--- NOTE | 2018-05-19 23:41 | CP.PCM.PN ---
Subjective - Date & Time of Evaluation Date of Evaluation: 05/19/18 Time of Evaluation: 10:30 - Subjective Subjective: Patient remains stable Has no vomiting Has poor intake. Has no fever. Objective - Vital Signs/Intake and Output Vital Signs (last 24 hours): Temp Pulse Resp BP Pulse Ox 98 F 75 20 125/59 L 99 05/19/18 20:00 05/19/18 20:00 05/19/18 20:00 05/19/18 20:00 05/19/18 20:00 Intake and Output: 05/19/18 05/20/18 18:59 06:59 Intake Total 720 Balance 720 - Medications Medications: Current Medications Acetaminophen (Tylenol 325mg Tab) 650 mg PO Q4 PRN PRN Reason: Pain scale 4-10 Last Admin: 05/19/18 08:05 Dose: 650 mg Al Hydrox/Mg Hydrox/Simethicone (Maalox Plus 30 Ml) 30 ml PO Q6 PRN PRN Reason: Indigestion / Heartburn Last Admin: 05/15/18 20:17 Dose: 30 ml Aspirin (Ecotrin) 81 mg PO DAILY [facility] Last Admin: 05/19/18 08:00 Dose: 81 mg Atorvastatin Calcium (Lipitor) 40 mg PO HS [facility] Last Admin: 05/19/18 21:20 Dose: 40 mg Glipizide (Glucotrol Xl) 10 mg PO BRK [facility] Last Admin: 05/19/18 08:01 Dose: 10 mg Insulin Detemir (Levemir) 20 units SC HS [facility] Last Admin: 05/19/18 21:21 Dose: 20 units Insulin Human Lispro (Humalog) 0 units SC [facility] PRN Reason: Protocol Last Admin: 05/19/18 21:23 Dose: Not Given Losartan Potassium (Cozaar) 50 mg PO DAILY [facility] Metformin HCl (Glucophage) 500 mg PO 1200,1700 [facility] Last Admin: 05/16/18 17:34 Dose: Not Given Multivitamins/Minerals (Therapeutic-M Tab) 1 tab PO DAILY [facility] Last Admin: 05/19/18 08:02 Dose: 1 tab Nitroglycerin (Nitrostat Sl Tab) 0.4 mg SL Q5MIN PRN PRN Reason: chest pain Wgmqt-5-[id number] Ethyl Esters (Lovaza) 2 gm PO DAILY [facility] Last Admin: 08/09/18 08:02 Dose: 2 gm Ondansetron HCl (Zofran Inj) 4 mg IVP Q6 PRN PRN Reason: Nausea/Vomiting Pantoprazole Sodium (Protonix Ec Tab) 40 mg PO DAILY@0630 [facility] Last Admin: 05/19/18 06:18 Dose: 40 mg Sitagliptin Phosphate (Januvia) 100 mg PO DAILY [facility] Last Admin: 05/19/18 08:01 Dose: 100 mg Valproate Sodium (Depakene Cap) 500 mg PO DAILY@2100 [facility] Last Admin: 05/19/18 21:35 Dose: 500 mg - Labs Labs: 05/16/18 05:10 05/19/18 09:35 Assessment and Plan (1) Gait abnormality Status: Acute (2) Cerebellar hemorrhage Status: Acute (3) Dehydration Status: Acute (4) Hypertension Status: Chronic (5) Uncontrolled diabetes mellitus Status: Chronic
[2018-05-20] MEDS: Pantoprazole 40 mg EC Tab PO SCH (06:49)
[2018-05-20] MEDS: GlipiZIDE 10 mg SR Tab PO SCH (08:34)
[2018-05-20] MEDS: Omega-3-Acid Ethyl Esters 1 GM Cap PO SCH (08:34)
[2018-05-20] MEDS: Insulin Lispro (humaLOG) 100 Units/ml Inj SC SCH ×4 (08:35→21:00)
[2018-05-20] MEDS: Multivitamin With Minerals Tab PO SCH (08:35)
--- NOTE | 2018-05-20 09:12 | CP.PCM.PN ---
Subjective - Date & Time of Evaluation Date of Evaluation: 05/20/18 Time of Evaluation: 09:11 - Subjective Subjective: Ms. Johnson was seen and examined at the bedside. She is alert, oriented. She denies any headache, dizziness, blurred vision, diplopia. She remains with right side weakness, but does assist with her ADL's.She is able to transfer from bed to wheelchair with minimal assistance. She is motivated with her therapy. There was no untoward events overnight. Objective - Vital Signs/Intake and Output Vital Signs (last 24 hours): Temp Pulse Resp BP Pulse Ox 96.3 F L 84 20 109/67 99 05/20/18 07:35 05/20/18 08:33 05/20/18 07:35 05/20/18 08:33 05/20/18 07:35 - Medications Medications: Current Medications Acetaminophen (Tylenol 325mg Tab) 650 mg PO Q4 PRN PRN Reason: Pain scale 4-10 Last Admin: 05/20/18 06:49 Dose: 650 mg Al Hydrox/Mg Hydrox/Simethicone (Maalox Plus 30 Ml) 30 ml PO Q6 PRN PRN Reason: Indigestion / Heartburn Last Admin: 05/15/18 20:17 Dose: 30 ml Aspirin (Ecotrin) 81 mg PO DAILY [facility] Last Admin: 05/20/18 08:34 Dose: 81 mg Atorvastatin Calcium (Lipitor) 40 mg PO HS [facility] Last Admin: 05/19/18 21:20 Dose: 40 mg Glipizide (Glucotrol Xl) 10 mg PO BRK [facility] Last Admin: 05/20/18 08:34 Dose: 10 mg Insulin Detemir (Levemir) 20 units SC HS [facility] Last Admin: 05/19/18 21:21 Dose: 20 units Insulin Human Lispro (Humalog) 0 units SC [facility] PRN Reason: Protocol Last Admin: 05/20/18 08:35 Dose: 4 units Losartan Potassium (Cozaar) 50 mg PO DAILY [facility] Last Admin: 05/20/18 08:33 Dose: Not Given Metformin HCl (Glucophage) 500 mg PO 1200,1700 [facility] Last Admin: 05/16/18 17:34 Dose: Not Given Multivitamins/Minerals (Therapeutic-M Tab) 1 tab PO DAILY [facility] Last Admin: 08/10/18 08:35 Dose: 1 tab Nitroglycerin (Nitrostat Sl Tab) 0.4 mg SL Q5MIN PRN PRN Reason: chest pain Ydehf-5-Dppi Ethyl Esters (Lovaza) 2 gm PO DAILY [facility] Last Admin: 05/20/18 08:34 Dose: 2 gm Ondansetron HCl (Zofran Inj) 4 mg IVP Q6 PRN PRN Reason: Nausea/Vomiting Pantoprazole Sodium (Protonix Ec Tab) 40 mg PO DAILY@0630 [facility] Last Admin: 05/20/18 06:49 Dose: 40 mg Sitagliptin Phosphate (Januvia) 100 mg PO DAILY [facility] Last Admin: 05/20/18 08:34 Dose: 100 mg Valproate Sodium (Depakene Cap) 500 mg PO DAILY@2100 [facility] Last Admin: 05/19/18 21:35 Dose: 500 mg - Labs Labs: 05/16/18 05:10 05/19/18 09:35 - Constitutional Appears: No Acute Distress - Head Exam Head Exam: NORMAL INSPECTION - Eye Exam Pupil Exam: PERRL - Neurological Exam Neurological Exam: Alert, Awake, Oriented x3 Neuro motor strength exam: Left Upper Extremity: 4, Right Upper Extremity: 2/1, Left Lower Extremity: 4, Right Lower Extremity: 3 Additional comments: neurological improving, assist with her ADL's. Assessment and Plan (1) Cerebellar hemorrhage Assessment & Plan: Continue current medical, physical, occupational, speech therapies. Recommend blood pressure and glycemic control, hydration, treat any electrolyte abnormalities. Status: Acute
[2018-05-20] MEDS: Lidocaine 5% Patch TD SCH (11:30)
--- NOTE | 2018-05-20 12:43 | CP.PCM.CON ---
History of Present Illness - History of Present Illness History of Present Illness: Pt seen for sup therapy 12-12:20. Pt spoke of discharge next week. Pt discussed forward thinking, plan for different apt to increase independence and quality of life. pt less dysphoric, less preoccupied with losses and focused on her future. Pt adjusted well. plan: continued Sup therapy Past Patient History - Past Medical History & Family History Past Medical History?: Yes - Past Social History Smoking Status: Light Smoker < 10 Cigarettes Daily - CARDIAC Hx Hypertension: Yes - PULMONARY Hx Respiratory Disorders: No - NEUROLOGICAL HX Cerebrovascular Accident: Yes - HEENT Hx HEENT Problems: No - RENAL Hx Chronic Kidney Disease: No - ENDOCRINE/METABOLIC Hx Diabetes Mellitus Type 2: Yes - HEMATOLOGICAL/ONCOLOGICAL Hx Blood Disorders: No - INTEGUMENTARY Hx Dermatological Problems: No - MUSCULOSKELETAL/RHEUMATOLOGICAL Hx Falls: Yes - GASTROINTESTINAL Hx Gastrointestinal Disorders: No - GENITOURINARY/GYNECOLOGICAL Hx Incontinence: Yes - PSYCHIATRIC Hx Depression: Yes Hx Substance Use: No - SURGICAL HISTORY Hx Cholecystectomy: Yes - ANESTHESIA Hx Anesthesia: Yes Hx Anesthesia Reactions: No Hx Malignant Hyperthermia: No Meds Allergies/Adverse Reactions: Allergies Allergy/AdvReac Type Severity Reaction Status Date / Time No Known Allergies Allergy Verified 05/09/18 14:48 - Medications Medications: Current Medications Acetaminophen (Tylenol 325mg Tab) 650 mg PO Q4 PRN PRN Reason: Pain scale 4-10 Last Admin: 05/20/18 06:49 Dose: 650 mg Al Hydrox/Mg Hydrox/Simethicone (Maalox Plus 30 Ml) 30 ml PO Q6 PRN PRN Reason: Indigestion / Heartburn Last Admin: 05/15/18 20:17 Dose: 30 ml Aspirin (Ecotrin) 81 mg PO DAILY [facility] Last Admin: 05/20/18 08:34 Dose: 81 mg Atorvastatin Calcium (Lipitor) 40 mg PO HS [facility] Last Admin: 05/19/18 21:20 Dose: 40 mg Glipizide (Glucotrol Xl) 10 mg PO BRK [facility] Last Admin: 05/20/18 08:34 Dose: 10 mg Glipizide (Glucotrol Xl) 5 mg PO BRK [facility] Insulin Detemir (Levemir) 20 units SC [facility] Last Admin: 05/19/18 21:21 Dose: 20 units Insulin Human Lispro (Humalog) 0 units SC [facility] PRN Reason: Protocol Last Admin: 05/20/18 11:31 Dose: 8 units Lidocaine (Lidoderm) 1 ea TD DAILY [facility] Last Admin: 05/20/18 11:30 Dose: 1 ea Losartan Potassium (Cozaar) 50 mg PO DAILY [facility] Last Admin: 05/20/18 08:33 Dose: Not Given Metformin HCl (Glucophage) 500 mg PO 1200,1700 [facility] Last Admin: 05/16/18 17:34 Dose: Not Given Multivitamins/Minerals (Therapeutic-M Tab) 1 tab PO DAILY [facility] Last Admin: 05/20/18 08:35 Dose: 1 tab Nitroglycerin (Nitrostat Sl Tab) 0.4 mg SL Q5MIN PRN PRN Reason: chest pain Brrgu-0-Ciej Ethyl Esters (Lovaza) 2 gm PO DAILY [facility] Last Admin: 05/20/18 08:34 Dose: 2 gm Ondansetron HCl (Zofran Inj) 4 mg IVP Q6 PRN PRN Reason: Nausea/Vomiting Pantoprazole Sodium (Protonix Ec Tab) 40 mg PO DAILY@0630 [facility] Last Admin: 05/20/18 06:49 Dose: 40 mg Sitagliptin Phosphate (Januvia) 100 mg PO DAILY [facility] Last Admin: 05/20/18 08:34 Dose: 100 mg Valproate Sodium (Depakene Cap) 500 mg PO DAILY@2100 [facility] Last Admin: 05/19/18 21:35 Dose: 500 mg Results - Vital Signs Recent Vital Signs: Last Vital Signs Temp 96.3 F L 05/20/18 07:35 Pulse 84 05/20/18 08:33 Resp 20 05/20/18 07:35 BP 109/67 05/20/18 08:33 Pulse Ox 99 05/20/18 07:35 - Labs Result Diagrams: 05/16/18 05:10 05/19/18 09:35 Labs: Laboratory Results - last 24 hr 05/19/18 05/19/18 05/20/18 15:51 20:49 06:15 POC Glucose (mg/dL) 287 H 198 H 215 H 05/20/18 11:14 POC Glucose (mg/dL) 303 H
--- NOTE | 2018-05-20 15:33 | CP.PCM.PN ---
Subjective - Date & Time of Evaluation Date of Evaluation: 05/20/18 Time of Evaluation: 12:00 - Subjective Subjective: no acute complaints at present Objective - Vital Signs/Intake and Output Vital Signs (last 24 hours): Temp Pulse Resp BP Pulse Ox 96.3 F L 84 20 109/67 99 05/20/18 07:35 05/20/18 08:33 05/20/18 07:35 05/20/18 08:33 05/20/18 07:35 - Medications Medications: Current Medications Acetaminophen (Tylenol 325mg Tab) 650 mg PO Q4 PRN PRN Reason: Pain scale 4-10 Last Admin: 05/20/18 06:49 Dose: 650 mg Al Hydrox/Mg Hydrox/Simethicone (Maalox Plus 30 Ml) 30 ml PO Q6 PRN PRN Reason: Indigestion / Heartburn Last Admin: 05/15/18 20:17 Dose: 30 ml Aspirin (Ecotrin) 81 mg PO DAILY [facility] Last Admin: 05/20/18 08:34 Dose: 81 mg Atorvastatin Calcium (Lipitor) 40 mg PO HS [facility] Last Admin: 05/19/18 21:20 Dose: 40 mg Glipizide (Glucotrol Xl) 10 mg PO BRK [facility] Last Admin: 05/20/18 08:34 Dose: 10 mg Glipizide (Glucotrol Xl) 5 mg PO BRK [facility] Insulin Detemir (Levemir) 20 units SC HS [facility] Last Admin: 05/19/18 21:21 Dose: 20 units Insulin Human Lispro (Humalog) 0 units SC [facility] PRN Reason: Protocol Last Admin: 05/20/18 11:31 Dose: 8 units Lidocaine (Lidoderm) 1 ea TD DAILY [facility] Last Admin: 05/20/18 11:30 Dose: 1 ea Losartan Potassium (Cozaar) 50 mg PO DAILY [facility] Last Admin: 05/20/18 08:33 Dose: Not Given Metformin HCl (Glucophage) 500 mg PO 1200,1700 [facility] Last Admin: 05/16/18 17:34 Dose: Not Given Multivitamins/Minerals (Therapeutic-M Tab) 1 tab PO DAILY [facility] Last Admin: 05/20/18 08:35 Dose: 1 tab Nitroglycerin (Nitrostat Sl Tab) 0.4 mg SL Q5MIN PRN PRN Reason: chest pain Tevry-5-Azmw Ethyl Esters (Lovaza) 2 gm PO DAILY [facility] Last Admin: 05/20/18 08:34 Dose: 2 gm Ondansetron HCl (Zofran Inj) 4 mg IVP Q6 PRN PRN Reason: Nausea/Vomiting Pantoprazole Sodium (Protonix Ec Tab) 40 mg PO DAILY@0630 [facility] Last Admin: 05/20/18 06:49 Dose: 40 mg Sitagliptin Phosphate (Januvia) 100 mg PO DAILY [facility] Last Admin: 05/20/18 08:34 Dose: 100 mg Valproate Sodium (Depakene Cap) 500 mg PO DAILY@2100 [facility] Last Admin: 05/19/18 21:35 Dose: 500 mg - Labs Labs: 05/16/18 05:10 05/19/18 09:35 - Head Exam Head Exam: ATRAUMATIC, NORMAL INSPECTION, NORMOCEPHALIC - Eye Exam Eye Exam: EOMI, Normal appearance, PERRL Pupil Exam: NORMAL ACCOMODATION - ENT Exam ENT Exam: Mucous Membranes Moist, Normal Exam - Neck Exam Neck Exam: Normal Inspection - Respiratory Exam Respiratory Exam: Clear to Ausculation Bilateral, NORMAL BREATHING PATTERN - Cardiovascular Exam Cardiovascular Exam: REGULAR RHYTHM - GI/Abdominal Exam GI & Abdominal Exam: Soft, Normal Bowel Sounds - Rectal Exam Rectal Exam: NORMAL INSPECTION - Exam External exam: NORMAL EXTERNAL EXAM - Extremities Exam Extremities Exam: Full ROM, Normal Capillary Refill, Normal Inspection - Back Exam Back Exam: NORMAL INSPECTION - Neurological Exam Neurological Exam: Alert, Awake Neuro motor strength exam: Left Upper Extremity: 3, Right Upper Extremity: 3, Left Lower Extremity: 3, Right Lower Extremity: 3 - Psychiatric Exam Psychiatric exam: Normal Affect, Normal Mood - Skin Skin Exam: Dry, Normal Color Assessment and Plan (1) Cerebellar hemorrhage Assessment & Plan: plan to continue with physical, occupational rec therapy Dc planning Status: Acute (2) Dehydration Status: Acute (3) Hypertension Status: Chronic (4) Uncontrolled diabetes mellitus Status: Chronic
--- NOTE | 2018-05-20 16:42 | CP.PCM.PN ---
Subjective - Date & Time of Evaluation Date of Evaluation: 05/20/18 Time of Evaluation: 11:25 - Subjective Subjective: Pt seen this am w/ Dr. Bangura. No acute events overnight; has been participating in PT and appears in good spirits. Objective - Vital Signs/Intake and Output Vital Signs (last 24 hours): Temp Pulse Resp BP Pulse Ox 96.3 F L 84 20 109/67 99 05/20/18 07:35 05/20/18 08:33 05/20/18 07:35 05/20/18 08:33 05/20/18 07:35 - Medications Medications: Current Medications Acetaminophen (Tylenol 325mg Tab) 650 mg PO Q4 PRN PRN Reason: Pain scale 4-10 Last Admin: 05/20/18 06:49 Dose: 650 mg Al Hydrox/Mg Hydrox/Simethicone (Maalox Plus 30 Ml) 30 ml PO Q6 PRN PRN Reason: Indigestion / Heartburn Last Admin: 05/15/18 20:17 Dose: 30 ml Aspirin (Ecotrin) 81 mg PO DAILY REPLACED BY [facility] Last Admin: 05/20/18 08:34 Dose: 81 mg Atorvastatin Calcium (Lipitor) 40 mg PO HS REPLACED BY [facility] Last Admin: 05/19/18 21:20 Dose: 40 mg Glipizide (Glucotrol Xl) 10 mg PO BRK REPLACED BY [facility] Last Admin: 05/20/18 08:34 Dose: 10 mg Glipizide (Glucotrol Xl) 5 mg PO BRK REPLACED BY [facility] Insulin Detemir (Levemir) 20 units SC [facility] Last Admin: 05/19/18 21:21 Dose: 20 units Insulin Human Lispro (Humalog) 0 units SC [facility] REPLACED BY [facility] PRN Reason: Protocol Last Admin: 05/20/18 11:31 Dose: 8 units Lidocaine (Lidoderm) 1 ea TD DAILY REPLACED BY [facility] Last Admin: 05/20/18 11:30 Dose: 1 ea Losartan Potassium (Cozaar) 50 mg PO DAILY REPLACED BY [facility] Last Admin: 05/20/18 08:33 Dose: Not Given Metformin HCl (Glucophage) 500 mg PO 1200,1700 REPLACED BY [facility] Last Admin: 05/16/18 17:34 Dose: Not Given Multivitamins/Minerals (Therapeutic-M Tab) 1 tab PO DAILY REPLACED BY [facility] Last Admin: 05/20/18 08:35 Dose: 1 tab Nitroglycerin (Nitrostat Sl Tab) 0.4 mg SL Q5MIN PRN PRN Reason: chest pain Nhaaw-0-Vaot Ethyl Esters (Lovaza) 2 gm PO DAILY REPLACED BY [facility] Last Admin: 05/20/18 08:34 Dose: 2 gm Ondansetron HCl (Zofran Inj) 4 mg IVP Q6 PRN PRN Reason: Nausea/Vomiting Pantoprazole Sodium (Protonix Ec Tab) 40 mg PO DAILY@0630 REPLACED BY [facility] Last Admin: 05/20/18 06:49 Dose: 40 mg Sitagliptin Phosphate (Januvia) 100 mg PO DAILY REPLACED BY [facility] Last Admin: 05/20/18 08:34 Dose: 100 mg Valproate Sodium (Depakene Cap) 500 mg PO DAILY@2100 REPLACED BY [facility] Last Admin: 05/19/18 21:35 Dose: 500 mg - Labs Labs: 05/16/18 05:10 05/19/18 09:35 - Constitutional Appears: Non-toxic, No Acute Distress - Eye Exam Eye Exam: Normal appearance - Respiratory Exam Respiratory Exam: NORMAL BREATHING PATTERN - Cardiovascular Exam Cardiovascular Exam: REGULAR RHYTHM - Extremities Exam Extremities Exam: Normal Inspection. absent: Calf Tenderness - Neurological Exam Neurological Exam: Alert, Oriented x3 - Psychiatric Exam Psychiatric exam: Normal Mood - Skin Skin Exam: Normal Color, Warm Assessment and Plan (1) Gait abnormality Status: Acute (2) Cerebellar hemorrhage Status: Acute (3) Hypertension Status: Chronic (4) Uncontrolled diabetes mellitus Status: Chronic - Assessment and Plan (Free Text) Plan: - increase glipizide to 10 mg QAM and 5mg QPM - continue with rehab therapies - encourage adequate hydration - insulin coverage scale protocol - rest of plan as ordered
[2018-05-20] MEDS ORDERED: GlipiZIDE 5 mg SR Tab PO SCH (19:00)
[2018-05-20] MEDS: Insulin Detemir 100 Units/ml Inj SC SCH (21:29)
--- NOTE | 2018-05-21 01:07 | PN ---
Copied To: Sangita Perez MD Attending MD: Sangita Perez MD DATE: 05/20/2018 ENDOCRINOLOGY FOLLOWUP NOTE LOCATION: Room 621. SUBJECTIVE: This is a 68-year-old female with recent uncontrolled type 2 insulin-requiring diabetes, now being followed closely for metabolic management. Her glycemic levels are fluctuating as noted today with glucose values ranging from 198 to 215 and 303 mg/dL. LABORATORY DATA: Her chemistry showed a BUN of 26, sodium 137, potassium 4.4, chloride 100, CO2 of 27, glucose 280, and creatinine 0.7. ASSESSMENT AND PLAN: So at this time, we will continue the same basal insulin given as Levemir at 20 units subcutaneously at bedtime daily as given. We will highly recommend that they resume her Humalog insulin analog given three times a day before meals to optimize her mealtime insulin requirement and to prevent extremes of glycemic accelerations as noted over the past week or so since she was taken off the Humalog insulin given before meals as noted. We will continue her Januvia given as 100 mg daily and glipizide given as 10 mg daily. We will obtain serial chemistries and supplement accordingly as needed. We will follow. Sangita Perez MD
[2018-05-21] MEDS: Pantoprazole 40 mg EC Tab PO SCH (06:29)
[2018-05-21] MEDS: Insulin Lispro (humaLOG) 100 Units/ml Inj SC SCH ×4 (06:32→21:17)
[2018-05-21] MEDS: Omega-3-Acid Ethyl Esters 1 GM Cap PO SCH (08:58)
[2018-05-21] MEDS: Lidocaine 5% Patch TD SCH (08:59)
[2018-05-21] MEDS: GlipiZIDE 10 mg SR Tab PO SCH (08:59)
[2018-05-21] MEDS: Multivitamin With Minerals Tab PO SCH (09:00)
[2018-05-21] MEDS: GlipiZIDE 5 mg SR Tab PO SCH (17:06)
[2018-05-21] MEDS: Insulin Detemir 100 Units/ml Inj SC SCH (21:17)
[2018-05-22] MEDS: Pantoprazole 40 mg EC Tab PO SCH (06:50)
[2018-05-22] MEDS: Insulin Lispro (humaLOG) 100 Units/ml Inj SC SCH ×4 (06:51→21:00)
[2018-05-22] MEDS: GlipiZIDE 10 mg SR Tab PO SCH (08:40)
[2018-05-22] MEDS: Lidocaine 5% Patch TD SCH (08:41)
[2018-05-22] MEDS: Multivitamin With Minerals Tab PO SCH (08:42)
[2018-05-22] MEDS: Omega-3-Acid Ethyl Esters 1 GM Cap PO SCH (08:42)
--- NOTE | 2018-05-22 16:20 | PN ---
Copied To: Sangita Perez MD Attending MD: Sangita Perez MD DATE: 05/22/2018 ENDO FOLLOWUP NOTE LOCATION: In room 621. SUBJECTIVE: This is a 68-year-old female with recent uncontrolled type 2 insulin-requiring diabetes, now being followed closely for metabolic management. Her glycemic levels are fluctuating as noted with glucose values ranging from 282 to 378 mg/dL. LABORATORY DATA: Her latest chemistries showed a BUN of 26, sodium 137, potassium 4.4, chloride 100, CO2 of 27, glucose 280, and creatinine 0.7. ASSESSMENT AND PLAN: So at this time, we will continue the same basal insulin given overnight with Levemir given as 20 units subcutaneously at bedtime daily as given. We will continue also the oral hypoglycemic therapy as ordered. We would highly recommend resumption of her Humalog insulin given t.i.d. before meals to lower the postprandial hyperglycemic accelerations as observed in the last week or so since this was discontinued thereof. We will obtain serial chemistries and supplement accordingly as needed. We will follow. Sangita Perez MD
[2018-05-22] MEDS: GlipiZIDE 5 mg SR Tab PO SCH (17:20)
[2018-05-22 20:09] VITALS: TEMP 97.2
[2018-05-22] MEDS: Insulin Detemir 100 Units/ml Inj SC SCH (21:12)
[2018-05-22 23:10] VITALS: RESP 20
[2018-05-23] MEDS: Pantoprazole 40 mg EC Tab PO SCH (06:37)
[2018-05-23 06:59] LABS: BASO # 0.1 K/uL (0.0-0.2); BASO % 1.2 % (0.0-2.0); EOS # 0.3 K/uL (0.0-0.7); EOS % 2.6 % (0.0-4.0); HEMOGLOBIN 13.2 g/dL (12.0-16.0); LYMPH % 30.6 % (20.0-40.0); MEAN CELL VOLUME 86.7 fl (81.0-99.0); MEAN CORPUSCULAR HEMOGLOBIN 29.1 pg (27.0-31.0); MEAN CORPUSCULAR HGB CONC 33.5 g/dL (33.0-37.0); MEAN PLATELET VOLUME 10.8 fl (7.2-11.7); MONO # 0.4 K/uL (0.0-0.8); MONO % 4.1 % (0.0-10.0); NEUT # 6.1 K/uL (1.8-7.0); NEUT % 61.5 % (50.0-75.0); NRBC % 0.1 % (0.0-0.0); RBC 4.55 Mil/uL (3.80-5.20); RED CELL DISTRIBUTION WIDTH 14.1 % (11.5-14.5); WHITE BLOOD COUNT 9.9 K/uL (4.8-10.8)
[2018-05-23 07:37] LABS: ALB/GLOB RATIO 1.3 (1.0-2.1); ALBUMIN 3.8 g/dL (3.5-5.0); ALT/SGPT 24 U/L (9-52); AST/SGOT 17 U/L (14-36); BLOOD UREA NITROGEN 34 mg/dl (7-17); CALCIUM 9.4 mg/dL (8.4-10.2); GFR AFRICAN-AMERICAN > 60; GFR NON-AFRICAN AMERICAN > 60
[2018-05-23 07:41] VITALS: BP 129/63; PULSE 81; O2SAT 99
[2018-05-23] MEDS: Insulin Lispro (humaLOG) 100 Units/ml Inj SC SCH (07:45)
[2018-05-23] MEDS: GlipiZIDE 10 mg SR Tab PO SCH (07:49)
[2018-05-23] MEDS: Lidocaine 5% Patch TD SCH (08:02)
[2018-05-23] MEDS: Multivitamin With Minerals Tab PO SCH (08:02)
[2018-05-23] MEDS: Omega-3-Acid Ethyl Esters 1 GM Cap PO SCH (08:02)
--- NOTE | 2018-05-23 09:41 | CP.PCM.PN ---
Subjective - Date & Time of Evaluation Date of Evaluation: 05/23/18 Time of Evaluation: 09:41 - Subjective Subjective: Ms. Johnson was seen and examined at the bedside. She is alert, oriented. She denies any headache, dizziness, blurred vision, diplopia. She remains with right side weakness, but able to assist with her ADL's. She is excited to go home today. She is motivated to continue her therapy at home. There was no untoward events overnight. Objective - Vital Signs/Intake and Output Vital Signs (last 24 hours): Temp Pulse Resp BP Pulse Ox 97.2 F L 81 20 129/63 99 05/23/18 07:41 05/23/18 08:01 05/23/18 07:41 05/23/18 08:01 05/23/18 07:41 - Medications Medications: Current Medications Acetaminophen (Tylenol 325mg Tab) 650 mg PO Q4 PRN PRN Reason: Pain scale 4-10 Last Admin: 05/22/18 22:46 Dose: 650 mg Al Hydrox/Mg Hydrox/Simethicone (Maalox Plus 30 Ml) 30 ml PO Q6 PRN PRN Reason: Indigestion / Heartburn Last Admin: 05/15/18 20:17 Dose: 30 ml Aspirin (Ecotrin) 81 mg PO DAILY [facility] Last Admin: 05/23/18 08:01 Dose: 81 mg Atorvastatin Calcium (Lipitor) 40 mg PO HS [facility] Last Admin: 05/22/18 21:11 Dose: 40 mg Glipizide (Glucotrol Xl) 10 mg PO BRK [facility] Last Admin: 05/23/18 07:49 Dose: 10 mg Glipizide (Glucotrol Xl) 5 mg PO DAILY@1800 [facility] Last Admin: 05/22/18 17:20 Dose: 5 mg Insulin Detemir (Levemir) 20 units SC [facility] Last Admin: 05/22/18 21:12 Dose: 20 units Insulin Human Lispro (Humalog) 0 units SC [facility] PRN Reason: Protocol Last Admin: 05/23/18 07:45 Dose: 6 units Lidocaine (Lidoderm) 1 ea TD DAILY [facility] Last Admin: 05/23/18 08:02 Dose: 1 ea Losartan Potassium (Cozaar) 50 mg PO DAILY [facility] Last Admin: 05/23/18 08:01 Dose: 50 mg Metformin HCl (Glucophage) 500 mg PO 1200,1700 [facility] Last Admin: 05/16/18 17:34 Dose: Not Given Multivitamins/Minerals (Therapeutic-M Tab) 1 tab PO DAILY [facility] Last Admin: 05/23/18 08:02 Dose: 1 tab Nitroglycerin (Nitrostat Sl Tab) 0.4 mg SL Q5MIN PRN PRN Reason: chest pain [id number]-Bjed Ethyl Esters (Lovaza) 2 gm PO DAILY [facility] Last Admin: 05/23/18 08:02 Dose: 2 gm Ondansetron HCl (Zofran Inj) 4 mg IVP Q6 PRN PRN Reason: Nausea/Vomiting Pantoprazole Sodium (Protonix Ec Tab) 40 mg PO DAILY@0630 [facility] Last Admin: 05/23/18 06:37 Dose: 40 mg Sitagliptin Phosphate (Januvia) 100 mg PO DAILY [facility] Last Admin: 05/23/18 08:01 Dose: 100 mg Valproate Sodium (Depakene Cap) 500 mg PO DAILY@2100 [facility] Last Admin: 05/22/18 20:09 Dose: 500 mg - Labs Labs: 05/23/18 06:30 05/23/18 06:30 - Constitutional Appears: No Acute Distress - Head Exam Head Exam: NORMAL INSPECTION - Eye Exam Pupil Exam: PERRL - Neurological Exam Neurological Exam: Alert, Awake, Oriented x3 Neuro motor strength exam: Left Upper Extremity: 5, Right Upper Extremity: 3, Left Lower Extremity: 5, Right Lower Extremity: 3 Additional comments: neurological unchanged from previous examination. Assessment and Plan (1) Cerebellar hemorrhage Assessment & Plan: Continue current medical, physical, occupational, speech therapies. Recommend blood pressure and glycemic control, hydration, treat any electrolyte abnormalities. Follow up with Dr. Castaneda at [address] [place] [address] [place] [id number], tel [phone]. Status: Acute
--- NOTE | 2018-05-23 18:28 | PN ---
Copied To: Sangita Perez MD Attending MD: Sangita Perez MD DATE: 05/23/2018 ENDO FOLLOWUP NOTE LOCATION: Room 621 SUBJECTIVE: This is a 68-year-old female with recent uncontrolled type 2 insulin-requiring diabetes, now being followed closely for metabolic management. Her glycemic levels are fluctuating but improved at this time and the glucose levels overnight have ranged from 196 to 252 mg/dL. ASSESSMENT AND PLAN: So, at this time, she is scheduled for possible discharge and she will follow with her medical doctor for outpatient medical and diabetic management. Would highly recommend resumption of the Humalog given t.i.d. before meals as ordered. She will also be continuing her Levemir given as 20 units subcutaneously at bedtime daily together with the oral hypoglycemic therapy as prescribed. We will follow. Sangita Perez MD
--- NOTE | 2018-05-24 15:26 | CP.PCM.PN ---
Subjective - Date & Time of Evaluation Date of Evaluation: 05/21/18 Time of Evaluation: 12:00 - Subjective Subjective: no acute complaints at present Objective - Vital Signs/Intake and Output Vital Signs (last 24 hours): Temp Pulse Resp BP Pulse Ox 97.2 F L 81 20 129/63 99 05/23/18 07:41 05/23/18 08:01 05/23/18 07:41 05/23/18 08:01 05/23/18 07:41 - Labs Labs: 05/23/18 06:30 05/23/18 06:30 - Head Exam Head Exam: ATRAUMATIC, NORMAL INSPECTION, NORMOCEPHALIC - Eye Exam Eye Exam: EOMI, Normal appearance, PERRL Pupil Exam: NORMAL ACCOMODATION - ENT Exam ENT Exam: Mucous Membranes Moist, Normal Exam - Neck Exam Neck Exam: Full ROM - Respiratory Exam Respiratory Exam: Clear to Ausculation Bilateral, NORMAL BREATHING PATTERN - Cardiovascular Exam Cardiovascular Exam: REGULAR RHYTHM - GI/Abdominal Exam GI & Abdominal Exam: Soft, Normal Bowel Sounds - Rectal Exam Rectal Exam: NORMAL INSPECTION - Exam External exam: NORMAL EXTERNAL EXAM - Extremities Exam Extremities Exam: Full ROM, Normal Capillary Refill, Normal Inspection - Back Exam Back Exam: NORMAL INSPECTION - Neurological Exam Neurological Exam: Alert, Awake Additional comments: no calf tenderness - Psychiatric Exam Psychiatric exam: Normal Affect, Normal Mood - Skin Skin Exam: Dry, Normal Color Assessment and Plan (1) Cerebellar hemorrhage Assessment & Plan: plan fo rphysical, occupational, rec therapy. Discharge planning for patient Status: Acute (2) Dehydration Status: Acute (3) Hypertension Status: Chronic (4) Uncontrolled diabetes mellitus Status: Chronic
== END 2018-05-23 12:45 | disposition home health service (06) | DRG 57 ==
PROVIDERS: ADMIT Family Medicine; ATTEND Family Medicine
PROC: F07Z9FZ Gait Training/Functional Ambulation Treatment using Assistive, Adaptive, Supportive or Protective Equipment (ICD-10-PCS; principal; 2018-05-09)
PROC: F08Z4FZ Home Management Treatment using Assistive, Adaptive, Supportive or Protective Equipment (ICD-10-PCS; 2018-05-09)
PROC: F07L6FZ Therapeutic Exercise Treatment of Musculoskeletal System - Lower Back / Lower Extremity using Assistive, Adaptive, Supportive or Protective Equipment (ICD-10-PCS; 2018-05-09)
DX: I69.151 Hemiplegia and hemiparesis following nontraumatic intracerebral hemorrhage affecting right dominant side (principal); E11.65 Type 2 diabetes mellitus with hyperglycemia; R26.89 Other abnormalities of gait and mobility; I10 Essential (primary) hypertension; E78.00 Pure hypercholesterolemia, unspecified; F32.9 Major depressive disorder, single episode, unspecified; G47.00 Insomnia, unspecified; Z79.4 Long term (current) use of insulin; F17.210 Nicotine dependence, cigarettes, uncomplicated